=== PATIENT | female | born 1975 | race Caucasian/White ===

== ENCOUNTER → 2024-09-12 | Outpatient (CLI) | payer OTHER, SELFPAY ==
--- NOTE | 2024-09-12 08:45 | XR_ITS ---
Examination: Screening digital mammography, bilateral Computer aided detection 3-D breast Tomosynthesis, bilateral Date and time of exam: September 12, 2024 at 0838 hours Compared to mammograms dating to August 24, 2014 Indication: Screening Technique: Nonmagnified MLO, CC views of the breasts to been obtained, reconstructed from 3-D Tomosynthesis images. R2 computer aided detection program utilized for evaluation of suspicious masses and/or abnormal calcifications. 3-D Tomosynthesis images obtained. Findings: Scattered areas of fibroglandular density 25 mm focus of architectural distortion inner left breast view posterior depth Impression: BI-RADS Category 0: Incomplete: Need additional imaging evaluation 25 mm focus of architectural distortion inner left breast posterior view, follow-up spot tomographic views of this architectural distortion is needed, as well as repeat left MLO view including much more of the posterior breast as well as left breast sonography to complete the workup
== END | disposition home or self-care (01) ==
PROVIDERS: Referring Provider Nurse Practitioner Family; Visit Provider Nurse Practitioner Family
DX: Z12.31 Encounter for screening mammogram for malignant neoplasm of breast (principal); R92.8 Other abnormal and inconclusive findings on diagnostic imaging of breast
CPT/HCPCS: 77063; 77067

== ENCOUNTER 2024-12-09 10:50 | Emergency (ER) | payer OTHER, SELFPAY ==
[2024-12-09 10:51] VITALS: BMI 22.2
[2024-12-09 11:11] VITALS: BP 106/73; PULSE 103; RESP 18; TEMP 36.5; O2SAT 99
--- NOTE | 2024-12-09 11:21 | PD.EDRME ---
Rapid Medical Screening Exam E Arrival date/time: 12/09/24 10:50 49-year-old female with a history of breast cancer presents to the emergency room with a chief complaint of vomiting blood and black stool. Patient states she has also felt increasing weakness. Patient states she called her cancer treatment center and was told to come to the emergency room. I have greeted and performed a focused initial assessment of this patient. A comprehensive ED assessment and evaluation of the patient, analysis of all test results, and completion of the medical decision making process will be conducted by additional ED providers. Chief Complaint: GI Bleed Vital signs: Vital Signs Temperature 97.7 F 12/09/24 11:11 Pulse Rate 103 H 12/09/24 11:11 Respiratory Rate 18 12/09/24 11:11 Blood Pressure 106/73 12/09/24 11:11 Pulse Oximetry (%) 99 12/09/24 11:11 Oxygen Delivery Method Room Air 12/09/24 11:11 Vital signs reviewed by provider: Yes
--- NOTE | 2024-12-09 11:24 | EKG_ITS ---
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
[2024-12-09 11:44] VITALS: BP 76/49; PULSE 80; RESP 17; O2SAT 100
[2024-12-09 11:54] LABS: Basophils # (Auto) 0.1 Thou/mm3 (0.0-0.2); Basophils % (Auto) 0 % (0-2.5); Eosinophils % (Auto) 0 % (0-10); Hematocrit 30.6 % (36.0-46.0); Hemoglobin 10.5 g/dL (12.0-16.0); Immature Granulocytes % (Auto) 4 % (0-0); Immature Granulocytes Auto 0.82 Thou/mm3 (0.00-0.00); Lymphocytes % (Auto) 9 % (10-50); Mean Corpuscular HGB Conc 34.3 g/dl (31.0-37.0); Mean Corpuscular Hemoglobin 30.2 pg (25.0-35.0); Mean Corpuscular Volume 88 fL (80-100); Monocytes # (Auto) 0.9 Thou/mm3 (0.0-0.8); Monocytes % (Auto) 4 % (0-12); Neutrophils # (Auto) 18.8 Thou/mm3 (1.8-7.7); Neutrophils % (Auto) 83 % (37-80); Nucleated Red Blood Cell % 0 /100 WBC (0); Platelet Count 248 Thou/mm3 (140-440); RDW Standard Deviation 40.8 fL (36.4-46.3); Red Blood Count 3.48 Miln/mm3 (4.00-5.20); White Blood Count 22.7 Thou/mm3 (3.6-11.0)
--- NOTE | 2024-12-09 12:01 | PD.EDADULT ---
ED General RME/HPI General Chief complaint: GI Bleed Stated complaint: VOMITING BLOOD SENT BY DOUGLAS SAHA PATIENT Time Seen by Provider: 12/09/24 11:52 Arrival date/time: 12/09/24 10:50 CC: Burgundy colored diarrhea, vomiting blood. HPI 2 episodes of bloody diarrhea at 730 and again at 830 this morning, 1 episode of bloody vomiting. Patient also complaining of lightheaded and dizziness. Patient has a history of gastric bypass. Patient has a recent history of breast cancer diagnosis with chemotherapy started on November 29, first round, first dose. RME / HPI RME / HPI narrative: 12/09/24 10:50 49-year-old female with a history of breast cancer presents to the emergency room with a chief complaint of vomiting blood and black stool. Patient states she has also felt increasing weakness. Patient states she called her cancer treatment center and was told to come to the emergency room. I have greeted and performed a focused initial assessment of this patient. A comprehensive ED assessment and evaluation of the patient, analysis of all test results, and completion of the medical decision making process will be conducted by additional ED providers. Related Data Home Medications ?Medication ?Instructions ?Recorded ?Confirmed amlodipine 5 mg tablet 5 mg PO QDAY 10/25/19 10/25/19 norethindrone (contraceptive) 0.35 0.35 mg PO QDAY 10/25/19 10/25/19 mg tablet (Kalani) paroxetine HCl 10 mg tablet (Paxil) 10 mg PO QDAY 10/25/19 10/25/19 Previous Rx's ?Medication ?Instructions ?Recorded alprazolam 1 mg tablet (Xanax) 1 mg PO BID PRN anxiety #14 tabs 10/25/19 zolpidem 10 mg tablet (Ambien) 10 mg PO QHSPRN PRN insomnia #14 10/25/19 tabs ciprofloxacin HCl 500 mg tablet 500 mg PO BID #14 tabs 12/09/24 (Cipro) Allergies Allergy/AdvReac Type Severity Reaction Status Date / Time avocado Allergy Severe Anaphylaxis Verified 10/25/19 18:03 coconut Allergy Severe Anaphylaxis Verified 10/25/19 18:03 walnut Allergy Severe Anaphylaxis Verified 10/25/19 18:03 Review of Systems Review of Systems Narrative Review of Systems: GEN: No fever, no chills, no weight loss EYES: No discharge, no visual changes, no pain HEENT: No ear pain, no congestion, no sore throat PULM: No shortness of breath, no cough, no congestion CV: No chest pain, no dyspnea on exertion, no palpitations GI: No nausea, no vomiting, + bloody diarrhea, no pain, no constipation : No frequency, no urgency, no dysuria MUSC/SKEL: No joint pain, no back pain SKIN: No rash PSYCH: No hallucinations, no depression HEME/LYMPH: No easy bleeding or bruising tendencies NEURO: No weakness, no headache ED Exam Narrative Physical exam: [General: Pale, not in any acute distress Head normocephalic HEENT: Eyes: Blanched conjunctiva, EOMs intact pupils are PERRLA, all other subsystems of HEENT are within acceptable limits Neck is supple nontender Chest equal chest rise nontender to palpation Respiratory: Clear to auscultation no wheezes crackles or rubs CV: Rate rhythm is regular no murmurs rubs or clicks Abdomen is soft nontender no masses positive bowel sounds all 4 quadrants Back: No CVA tenderness no spinous process tenderness from cervical spine thoracic and lumbar spine Skin: Right anterior chest port placement site clean dry and intact. Otherwise skin is intact no petechiae rash induration ulceration or crepitus Extremities: Moving all extremity against resistance cap refill less than 2 seconds neurosensory intact Neuro: Awake alert oriented x3 Glascow coma 15 no focal deficits] Course Course Course Narrative: Patient states after chemotherapy on the sixth on the 7 she received Neupogen, redraw of blood 3 days ago patient informed me that her white blood cell count was high . CT shows diffuse colitis, initially discussed with the patient the patient states she wanted to talk with Dr. Sommer who is on-call for his oncologist in [place] however after 45 minutes there is been no callback patient now wants to be discharged as suggested by Dr. Bay and myself. Quality Measures VTE prophylaxis Orders Category Date Time Status EKG (ED ONLY) *Do not use* NOW Care 12/09/24 11:[address] abdomen pelvis wo con Stat Exams 12/09/24 12:05 Completed EKG (ED Only) Stat Exams 12/09/24 11:24 Draft CBC Stat Lab 12/09/24 11:39 Completed CMP [Comprehensive Metabolic Panel] Stat Lab 12/09/24 11:39 Completed HCG Qualitative,Urine Stat Lab 12/09/24 12:53 Completed Lipase Stat Lab 12/09/24 11:39 Completed PT [Prothrombin Time with INR] Stat Lab 12/09/24 11:39 Completed PTT [Partial Thromboplastin Time] Stat Lab 12/09/24 11:39 Completed Troponin I Stat Lab 12/09/24 11:39 Completed Type and Screen Stat Lab 12/09/24 11:39 Completed UA [Urinalysis] Stat Lab 12/09/24 12:53 Completed Urine Culture Stat Lab 12/09/24 12:56 Received Ciprofloxacin HCl [Ciprofloxacin] Med 12/09/24 15:28 Discontinued 500 mg PO X1 ONE Vital Signs Vital signs: Vital Signs Temperature 97.7 F 12/09/24 11:11 Pulse Rate 103 H 12/09/24 11:11 Respiratory Rate 18 12/09/24 11:11 Blood Pressure 106/73 12/09/24 11:11 Pulse Oximetry (%) 99 12/09/24 11:11 Oxygen Delivery Method Room Air 12/09/24 11:11 [facility] Patient data External records reviewed:: [facility] previous records and EMS form Clinical information provided by:: patient and EMS Social determinants that could affect healthcare access:: none Patient has the following chronic illnesses:: Gastric bypass No breast cancer on chemotherapy. How is presenting disease/condition affected by chronic disease/condition?: uneffected by Evaluation data The following diagnostics were reviewed and interpreted by me:: lab results, radiology exam(s) and EKG tracing(s) Lab and/or radiology exams considered but not ordered:: CBC shows a leukocytosis of 22.7 and H&H of 10.5 and 30.6 respectively, platelets of 248. Coags within acceptable limits CMP shows sodium 137 potassium 3.4 chloride of 108 carbon dioxide of 19.9 gap of 9 BUN of 21 creatinine 0.7 total bili of 0.2 AST of 56 ALT 134 alk phos of 155 Troponin is negative Lipase of 58. Interpretation Summary: CBC shows a leukocytosis, with anemia however leukocytosis I suspect is secondary to the Neupogen. CT shows colitis. This was discussed with Dr. Bay who feels patient can be discharged home to follow-up with him within 5 to 7 days. Patient strongly advised of his worsening of symptoms or fever return immediately to the emergency room for reevaluation. Medications Medications considered but not ordered:: None Medication administrations:: Medication Administration History Discontinued Medications Ciprofloxacin (Ciprofloxacin Hcl 250 Mg Tablet) 500 mg PO X1 ONE Stop: 12/09/24 15:29 None Consultations Consultation(s) initiated? (list below): No Diagnosis Differential Diagnosis ED Complaint MDM: Colitis perforation ileus Most likely diagnosis given after review of the tests above:: Colitis Admission Indicated Admission indicated?: not indicated Explain why admission is indicated or not indicated:: Stable for discharge Admission Request Was there a request for admission?: No Disposition Plan Disposition Plan: Discharge Discharge Attestation Discharge Attestation: The patient and all family members were given an opportunity to ask questions and understood the discharge instructions. Discharge instructions specifically effects, indications for sooner follow up or return to the emergency department, and the expected course of current diagnosis. Patient condition: Stable Medical Decision Making Differential Diagnosis Differential Diagnosis: Colitis perforation ileus Lab Data 12/09/24 11:39 12/09/24 11:39 Labs: Lab Results 12/09/24 12/09/24 Range/Units 11:39 12:53 WBC 22.7 H (3.6-11.0) Thou/mm3 RBC 3.48 L (4.00-5.20) Miln/mm3 Hgb 10.5 L (12.0-16.0) g/dL Hct 30.6 L (36.0-46.0) % MCV 88 (80-100) fL MCH 30.2 (25.0-35.0) pg MCHC 34.3 (31.0-37.0) g/dl RDW Std Deviation 40.8 (36.4-46.3) fL Plt Count 248 (140-440) Thou/mm3 Neut % (Auto) 83 H (37-80) % Lymph % (Auto) 9 L (10-50) % [place] % (Auto) 4 (0-12) % Eos % (Auto) 0 (0-10) % Baso % (Auto) 0 (0-2.5) % Neut # (Auto) 18.8 H (1.8-7.7) Thou/mm3 Lymph # (Auto) 2.0 (1.0-4.8) Thou/mm3 [place] # (Auto) 0.9 H (0.0-0.8) Thou/mm3 Eos # (Auto) 0.0 (0.0-0.5) Thou/mm3 Baso # (Auto) 0.1 (0.0-0.2) Thou/mm3 Immature Gran # (Auto) 0.82 H (0.00-0.00) Thou/mm3 Absolute Nucleated RBC 0.00 (0.00-0.00) Thou/mm3 Immature Gran % 4 H (0-0) % Nucleated RBC % 0 (0) /100 WBC PT 11.3 (9.0-12.2) Seconds INR 1.0 (0.9-1.3) APTT 23.0 (22.0-36.0) Seconds Sodium 137 (136-145) mMol/L Potassium 3.4 (3.4-5.1) mMol/L Chloride 108 H (98-107) mMol/L Carbon Dioxide 19.9 L (20.0-31.0) mMol/L Anion Gap 9 (7-16) BUN 21 (9-23) mg/dL Creatinine 0.7 (0.6-1.3) mg/dL Estim Creat Clear Calc 92.5 (>60) mL/min eGFR > 60 (60 - ) See Note BUN/Creatinine Ratio 30 H (12-20) Ratio Glucose 169 H (74-106) mg/dL Calculated Osmolality 280 (275-295) Calcium 9.1 (8.3-10.6) mg/dL Corrected Calcium 9.3 (8.5-10.1) mg/dL Total Bilirubin 0.2 L (0.3-1.2) mg/dL AST 56 H (0-34) U/L ALT 134 H (10-49) U/L Alkaline Phosphatase 155 H (46-116) U/L Troponin I < 0.002 (0.0-0.045) ng/mL Total Protein 5.7 (5.7-8.2) gm/dL Albumin 3.8 (3.5-5.0) gm/dL Globulin 1.9 L (2.3-3.5) gm/dL Albumin/Globulin Ratio 2.0 (1.2-2.2) Lipase 58 H (12-53) U/L Ur Collection Type Clean Catch Urine Color Yellow (Lt Yel-Yel) Urine Clarity Clear (Clear/Hazy) Urine pH 6.0 (5.0-7.0) Ur Specific [place] 1.030 (1.001-1.035) Urine Protein 1+ A (Neg - Trace) Urine Glucose (UA) Negative (Negative) Urine Ketones 1+ A (Negative) Urine Blood Negative (Negative) Urine Nitrite Negative (Negative) Urine Bilirubin 1+ A (Negative) Urine Urobilinogen (Auto) Negative (0.0-1.0) mg/dL Ur Leukocyte Esterase Negative (Negative) Urine RBC 1 (0-3) /hpf Urine WBC 3 (0-5) /hpf Ur Squamous Epith Cells 1 (0-5) /hpf Urine Bacteria Rare (None) Urine HCG, Qual Negative Blood Type A Negative Antibody Screen NEGATIVE Blood Bank Wristband ID Yes Discharge Plan Plan Patient Disposition: HOME (Self Care) Patient condition on transfer: Stable Prescriptions/Referrals Prescriptions/Med Rec: New ciprofloxacin HCl [Cipro] 500 mg tablet 500 mg PO BID Qty: 14 0RF No Action paroxetine HCl [Paxil] 10 mg Tablet 10 mg PO QDAY amlodipine 5 mg Tablet 5 mg PO QDAY norethindrone (contraceptive) [Kalani] 0.35 mg Tablet 0.35 mg PO QDAY zolpidem [Ambien] 10 mg tablet 10 mg PO QHSPRN PRN (Reason: insomnia) Qty: 14 0RF alprazolam [Xanax] 1 mg tablet 1 mg PO BID PRN (Reason: anxiety) Qty: 14 0RF Referrals: Elliot Boggs MD [Primary Care Provider] - In 1 week Jae Bay MD [Physician] - In 1 week Problem List Clinical Impression: Colitis, Bloody diarrhea Patient/Caregiver Discharge Instructions Education Materials: Understanding Colitis Additional Instructions: Take the antibiotics as prescribed, follow-up with Dr. Bay in 1 week if there is worsening of symptoms in spite of the medications return the emergency room immediately for further evaluation. Print Language: Romansh Stand Alone Forms: Randee Award Info., Patient Portal Info Letter, Work/School Release PA/STEWARD/STEWARDESS SECOND CLASS Supervising Physician PA/STEWARD/STEWARDESS SECOND CLASS Supervising Physician: Shawn Hernandez ENP
--- NOTE | 2024-12-09 12:05 | XR_ITS ---
Examination: CT abdomen and pelvis without contrast. Coronal 3-D reconstructions. Sagittal 2-D reconstructions. Date and time of exam:December 09, 2024 1424 hrs. Indications: Bloody diarrhea this week CTDI: vol (mGy): 6.16 DLP: (mGycm): 308 Technique: Axial images of the abdomen have been obtained, 3 mm slice thickness Intravenous contrast material has not been administered. Low dose protocols were performed. One or more of the following dose reduction techniques were used; automated exposure control, adjustment of the mA and/or KV according to patient size, use of iterative reconstruction technique. Findings: No focal liver or splenic lesions Absent gallbladder Gastric sutures No pancreatic or adrenal mass No renal or ureteral calculi, no hydronephrosis Diffuse colitis pattern with fluid-filled colon and wall thickening No bowel obstruction No bladder mass Advanced degenerative disc disease L5-S1 No pelvic mass Impression: Diffuse nonspecific colitis pattern, differential would include ulcerative colitis, Crohn's disease
[2024-12-09 12:22] LABS: Alanine Aminotransferase 134 U/L (10-49); Albumin, Serum 3.8 gm/dL (3.5-5.0); Alkaline Phosphatase 155 U/L (46-116); Anion Gap 9 (7-16); Aspartate Amino Transferase 56 U/L (0-34); BUN/Creatinine Ratio 30 Ratio (12-20); Bilirubin,Total 0.2 mg/dL (0.3-1.2); Blood Urea Nitrogen 21 mg/dL (9-23); Calcium 9.1 mg/dL (8.3-10.6); Calcium (Corrected) 9.3 mg/dL (8.5-10.1); Carbon Dioxide 19.9 mMol/L (20.0-31.0); Chloride 108 mMol/L (98-107); Creatinine (Component) 0.7 mg/dL (0.6-1.3); Estimated Creatinine Clearance 92.5 mL/min (>60); Globulin 1.9 gm/dL (2.3-3.5); Glucose 169 mg/dL (74-106); Lipase 58 U/L (12-53); Osmolality,Calculated 280 (275-295); Potassium 3.4 mMol/L (3.4-5.1); Sodium 137 mMol/L (136-145); Total Protein 5.7 gm/dL (5.7-8.2); Troponin I < 0.002 ng/mL (0.0-0.045); eGFR > 60 See Note
[2024-12-09 12:27] LABS: Prothrombin Time 11.3 Seconds (9.0-12.2)
[2024-12-09 12:30] VITALS: BP 99/63; PULSE 82; RESP 16; O2SAT 96
[2024-12-09 13:22] LABS: Collection Type, Urine Clean Catch
[2024-12-09 13:36] LABS: Bacteria,Urine Rare; Bilirubin,Urine 1+ (Negative); Blood,Urine Negative (Negative); Clarity,Urine Clear (Clear/Hazy); Color,Urine Yellow (Lt Yel-Yel); Glucose, Urine Negative (Negative); Ketones,Urine 1+ (Negative); Leukocyte Esterase,Urine Negative (Negative); Nitrite,Urine Negative (Negative); Protein,Urine 1+ (Neg - Trace); RBC,Urine 1 /hpf (0-3); Squamous Epithelial Cell,Urine 1 /hpf (0-5); Urobilinogen,Urine Negative mg/dL (0.0-1.0); WBC,Urine 3 /hpf (0-5)
[2024-12-09 13:37] LABS: HCG Qualitative,Urine Negative
--- NOTE | 2024-12-09 13:38 | PC.NURSE ---
ASSISTED PT TO BR, PT LIGHT HEADED WHEN SHE GOT UP TO BATHROOM, THIS RN ASSISTED PT TO WHEELCHAIR. PT ABLE TO PROVIDE URINE. DENIES ANY ABDOMINAL DISCOMFORT AT THIS TIME, DENIES HAVING AND NAUSEA AT THIS TIME OR ANY PAIN. PT IS IN AGREEMENT WITH POC, MOM AT BEDSIDE, VSS ON TELE. WILL CONTINUE TO FOLLOW POC.
[2024-12-09 14:54] VITALS: BP 118/69; PULSE 82; RESP 17; TEMP 36.8; O2SAT 95
[2024-12-09 16:09] VITALS: BP 107/75; PULSE 94; RESP 16; TEMP 36.7; O2SAT 95
[2024-12-09] MEDS: CIPROFLOXACIN HCL 250 MG TABLET 500 MG PO (16:26)
[2024-12-09 16:37] VITALS: BP 107/75; PULSE 92; RESP 20; TEMP 36.7; O2SAT 100
== END 2024-12-09 16:39 | disposition home or self-care (01) ==
PROVIDERS: Nurse Practitioner Family; Emergency Provider Emergency Medicine; PCP Hospitalist
DX: K52.9 Noninfective gastroenteritis and colitis, unspecified (principal)
CPT/HCPCS: 36415; 74176; 80053; 81001; 81025; 83690; 84484; 85025; 85610; 85730; 86850; 86900; 86901; 87086; 93005; 99284; A9270

== ENCOUNTER 2024-12-10 19:41 | Inpatient (IN) | payer OTHER, SELFPAY ==
[2024-12-10] VITALS (22 sets, daily range): BP systolic 71–121; BP diastolic 45–66; PULSE 101–132; RESP 3–100; TEMP 36.3–36.9; O2SAT 96–100; BMI 23.0
--- NOTE | 2024-12-10 19:45 | PD.EDADULT ---
ED General RME/HPI General Chief complaint: Nausea/Vomiting/Diarrhea Stated complaint: LOW BLOOD PRESSURE DIARRHEA Time Seen by Provider: 12/10/24 19:44 Arrival date/time: 12/10/24 19:41 CC: Syncope HPI patient presents to the ER via EMS with hypotension and syncope after passing a large amount of bloody diarrhea. Patient was seen here yesterday by myself, the patient has a history of breast cancer recent diagnosis started on her first round of chemotherapy on November 29, patient is followed by cancer center in [place]. Patient had a complete workup yesterday including a CT of the abdomen pelvis which showed pancolitis. Patient's case at that time was discussed with Dr. Bay who agrees patient can go home to follow-up with him in 1 week on outpatient basis however today the patient had a large bowel movement that resulted in syncope. Patient is pale appearing awake alert EMS report hypotension but no repeat syncope during transport. Patient denies chest pain shortness of breath. Related Data Home Medications ?Medication ?Instructions ?Recorded ?Confirmed amlodipine 5 mg tablet 5 mg PO QDAY 10/25/19 10/25/19 norethindrone (contraceptive) 0.35 0.35 mg PO QDAY 10/25/19 10/25/19 mg tablet (Kalani) paroxetine HCl 10 mg tablet (Paxil) 10 mg PO QDAY 10/25/19 10/25/19 Previous Rx's ?Medication ?Instructions ?Recorded alprazolam 1 mg tablet (Xanax) 1 mg PO BID PRN anxiety #14 tabs 10/25/19 zolpidem 10 mg tablet (Ambien) 10 mg PO QHSPRN PRN insomnia #14 10/25/19 tabs ciprofloxacin HCl 500 mg tablet 500 mg PO BID #14 tabs 12/09/24 (Cipro) Allergies Allergy/AdvReac Type Severity Reaction Status Date / Time avocado Allergy Severe Anaphylaxis Verified 10/25/19 18:03 coconut Allergy Severe Anaphylaxis Verified 10/25/19 18:03 walnut Allergy Severe Anaphylaxis Verified 10/25/19 18:03 Review of Systems Review of Systems Narrative Review of Systems: GEN: No fever, no chills, no weight loss EYES: No discharge, no visual changes, no pain HEENT: No ear pain, no congestion, no sore throat PULM: No shortness of breath, no cough, no congestion CV: No chest pain, no dyspnea on exertion, no palpitations GI: No nausea, no vomiting, + diarrhea, no pain, no constipation : No frequency, no urgency, no dysuria MUSC/SKEL: No joint pain, no back pain SKIN: No rash PSYCH: No hallucinations, no depression HEME/LYMPH: No easy bleeding or bruising tendencies NEURO: No weakness, no headache Past Medical History Past Medical History CARDIAC: Positive Hypertension; Negative Congestive Heart Failure RESPIRATORY: Negative Chronic Obstructive Pulmonary Disease (COPD) GENITOURINARY: Negative Renal Disease ENDOCRINE: Negative Diabetes Mellitus Type 1 or Diabetes Mellitus Type 2 PSYCHO/SOCIAL: Positive Anxiety Surgical History SURGICAL: Positive Abdominal Surgery (cholecystectomy), Gastric Bypass Surgery and Section (2) Social History SMOKING STATUS: Never smoker SUBSTANCE USE: does not use ED Exam Narrative Physical exam: [General: In moderate discomfort but not in any acute distress Head normocephalic HEENT: Eyes pupils are PERRLA EOMs are intact blanched conjunctiva mouth pink and pale dry membranes swallow symmetrical phonation is normal. Nose no rhinorrhea or otorrhea. All other subsystems of HEENT are within acceptable limits Neck is supple nontender Chest equal chest rise nontender to palpation Respiratory: Clear to auscultation no wheezes crackles or rubs CV: Rate rhythm is regular, tachycardic no murmurs rubs or clicks Abdomen is soft nontender no masses positive bowel sounds all 4 quadrants Back: No CVA tenderness no spinous process tenderness from cervical spine thoracic and lumbar spine Skin: PowerPort in the right anterior chest insertion site clean dry and intact healing well. Overall pale pale, intact no petechiae rash induration ulceration or crepitus Extremities: Moving all extremity against resistance cap refill less than 2 seconds neurosensory intact Neuro: Awake alert oriented x3 Glascow coma 15 no focal deficits] Course Quality Measures none Orders Category Date Time Status Assistant Mechanic STAT Care 12/10/24 20:52 Active Continuous Pulse Oximetry STAT Care 12/10/24 20:52 Completed EKG (ED ONLY) *Do not use* NOW Care 12/10/24 19:50 Completed In and Out Catheter X1PRN Care 12/10/24 20:52 Active NPO STAT Care 12/10/24 20:52 Active Strict Intake and Output Routine Care 12/10/24 20:52 Ordered Transfuse,blood/blood products NOW Care 12/10/24 21:09 Active Consult to Gastroenterology Stat Cons 12/10/24 21:20 Ordered EKG (ED Only) Stat Exams 12/10/24 19:50 Draft B-Type Natriuretic Peptide Stat Lab 12/10/24 20:10 Completed Blood Culture (Lab) Stat Lab 12/10/24 20:10 Received CBC Stat Lab 12/10/24 20:10 Results Comprehensive Metabolic Panel Stat Lab 12/10/24 20:10 Results Drug Screen,Urine Stat Lab 12/10/24 19:50 Ordered LDH (Lactate Dehydrogenase) Stat Lab 12/10/24 20:10 Results Lactic Acid [Lactate (Lactic Acid)] Stat Lab 12/10/24 20:10 Results Lipase Stat Lab 12/10/24 20:10 Results Magnesium Stat Lab 12/10/24 20:10 Results Partial Thromboplastin Time Stat Lab 12/10/24 20:[address] Review Blood Smear Stat Lab 12/10/24 20:10 Results Procalcitonin Stat Lab 12/10/24 20:10 Results Prothrombin Time with INR Stat Lab 12/10/24 20:10 Received Stool Culture Stat Lab 12/10/24 20:02 Ordered Troponin I Stat Lab 12/10/24 20:10 Results Type and Screen Stat Lab 12/10/24 20:10 Results Urinalysis Stat Lab 12/10/24 19:50 Ordered prbc [Red Blood Cells] Stat Lab 12/10/24 20:10 Results Acetaminophen Ivpb [Ofirmev Inj] Med 12/10/24 20:26 Pending 1,000 mg in 100 ml IV Q6HR CIPROFLOXACIN/D5w 400 MG IVPB [Cipro Ivpb] Med 12/10/24 20:48 Active 400 mg in 200 ml IV X1 POTASSIUM CHL 10 mEq IVPB [Kcl Ivpb] Med 12/10/24 21:19 Ordered 10 meq in 100 ml IV Q1H Ringers Lactated 1000 ml [Lactated Ringers] 1,000 ml Med 12/10/24 19:51 Discontinued IV 999 mls/hr Ringers Lactated 1000 ml [Lactated Ringers] 1,000 ml Med 12/10/24 20:01 Discontinued IV 999 mls/hr Ringers Lactated 1000 ml [Lactated Ringers] 1,000 ml Med 12/10/24 20:48 Active IV 999 mls/hr metroNIDAZOLE/NS 500 MG IVPB [Flagyl 500 mg IV] Med 12/10/24 21:16 Ordered 500 mg in 100 ml IV Q8HR Oxygen Delivery NOW RT 12/10/24 20:52 Active Vital Signs Vital signs: Vital Signs Temperature 97.6 F 12/10/24 19:55 Pulse Rate 125 H 12/10/24 19:55 Respiratory Rate 20 12/10/24 19:55 Blood Pressure 71/49 L 12/10/24 19:55 Pulse Oximetry (%) 96 12/10/24 19:55 Oxygen Delivery Method Room Air 12/10/24 19:55 [facility] Patient data External records reviewed:: [facility] previous records and EMS form Clinical information provided by:: patient and EMS Social determinants that could affect healthcare access:: none Patient has the following chronic illnesses:: Breast cancer, gastric bypass, first round of chemotherapy 11 days ago How is presenting disease/condition affected by chronic disease/condition?: exacerbated by Evaluation data The following diagnostics were reviewed and interpreted by me:: lab results, radiology exam(s) and EKG tracing(s) Lab and/or radiology exams considered but not ordered:: EKG performed at 2005 shows a ventricular rate of 126 WI interval 133 QRS of 8 5 QTc of 417 the sinus tachycardia nonspecific ST segment changes. CBC shows WBCs at 45.7 H&H of 5.7 and 16 respectively which is a 5 g of drop from 24 hours ago. Platelets at 227 left shift no bandemia CMP shows sodium 140 potassium of 2.8 chloride of 111 carbon oxide of 16.9 anion gap of 12 BUN of 1220 creatinine of 0.8 glucose of 164 Lactic of 4.1 Calcium of 8.2 Total bilirubin of 0.2 ALT elevated 7 1 Interpretation Summary: Patient's laboratory findings thus far were discussed with Dr. Bay, GI who agrees to consult with the patient with admission start the patient on Cipro and Flagyl liquid diet. Patient's case discussed with Dr. Seo agrees to accept the patient for admission, patient is in agreement with this plan. Medications Medications considered but not ordered:: None Medication administrations:: Medication Administration History Acetaminophen (Ofirmev Inj) 1,000 mg in 100 mls @ 250 mls/hr IV Q6HR DWAYNE Stop: 12/11/24 12:23 Lactated Ringer's (Lactated Ringers) 1,000 mls @ 999 mls/hr IV .Q1H1M ONE Stop: 12/10/24 21:48 Ciprofloxacin/Dextrose (Cipro Ivpb) 400 mg in 200 mls @ 200 mls/hr IV X1 ONE Stop: 12/10/24 21:47 Metronidazole (Flagyl 500 Mg Iv) 500 mg in 100 mls @ 200 mls/hr IV Q8HR DWAYNE Stop: 12/17/24 21:15 Potassium Chloride (Kcl Ivpb) 10 meq in 100 mls @ 100 mls/hr IV Q1H DWAYNE Stop: 12/11/24 01:18 Discontinued Medications Lactated Ringer's (Lactated Ringers) 1,000 mls @ 999 mls/hr IV .Q1H1M ONE Stop: 12/10/24 20:51 Last Admin: 12/10/24 20:15 Dose: 999 mls/hr Documented By: TC Lactated Ringer's (Lactated Ringers) 1,000 mls @ 999 mls/hr IV .Q1H1M ONE Stop: 12/10/24 21:01 Last Admin: 12/10/24 20:14 Dose: 999 mls/hr Documented By: MELVIN None Consultations Consultation(s) initiated? (list below): Yes Consultation #1 (Physician, Specialty, Details): Phu Time: 21:29 Diagnosis Differential Diagnosis ED Complaint MDM: Leukocytosis hemorrhagic anemia diarrhea hypokalemia hypocalcemia syncope Most likely diagnosis given after review of the tests above:: Dehydration syncope leukocytosis anemia, diarrhea hypokalemia hypocalcemia Admission Indicated Admission indicated?: indicated Explain why admission is indicated or not indicated:: Requires further medical management Admission Request Was there a request for admission?: No Disposition Plan Disposition Plan: Admit Medical Decision Making Differential Diagnosis Differential Diagnosis: Leukocytosis hemorrhagic anemia diarrhea hypokalemia hypocalcemia syncope Lab Data 12/10/24 20:10 12/10/24 20:10 Labs: Lab Results 12/10/24 Range/Units 20:10 WBC 45.7 H* D (3.6-11.0) Thou/mm3 RBC 1.84 L* (4.00-5.20) Miln/mm3 Hgb 5.7 L* D (12.0-16.0) g/dL Hct 16.1 L* (36.0-46.0) % MCV 88 (80-100) fL MCH 31.0 (25.0-35.0) pg MCHC 35.4 (31.0-37.0) g/dl RDW Std Deviation 39.8 (36.4-46.3) fL Plt Count 227 (140-440) Thou/mm3 Neut % (Auto) 83 H (37-80) % Lymph % (Auto) 11 (10-50) % Arthur % (Auto) 3 (0-12) % Eos % (Auto) 0 (0-10) % Baso % (Auto) 0 (0-2.5) % Neut # (Auto) 37.8 H (1.8-7.7) Thou/mm3 Lymph # (Auto) 4.8 (1.0-4.8) Thou/mm3 Arthur # (Auto) 1.5 H (0.0-0.8) Thou/mm3 Eos # (Auto) 0.0 (0.0-0.5) Thou/mm3 Baso # (Auto) 0.1 (0.0-0.2) Thou/mm3 Immature Gran # (Auto) 1.50 H (0.00-0.00) Thou/mm3 Absolute Nucleated RBC 0.05 H (0.00-0.00) Thou/mm3 Immature Gran % 3 H (0-0) % Nucleated RBC % 0 (0) /100 WBC Sodium 140 (136-145) mMol/L Potassium 2.8 L D (3.4-5.1) mMol/L Chloride 111 H (98-107) mMol/L Carbon Dioxide 16.9 L (20.0-31.0) mMol/L Anion Gap 12 (7-16) BUN 20 (9-23) mg/dL Creatinine 0.8 (0.6-1.3) mg/dL Estim Creat Clear Calc 80.9 (>60) mL/min eGFR > 60 (60 - ) See Note BUN/Creatinine Ratio 25 H (12-20) Ratio Glucose 164 H (74-106) mg/dL Calculated Osmolality 286 (275-295) Lactic Acid 4.1 H* (0.4-2.0) mMol/L Calcium 8.2 L (8.3-10.6) mg/dL Corrected Calcium 9.1 (8.5-10.1) mg/dL Magnesium 1.6 (1.6-2.6) mg/dL Total Bilirubin 0.2 L (0.3-1.2) mg/dL AST 28 (0-34) U/L ALT 71 H (10-49) U/L Alkaline Phosphatase 111 D (46-116) U/L B-Natriuretic Peptide < 20 (0-100) pg/mL Total Protein 4.4 L (5.7-8.2) gm/dL Albumin 2.9 L D (3.5-5.0) gm/dL Globulin 1.5 L (2.3-3.5) gm/dL Albumin/Globulin Ratio 1.9 (1.2-2.2) Lipase 48 (12-53) U/L Procalcitonin 0.11 (0.0-0.49) ng/ml Blood Type A Negative Antibody Screen NEGATIVE Crossmatch See Detail Blood Bank Wristband ID Yes Discharge Plan Plan Patient Disposition: Other Care w/in Hosp ([facility]) Patient condition on transfer: Stable Prescriptions/Referrals Prescriptions/Med Rec: No Action paroxetine HCl [Paxil] 10 mg Tablet 10 mg PO QDAY amlodipine 5 mg Tablet 5 mg PO QDAY norethindrone (contraceptive) [Kalani] 0.35 mg Tablet 0.35 mg PO QDAY zolpidem [Ambien] 10 mg tablet 10 mg PO QHSPRN PRN (Reason: insomnia) Qty: 14 0RF alprazolam [Xanax] 1 mg tablet 1 mg PO BID PRN (Reason: anxiety) Qty: 14 0RF ciprofloxacin HCl [Cipro] 500 mg tablet 500 mg PO BID Qty: 14 0RF Problem List Clinical Impression: Syncope, Bloody diarrhea, Hypotension, Anemia, Hypokalemia, Hypocalcemia, Sepsis Patient/Caregiver Discharge Instructions Print Language: Cook Islander Stand Alone Forms: Randee Award Info., Patient Portal Info Letter
--- NOTE | 2024-12-10 19:50 | EKG_ITS ---
[facility] Test Date: 2024-12-10 Pat Name: ZAFAR MONSON Department: Room: - Gender: Female Logistics Administrator: : 1975 Requested By: Shawn Valverde Order Number: [id number] Reading MD: Shawn Valverde Measurements Intervals Decker Rate: 126 P: 76 NM: 133 QRS: 63 QRSD: 85 T: 59 QT: 342 QTc: 496 Interpretive Statements SINUS TACHYCARDIA NONSPECIFIC ST & T-WAVE ABNORMALITY ABNORMAL RHYTHM ECG Compared to ECG 12/09/2024 11:29:08 Sinus rhythm no longer present T-wave abnormality still present /store/S0/[id number]/ecg/[id number].pdf
[2024-12-10] MEDS: RINGERS LACTATED 1000 ML 1,000 ML 999 ML IV ×3 (20:14→21:43)
[2024-12-10 20:47] LABS: Lactate (Lactic Acid) 4.1 mMol/L (0.4-2.0)
[2024-12-10 20:48] LABS: Basophils # (Auto) 0.1 Thou/mm3 (0.0-0.2); Basophils % (Auto) 0 % (0-2.5); Eosinophils % (Auto) 0 % (0-10); Immature Granulocytes % (Auto) 3 % (0-0); Lymphocytes # (Auto) 4.8 Thou/mm3 (1.0-4.8); Lymphocytes % (Auto) 11 % (10-50); Mean Corpuscular HGB Conc 35.4 g/dl (31.0-37.0); Mean Corpuscular Volume 88 fL (80-100); Monocytes # (Auto) 1.5 Thou/mm3 (0.0-0.8); Monocytes % (Auto) 3 % (0-12); Neutrophils # (Auto) 37.8 Thou/mm3 (1.8-7.7); Neutrophils % (Auto) 83 % (37-80); Nucleated Red Blood Cell # 0.05 Thou/mm3 (0.00-0.00); Nucleated Red Blood Cell % 0 /100 WBC (0); Platelet Count 227 Thou/mm3 (140-440); RDW Standard Deviation 39.8 fL (36.4-46.3)
[2024-12-10 21:09] LABS: White Blood Count 45.7 Thou/mm3 (3.6-11.0)
[2024-12-10 21:10] LABS: Alanine Aminotransferase 71 U/L (10-49); Albumin, Serum 2.9 gm/dL (3.5-5.0); Albumin/Globulin Ratio 1.9 (1.2-2.2); Alkaline Phosphatase 111 U/L (46-116); Anion Gap 12 (7-16); Aspartate Amino Transferase 28 U/L (0-34); BUN/Creatinine Ratio 25 Ratio (12-20); Bilirubin,Total 0.2 mg/dL (0.3-1.2); Blood Urea Nitrogen 20 mg/dL (9-23); Calcium 8.2 mg/dL (8.3-10.6); Calcium (Corrected) 9.1 mg/dL (8.5-10.1); Carbon Dioxide 16.9 mMol/L (20.0-31.0); Chloride 111 mMol/L (98-107); Creatinine (Component) 0.8 mg/dL (0.6-1.3); Estimated Creatinine Clearance 80.9 mL/min (>60); Globulin 1.5 gm/dL (2.3-3.5); Glucose 164 mg/dL (74-106); Hematocrit 16.1 % (36.0-46.0); Hemoglobin 5.7 g/dL (12.0-16.0); Lipase 48 U/L (12-53); Magnesium 1.6 mg/dL (1.6-2.6); Osmolality,Calculated 286 (275-295); Potassium 2.8 mMol/L (3.4-5.1); Procalcitonin 0.11 ng/ml (0.0-0.49); Red Blood Count 1.84 Miln/mm3 (4.00-5.20); Sodium 140 mMol/L (136-145); Total Protein 4.4 gm/dL (5.7-8.2); eGFR > 60 See Note
[2024-12-10 21:22] LABS: B-Type Natriuretic Peptide < 20 pg/mL (0-100)
[2024-12-10 21:42] LABS: Path Review Blood Smear Sent to Pathologist
[2024-12-10] MEDS: POTASSIUM CHL 10 mEq IVPB 10 MEQ/100 ML BAG 100 MEQ IV ×3 (21:44→23:41)
[2024-12-10 21:45] LABS: INR 1.1 (0.9-1.3); Partial Thromboplastin Time 21.7 Seconds (22.0-36.0); Prothrombin Time 11.6 Seconds (9.0-12.2)
--- NOTE | 2024-12-10 21:48 | EVENTNT_ITS ---
Documentation for date of: 12/10/24 Event Note Event Note: A 49-year-old female presented to the ER with the chief complaint of syncope. The patient reports a history of breast cancer diagnosed via mammogram, currently undergoing neoadjuvant chemotherapy, with her first session adminis tered on November 29. Since starting chemotherapy, she has experienced persistent diarrhea. Yesterday, she vomited fresh blood and noticed blood in her diarrhea. She was evaluated at this ER, where a CT scan showed colitis, and she was discharged with outpatient follow-up. Today, while at home, she experienced dizziness, felt weak, and subsequently lost consciousness for an unknown duration. Upon regaining consciousness, she called her son, and EMS was activated. She reports ongoing diarrhea with fresh blood, significant thirst, and intermittent dizziness but denies fever, cough, or respiratory distress. She has no abdominal pain but has complete loss of bowel control. Her appetite is poor, but she managed to eat small amounts today. The patient has a history of hypertension managed with amlodipine 10 mg, as well as anxiety, for which she takes paroxetine and Xanax as needed. She also takes loperamide for diarrhea and compazine for nausea. She denies smoking and alcohol use. Surgical history includes two C-sections, arthroscopic knee surgery, cholecystectomy, and breast augmentation. She had a prior appointment scheduled with GI for a routine colonoscopy, but this was deferred due to her breast cancer treatment. She has no known drug allergies. She lives at home and has two adult children. In the Emergency Department, the patient was initially evaluated with vital signs recorded as T 97.6?F, HR 125, RR 20, and BP 71/49. Laboratory results showed severe anemia (Hb 5.7, previously 10.5 on 12/09). WBC 45.7, platelets 227, Na 140, K 2.8, BUN 20, creatinine 0.8, glucose 164, procalcitonin 0.11, and lactic acid 4.1. Imaging yesterday revealed a diffuse nonspecific colitis pattern, with a differential diagnosis including ulcerative colitis and Crohn?s disease. EKG demonstrated tachycardia. The GI team was consulted, with a plan to transfuse 3 units of PRBC, and the patient was admitted for further management. #GI Bleeding #Colitis * Assessment: The patient presents with syncope, profound hypotension (BP 71/49), tachycardia, and severe anemia (Hb 5.7), consistent with hemorrhagic shock likely due to ongoing lower GI bleeding. Given her history of chemotherapy-induced colitis and prior hematochezia, the most likely etiology is chemotherapy-associated colitis with possible ischemic or infectious components. Persistent leukocytosis (WBC 45.7) raises concern for sepsis or a systemic inflammatory response. Elevated lactate (4.1) suggests hypoperfusion. * Plan: * Transfuse 3 units PRBC, repeat Hb after transfusion. * IV fluid resuscitation with lactated Ringer?s. * Monitor hemodynamics closely. * Hold antihypertensive medications. * GI consult for further evaluation. * No immediate plan for repeat CT as the abdomen is soft without rebound t enderness. * Start IV ciprofloxacin and metronidazole for possible infectious colitis. * Obtain stool studies: C. difficile, bacterial cultures, fecal WBC. * Blood cultures due to leukocytosis and concern for sepsis. * Replete potassium (K 2.8) to maintain >4.0. * Monitor renal function, lactic acid clearance, and metabolic status. DVT prophylaxis: SCD
[2024-12-10] MEDS: metroNIDAZOLE/NS 500 MG IVPB 500 MG/100 ML BAG 200 MG IV (21:49)
[2024-12-10 22:03] LABS: Troponin I < 0.020 ng/mL (0.0-0.045)
[2024-12-10] MEDS: RINGERS LACTATED 1000 ML 1,000 ML 125 ML IV (22:07)
[2024-12-10] MEDS: Magnesium Sulfate 2 GM Ivpb 2 GM/50 ML BAG IV (22:07)
[2024-12-10] MEDS: ACETAMINOPHEN IVPB 1,000 MG/100 ML VIAL 250 MG IV (22:07)
--- NOTE | 2024-12-10 22:38 | PD.RESHP ---
Documentation for date of: 12/10/24 HPI History of Present Illness Chief complaint: Bloody diarrhea History of present illness: Ms. Burnette is a 49-year-old female with past medical history of hypertension, anxiety and recently diagnosed breast cancer (October 2024) currently undergoing neoadjuvant chemotherapy with her first session administered on November 29 at [facility] who presented to [facility] emergency department on 12/10/2024 with a chief complaint of diarrhea. According to the patient she has been experiencing diarrhea since starting chemotherapy, yesterday she noted blood in her diarrhea, reported two episodes of emesis, reports noticing bright red blood in vomitus. Patient was evaluated in the emergency department yesterday, where CT scan showed colitis and she was discharged with outpatient follow-up. Today while at home she experienced dizziness, felt weak and subsequently lost consciousness for unknown duration, reported having significant diarrhea today as well. Upon regaining consciousness she called family and EMS was called. Patient continues to complain of ongoing diarrhea with bright red blood, significant thirst and intermittent dizziness and denies any fever cough or respiratory distress. She currently denies any abdominal pain, reports complete loss of bowel control and poor appetite. ED Course: ED Vitals: On presentation in ED BP 71/49, P 125, RR 20, temp 97.6, O2 sat 96 on room air ED Labs: ED labs significant for WBC 45.7, RBC 1.84, hemoglobin 5.7, hematocrit 16.1, 83% neutrophil, 37.8, potassium 2.8, chloride 111, venous CO2 16.9, glucose 164, lactate 4.1, calcium 8.2 ALT 71 total protein 4.4, albumin 2.9, globulin 1.5 ED Imaging:EKG in ED significant for sinus tachycardia QTc 496. CT abdomen pelvis from 12/09/2024 shows Diffuse nonspecific colitis pattern ED Treatment:Patient was given 3 L LR, IV potassium chloride, Flagyl, Tylenol IV, magnesium in ED Review of Systems Review of Systems Narrative Review of Systems: ROS: -CONSTITUTIONAL: Denies weight loss, fever and chills. Positive for poor appetite and dizziness. -HEENT: Denies changes in vision and hearing. -RESPIRATORY: Denies SOB and cough. -CV: Denies palpitations and Chest Pain. -GI: Denies abdominal pain, positive for nausea vomiting and diarrhea. -: Denies dysuria and urinary frequency. -MSK: Denies myalgia and joint pain. -SKIN: Denies rash and pruritus. -NEUROLOGICAL: Denies headache and positive for syncope. -PSYCHIATRIC: Denies recent changes in mood. Denies anxiety and depression. Past Medical History Past Medical History Comments PMH COMMENT: PMH: Positive for hypertension managed with amlodipine 10 mg, as well as anxiety, for which she takes paroxetine and Xanax as needed, breast cancer currently on neoadjuvant chemotherapy, reported that her bilateral mastectomy is scheduled for next month (patient receiving cancer treatment at [facility]) PSHx: 2 sections, arthroscopic knee surgery, cholecystectomy and breast augmentation Allergies: Avocado, coconut, walnut Social history: -Smoking: Denies -Alcohol Use: Denies -Illicit Drug Use: Denies -Occupation: Teacher -Martial Status: , gymnastic coach, 2 kids Family History: Denies any pertinent family history Exam Vital Signs Temp Pulse Resp BP Pulse Ox O2 Del Method 97.3 F 112 H 20 95/50 L 100 Room Air 12/10/24 20:43 12/10/24 21:05 12/10/24 21:05 12/10/24 20:40 12/10/24 20:40 12/10/24 19:55 Narrative Exam Physical Exam General: Awake and in no acute distress. Conversational and non-toxic appearing. HEENT: Normocephalic, atraumatic, mucous membranes dry. Heart: Sinus tachycardia, no murmurs. Lungs: Clear to auscultation with no wheezing or crackles. Abdomen: Soft, nondistended, nontender, positive bowel sounds. ?No guarding or rebound tenderness. Neurologic: Alert and oriented x3, no gross neurological deficit, and patient able to move all 4 extremities. Extremities: No edema. Skin: No rash or ecchymoses. Port-A-Cath noted on chest. Results: Labs 12/10/24 20:10 12/10/24 20:10 Labs: Short CBC 12/10/24 Range/Units 20:10 WBC 45.7 H* D (3.6-11.0) Thou/mm3 Hgb 5.7 L* D (12.0-16.0) g/dL Hct 16.1 L* (36.0-46.0) % Plt Count 227 (140-440) Thou/mm3 BMP 12/10/24 20:10 Sodium 140 Potassium 2.8 L D Chloride 111 H Carbon Dioxide 16.9 L BUN 20 Creatinine 0.8 Glucose 164 H Calcium 8.2 L Cardiac Enzymes 12/10/24 Range/Units 20:10 Troponin I < 0.020 (0.0-0.045) ng/mL Liver Function 12/10/24 Range/Units 20:10 Total Bilirubin 0.2 L (0.3-1.2) mg/dL AST 28 (0-34) U/L ALT 71 H (10-49) U/L Alkaline Phosphatase 111 D (46-116) U/L Albumin 2.9 L D (3.5-5.0) gm/dL Quality Measures Quality Measures none Medications Home Medications and Allergies Home Medications ?Medication ?Instructions ?Recorded ?Confirmed ?Type amlodipine 5 mg tablet 5 mg PO QDAY 10/25/19 10/25/19 History norethindrone (contraceptive) 0.35 0.35 mg PO QDAY 10/25/19 10/25/19 History mg tablet (Kalani) paroxetine HCl 10 mg tablet (Paxil) 10 mg PO QDAY 10/25/19 10/25/19 History Allergies Allergy/AdvReac Type Severity Reaction Status Date / Time avocado Allergy Severe Anaphylaxis Verified 10/25/19 18:03 coconut Allergy Severe Anaphylaxis Verified 10/25/19 18:03 walnut Allergy Severe Anaphylaxis Verified 10/25/19 18:03 Visit Medications Acetaminophen (Acetaminophen 325 Mg Tablet) 650 mg PO Q6H PRN PRN Reason: Fever >101.5 Stop: 01/09/25 21:34 Alprazolam (Alprazolam 0.25 Mg Tablet) 1 mg PO BID PRN PRN Reason: ANXIETY Stop: 12/16/24 08:59 Acetaminophen (Ofirmev Inj) 1,000 mg in 100 mls @ 250 mls/hr IV Q6HR DWAYNE Stop: 12/11/24 12:23 Last Infusion: 12/10/24 22:15 Dose: Infused Metronidazole (Flagyl 500 Mg Iv) 500 mg in 100 mls @ 200 mls/hr IV Q8HR DWAYNE Stop: 12/17/24 21:59 Last Admin: 12/10/24 21:49 Dose: 200 mls/hr Potassium Chloride (Kcl Ivpb) 10 meq in 100 mls @ 100 mls/hr IV Q1H [facility] Stop: 12/11/24 01:18 Last Admin: 12/10/24 21:44 Dose: 100 mls/hr Lactated Ringer's (Lactated Ringers) 1,000 mls @ 125 mls/hr IV .Q8H [facility] Stop: 01/09/25 21:44 Last Admin: 12/10/24 22:07 Dose: 125 mls/hr Ciprofloxacin/Dextrose (Cipro Ivpb) 400 mg in 200 mls @ 200 mls/hr IV Q12HR [facility] Stop: 12/18/24 08:59 Magnesium Sulfate (Magnesium Sulfate Ivpb) 2 gm in 50 mls @ 25 mls/hr IV X1 ONE Stop: 12/10/24 23:56 Last Admin: 12/10/24 22:07 Dose: 25 mls/hr Discontinued Medications Lactated Ringer's (Lactated Ringers) 1,000 mls @ 999 mls/hr IV .Q1H1M ONE Stop: 12/10/24 20:51 Last Infusion: 12/10/24 21:27 Dose: Infused Lactated Ringer's (Lactated Ringers) 1,000 mls @ 999 mls/hr IV .Q1H1M ONE Stop: 12/10/24 21:01 Last Infusion: 12/10/24 21:27 Dose: Infused Lactated Ringer's (Lactated Ringers) 1,000 mls @ 999 mls/hr IV .Q1H1M ONE Stop: 12/10/24 21:48 Last Admin: 12/10/24 21:43 Dose: 999 mls/hr Ciprofloxacin/Dextrose (Cipro Ivpb) 400 mg in 200 mls @ 200 mls/hr IV X1 ONE Stop: 12/10/24 21:47 Last Admin: 12/10/24 21:43 Dose: 200 mls/hr Metronidazole (Flagyl 500 Mg Iv) 500 mg in 100 mls @ 200 mls/hr IV Q8HR [facility] Stop: 12/17/24 21:38 Last Admin: 12/10/24 22:17 Dose: Not Given Potassium Chloride (Kcl Ivpb) 10 meq in 100 mls @ 100 mls/hr IV Q1H [facility] Stop: 12/11/24 01:54 Last Admin: 12/10/24 22:17 Dose: Not Given Assessment & Plan Plan Assessment and Plan: Summary: Ms. Burnette is a 49-year-old female with past medical history of hypertension, anxiety and recently diagnosed breast cancer (October 2024) currently undergoing neoadjuvant chemotherapy with her first session administered on November 29 at [facility] who presented to [facility] emergency department on 12/10/2024 with a chief complaint of bloody diarrhea. Patient admitted to hospital for further workup for symptomatic anemia secondary to blood loss and GI bleed workup. #GI bleed, upper versus lower #Diarrhea, bright red blood in stool #Bloody emesis #Symptomatic normocytic normochromic anemia secondary to blood loss #Colitis #Leukocytosis #Syncope Patient presented with chief complaint of bloody diarrhea, reported blood in stool and did report episode of bloody emesis, patient had CT abdomen pelvis done during ED visit on 12/09, CT abdomen pelvis shows colitis nonspecific pattern. Patient reports continued diarrhea, does report passing out earlier today after feeling dizzy. Patient currently receiving chemotherapy for recently diagnosed breast cancer, follow [facility] outpatient. Patient was significantly hypotensive and tachycardic on presentation, had significant anemia with hemoglobin 5.7. Patient did have a elevated lactate, suspicion of chemotherapy induced colitis patient did have significantly elevated WBC count and lactate. Plan: -Transfused 3 units PRBC, follow-up posttransfusion H&H -Patient received about 3 L LR bolus in ED, was started on maintenance fluid LR -GI consulted for further evaluation -IV ciprofloxacin and Flagyl (12/10- -follow stool studies -Follow-up blood culture #Electrolyte abnormalities #Hypokalemia Potassium 2.8 on presentation Plan: -Replete electrolytes as needed #Transaminitis ALT 71 on presentation Plan: -Follow CMP in a.m. #Hypertension #Anxiety Hold antihypertensives, blood pressure soft Xanax as needed for anxiety #Breast cancer, currently on neoadjuvant chemotherapy Patient was diagnosed with breast cancer in October 2024, currently undergoing neoadjuvant chemotherapy, first session was November 29 reports diarrhea since chemo. Reports is scheduled for surgery in December, patient reports following with [facility]. DVT prophylaxis: SCD GI prophylaxis: Not indicated Diet: N.p.o. Lines: Peripheral IV Code status: Full code Case discussed with Attending Dr. Seo. Maine Newsome PGY1 Disclaimer: This note was dictated by speech recognition. Minor errors in subway operator may be present due to voice recognition software. Attending Provider Attestation/Addendum Pt was evaluated and plan formulated together with the housestaff team. I have reviewed the residents note above and agree with most of its content. Please refer to the residents note for additional details.
[2024-12-10 23:08] LABS: LDH (Lactate Dehydrogenase) 180 U/L (120-246)
[2024-12-10 23:39] LABS: Reflex Lactate? Y
[2024-12-10] MEDS: ALPRazoLAM 0.25 MG TABLET 1 MG PO (23:42)
[2024-12-11] VITALS (56 sets, daily range): BP systolic 94–137; BP diastolic 57–94; PULSE 92–132; RESP 0–98; TEMP 36.1–37.1; O2SAT 97–100; BMI 25.7
[2024-12-11 00:08] LABS: Lactic Acid, 3 HR 1.4 mMol/L (0.4-2.0)
[2024-12-11] MEDS: POTASSIUM CHL 10 mEq IVPB 10 MEQ/100 ML BAG 100 MEQ IV (00:45)
[2024-12-11] MEDS: CIPROFLOXACIN/D5w 400 MG IVPB 400 MG/200 ML BAG 200 MG IV ×3 (02:11→21:57)
[2024-12-11 04:52] LABS: Basophils # (Auto) 0.1 Thou/mm3 (0.0-0.2); Basophils % (Auto) 0 % (0-2.5); Eosinophils % (Auto) 0 % (0-10); Hematocrit 22.6 % (36.0-46.0); Immature Granulocytes % (Auto) 2 % (0-0); Immature Granulocytes Auto 0.56 Thou/mm3 (0.00-0.00); Lymphocytes # (Auto) 2.6 Thou/mm3 (1.0-4.8); Lymphocytes % (Auto) 9 % (10-50); Mean Corpuscular Hemoglobin 29.6 pg (25.0-35.0); Mean Corpuscular Volume 85 fL (80-100); Monocytes # (Auto) 0.8 Thou/mm3 (0.0-0.8); Monocytes % (Auto) 3 % (0-12); Neutrophils # (Auto) 25.8 Thou/mm3 (1.8-7.7); Neutrophils % (Auto) 86 % (37-80); Nucleated Red Blood Cell # 0.03 Thou/mm3 (0.00-0.00); Nucleated Red Blood Cell % 0 /100 WBC (0); Platelet Count 112 Thou/mm3 (140-440); RDW Standard Deviation 40.6 fL (36.4-46.3); Red Blood Count 2.67 Miln/mm3 (4.00-5.20)
[2024-12-11 04:54] LABS: Hemoglobin 7.9 g/dL (12.0-16.0); White Blood Count 29.8 Thou/mm3 (3.6-11.0)
[2024-12-11 05:11] LABS: Anion Gap 6 (7-16); BUN/Creatinine Ratio 20 Ratio (12-20); Blood Urea Nitrogen 12 mg/dL (9-23); Carbon Dioxide 22.7 mMol/L (20.0-31.0); Chloride 114 mMol/L (98-107); Creatinine (Component) 0.6 mg/dL (0.6-1.3); Estimated Creatinine Clearance 107.9 mL/min (>60); Glucose 118 mg/dL (74-106); Osmolality,Calculated 285 (275-295); Potassium 3.8 mMol/L (3.4-5.1); Sodium 143 mMol/L (136-145); eGFR > 60 See Note
[2024-12-11] MEDS: RINGERS LACTATED 1000 ML 1,000 ML 125 ML IV ×2 (05:48→14:26)
[2024-12-11 06:07] LABS: Collection Type, Urine Clean Catch
[2024-12-11 06:18] LABS: Bacteria,Urine Rare; Bilirubin,Urine Negative (Negative); Blood,Urine 3+ (Negative); Clarity,Urine Turbid (Clear/Hazy); Color,Urine Brown (Lt Yel-Yel); Glucose, Urine Negative (Negative); Ketones,Urine Negative (Negative); Leukocyte Esterase,Urine Positive (Negative); Nitrite,Urine Negative (Negative); PH,Urine 5.5 (5.0-7.0); Protein,Urine 1+ (Neg - Trace); RBC,Urine 58 /hpf (0-3); Specific Gravity,Urine 1.011 (1.001-1.035); Squamous Epithelial Cell,Urine < 1 /hpf (0-5); Urobilinogen,Urine Negative mg/dL (0.0-1.0); WBC,Urine 12 /hpf (0-5)
[2024-12-11 06:22] LABS: Amphetamine/Methamp Scrn,U Negative (Negative); Barbiturate Screen,Urine Negative (Negative); Benzodiazepines Screen,Urine Positive (Negative); Benzoylecgonine Screen, Ur Negative (Negative); Fentanyl Screen,Urine Positive (Negative); Opiate Screen,Urine Negative (Negative); THC Screen,Urine Negative (Negative)
--- NOTE | 2024-12-11 08:42 | PC.NURSE ---
called back to ED RN for report, RN unavailable due to in another situation at this time. waiting for call back, call back message given to tech who answered phone.
--- NOTE | 2024-12-11 10:07 | PC.NURSE ---
Brief changed soiled of dark bloody, watery stool, rectal tube in place, clean dry brief applied and patient placed in POC. Call light within reach.
[2024-12-11] MEDS: metroNIDAZOLE/NS 500 MG IVPB 500 MG/100 ML BAG 200 MG IV ×3 (10:27→21:56)
--- NOTE | 2024-12-11 10:27 | PC.NURSE ---
Called back to ED RN for report, RN notified to call this RN back for report
--- NOTE | 2024-12-11 10:54 | ESPR_ITS ---
<Statement entered by Nola Fournier MD - 12/11/24 15:45> I discussed with and supervised my co-resident involved in the care of this patient. I agree with the assessment and plan as documented above. Patient seen and examined at bedside. No nausea or vomiting. She is feeling better after the blood transfusions. Hemoglobin improved to 8. Leukocytosis improved from [address] imaging showed colitis so we will continue IV antibiotics cipro and flagyl. GI Dr. Bay consulted with plans for EGD and possible colonoscopy. Nola Fournier MD PGY-3 Documentation for date of: 12/11/24 Subjective Subjective Interval history: Patient was seen at bedside this morning. No overnight events. Patient states that ever since she was placed on chemotherapy on her first section she had diarrhea, but it was not bloody at this time was not as many episodes during the day. Patient stated that since Tuesday it became bloody and she has been having around 20 bowel movements a day. Today she denies any abdominal pain or any episodes of vomiting today. Spoke with GI specialist who stated that we will do EGD today therefore patient will remain n.p.o. for now. He also stated that patient to continue on Cipro and Flagyl at this time. Still waiting for C. difficile and stool cultures. Exam Vital Signs Temp Pulse Resp BP Pulse Ox O2 Del Method 98.8 F 101 H 15 110/57 L 100 Room Air 12/11/24 08:32 12/11/24 08:32 12/11/24 08:32 12/11/24 08:32 12/11/24 08:32 12/11/24 08:32 Narrative Exam General: A/O x3, no acute distress, well-nourished, well-developed Eyes: PERRL, EOMI. Anicteric, vision grossly intact. Ears: No ear pain, no ear discharge, Hearing grossly intact. Nose: No nasal discharge. Mouth/Throat: Moist mucous membranes, no redness, no lesions. Neck: Neck supple, non-tender, no cervical lymphadenopathy. Lungs: Clear KIM to auscultation and percussion, No accessory muscle use. Cardio: Normal S1/S2, regular rhythm, no murmurs, no JVD or carotid bruits. Abdomen: Soft, non-tender, no palpable masses, peristalsis present, no guarding or rebound. Extremities: Symmetrical, no significant deformities, no peripheral edema , non-tender, peripheral pulses presents. Skin: No rashes, no lesions, warm to touch. Neuro: No focal neurological deficits. motor and sensory intact. Psych: Cooperative, appropriate mood and effect. Objective Labs 12/12/24 05:13 12/12/24 07:24 Labs: Laboratory Results - last 24 hr 12/10/24 12/10/24 12/11/24 20:10 23:58 04:41 WBC 45.7 H* D 29.8 H D RBC 1.84 L* 2.67 L Hgb 5.7 L* D 7.9 L D Hct 16.1 L* 22.6 L MCV 88 85 MCH 31.0 29.6 MCHC 35.4 35.0 RDW Std Deviation 39.8 40.6 Plt Count 227 112 L D Neut % (Auto) 83 H 86 H Lymph % (Auto) 11 9 L [place] % (Auto) 3 3 Eos % (Auto) 0 0 Baso % (Auto) 0 0 Neut # (Auto) 37.8 H 25.8 H Lymph # (Auto) 4.8 2.6 [place] # (Auto) 1.5 H 0.8 Eos # (Auto) 0.0 0.0 Baso # (Auto) 0.1 0.1 Immature Gran # (Auto) 1.50 H 0.56 H Absolute Nucleated RBC 0.05 H 0.03 H Immature Gran % 3 H 2 H Nucleated RBC % 0 0 Smear Path Review Sent to Pathologist PT 11.6 INR 1.1 APTT 21.7 L Sodium 140 143 Potassium 2.8 L D 3.8 D Chloride 111 H 114 H Carbon Dioxide 16.9 L 22.7 Anion Gap 12 6 L BUN 20 12 Creatinine 0.8 0.6 Estim Creat Clear Calc 80.9 107.9 eGFR > 60 > 60 BUN/Creatinine Ratio 25 H 20 Glucose 164 H 118 H Calculated Osmolality 286 285 Lactic Acid 4.1 H* 1.4 Calcium 8.2 L 8.0 L Corrected Calcium 9.1 Magnesium 1.6 Total Bilirubin 0.2 L AST 28 ALT 71 H Alkaline Phosphatase 111 D Lactate Dehydrogenase 180 Troponin I < 0.020 B-Natriuretic Peptide < 20 Total Protein 4.4 L Albumin 2.9 L D Globulin 1.5 L Albumin/Globulin Ratio 1.9 Lipase 48 Procalcitonin 0.11 Ur Collection Type Urine Color Urine Clarity Urine pH Ur Specific [place] Urine Protein Urine Glucose (UA) Urine Ketones Urine Blood Urine Nitrite Urine Bilirubin Urine Urobilinogen (Auto) Ur Leukocyte Esterase Urine RBC Urine WBC Ur Squamous Epith Cells Urine Bacteria Urine Opiates Screen Urine Fentanyl Screen Ur Barbiturates Screen U Amphetamin/Meth Scrn U Benzodiazepines Scrn U Cocaine Metab Screen U Marijuana (THC) Screen Blood Type A Negative Antibody Screen NEGATIVE Crossmatch See Detail Blood Bank Wristband ID Yes 12/11/24 06:01 WBC RBC Hgb Hct MCV MCH MCHC RDW Std Deviation Plt Count Neut % (Auto) Lymph % (Auto) [place] % (Auto) Eos % (Auto) Baso % (Auto) Neut # (Auto) Lymph # (Auto) [place] # (Auto) Eos # (Auto) Baso # (Auto) Immature Gran # (Auto) Absolute Nucleated RBC Immature Gran % Nucleated RBC % Smear Path Review PT INR APTT Sodium Potassium Chloride Carbon Dioxide Anion Gap BUN Creatinine Estim Creat Clear Calc eGFR BUN/Creatinine Ratio Glucose Calculated Osmolality Lactic Acid Calcium Corrected Calcium Magnesium Total Bilirubin AST ALT Alkaline Phosphatase Lactate Dehydrogenase Troponin I B-Natriuretic Peptide Total Protein Albumin Globulin Albumin/Globulin Ratio Lipase Procalcitonin Ur Collection Type Clean Catch Urine Color Brown A Urine Clarity Turbid A Urine pH 5.5 Ur Specific [place] 1.011 Urine Protein 1+ A Urine Glucose (UA) Negative Urine Ketones Negative Urine Blood 3+ A Urine Nitrite Negative Urine Bilirubin Negative Urine Urobilinogen (Auto) Negative Ur Leukocyte Esterase Positive Urine RBC 58 H Urine WBC 12 H Ur Squamous Epith Cells < 1 Urine Bacteria Rare Urine Opiates Screen Negative Urine Fentanyl Screen Positive A Ur Barbiturates Screen Negative U Amphetamin/Meth Scrn Negative U Benzodiazepines Scrn Positive A U Cocaine Metab Screen Negative U Marijuana (THC) Screen Negative Blood Type Antibody Screen Crossmatch Blood Bank Wristband ID Quality Measures Quality Measures none Assessment & Plan Assessment Current Active Medications: Generic Name Dose Route Start Last Admin Trade Name Freq PRN Reason Stop Dose Admin Acetaminophen 650 mg 12/10/24 21:35 Acetaminophen 325 Mg Tablet PO 01/09/25 21:34 Q6H PRN Fever >101.5 Alprazolam 1 mg 12/10/24 21:38 12/10/24 23:42 Alprazolam 0.25 Mg Tablet PO 12/16/24 08:59 1 mg BID PRN Administration ANXIETY Metronidazole 500 mg in 100 mls @ 200 mls/hr 12/10/24 22:00 12/11/24 10:27 Flagyl 500 Mg Iv IV 12/17/24 21:59 200 mls/hr Q8HR DWAYNE Administration Lactated Ringer's 1,000 mls @ 125 mls/hr 12/10/24 21:45 12/11/24 05:48 Lactated Ringers IV 01/09/25 21:44 125 mls/hr .Q8H DWAYNE Administration Ciprofloxacin/Dextrose 400 mg in 200 mls @ 200 mls/hr 12/11/24 09:00 Cipro Ivpb IV 12/18/24 08:59 Q12HR DWAYNE Plan 49-year-old female with past medical history of breast cancer status post neoadjuvant chemotherapy (first section on November 29, 2024), hypertension, and anxiety was admitted to the hospital on 12/10/2024 due to a syncopal episode likely in the setting of acute blood loss anemia secondary to GI bleed with hematochezia and hematemesis. #Syncopal episodes #Acute blood loss anemia #GI bleed #Hematochezia #Hematemesis #Leukocytosis #Breast cancer, on chemotherapy (first chemo on 11/29/2024) ? Patient came in with complaints of bloody diarrhea as well as his bloody emesis since Tuesday. Has been having about 20 bowel movements per day ?Patient got her first dose of chemotherapy on November 29, 2024 and then experienced some diarrhea, but these were nonbloody initially. ?CT abdomen/pelvis showed colitis nonspecific pattern ? Patient got 3 units of PRBC and 3 L of LR in the ED. ? Hemoglobin 7.9 today after 3 units of PRBC ? WBC 29.8 today Plan: ? EGD most likely today ? Continue Flagyl and ciprofloxacin [12/10/2024-] ?Continue IV fluids ? Stool cultures and C. difficile pending ? Blood cultures pending - rectal tube in place ? GI consulted, appreciate recommendations ? Continue to monitor #Electrolyte imbalance #Hypokalemia, resolved #Hx of hypertension #Hx of anxiety ? Continue Xanax as needed for anxiety ? Patient's blood pressure has been on the softer end therefore we will hold all antihypertensive medication for now Disposition: Patient admitted to telemetry, pending EGD, stool cultures, and C dif PCR. Diet: NPO GI prophylaxis: not indicated DVT prophylaxis: SCDs Code:Full Case disclosed with Attending Dr. Garcia and My senior Dr. Fournier PGY3. Joe Valentine PGY1 Attending Provider Attestation/Addendum I reviewed labs, imaging, EKG, home medications and prior available records. Face to face evaluation was performed by me. I have personally examined the patient and discussed assessment and plan with the IM team. I reviewed the resident note and agree with the plan with exceptions as below. Acute diarrhea Acute blood loss anemia GI bleed Breast cancer on chemotherapy Status post 3 PRBC transfusion. Monitor H&H posttransfusion: Improved and stable Continue ciprofloxacin/Flagyl Send stool studies Consulted GI: Plan for EGD Continue IV fluids Touch base with her oncologist for the chemotherapy recommendations
--- NOTE | 2024-12-11 12:32 | PC.NURSE ---
Pt. requesting clear liquid diet, Dr. Champion states no pt. will have EGD later today. Ice chips are okay for now. Pt. aware and ok with place.
--- NOTE | 2024-12-11 14:45 | PC.NURSE ---
Wound RN Poonam aware of suspicious spot to right sacrum, looks like healing blister and blanches. Pt. reports pain/discomfort there.
--- NOTE | 2024-12-11 14:48 | PC.NURSE ---
Per pharmacist Leann okay to give flagyl dose now at 1448 even thought first dose finished at 1030.
[2024-12-11 14:51] LABS: Stool for WBCs Negative (Negative)
[2024-12-11 15:27] LABS: Clostridium Difficile PCR Negative (Negative)
--- NOTE | 2024-12-11 15:44 | PC.SS ---
Patient Jaelyn Zamarripa is a 49 Year old female admitted for Colitis. Patient reports she lives at home with her , Philippe Zamarripa who she reports is her surrogate decision maker [phone]. Patient reports she does not utilize any source of DME. Patient reports her PCP is Hilda Meza. Choice of pharmacy is [facility]. Patient is able to complete ADL's. Patient also sees an oncologist. At time of discharge patient will return home. Family will provide transportation. Next of Kin, , Dallin Paez [phone] Discharge plan: Home
--- NOTE | 2024-12-11 18:59 | PD.IMCONS ---
HPI Data of Consult Requesting Physician: Tony Seo MD Primary Care Provider: Hilda Meza MD Consult Narrative Reason for consult: Syncope bloody diarrhea hypotension hematemesis History of present illness: 49 years old female who presented to the hospital with syncopal episode with a large bloody bowel movement She was seen earlier and was sent home I believe yesterday for bleeding per rectum sent home on ciprofloxacin to be seen as an outpatient She comes back with a syncopal episode Patient also has diarrhea which is bloody Her presenting white count was 45.7 with a hemoglobin about a 5.7 and 16.9 and a platelet count of 112,000 She got first dose of chemotherapy on 29 November She has a breast carcinoma undergoing neoadjuvant chemotherapy at the moment to be followed by bilateral mastectomy and her oncologist is Dr. Hogan in [place] cc:: cc: Tony Seo MD Review of Systems Review of Systems Systems Reviewed: All systems reviewed, normal except as documented Past Medical History Surgical History OTHER SURGICAL HX: Essential hypertension Meds Home Medications and Allergies Home Medications ?Medication ?Instructions ?Recorded ?Confirmed ?Type amlodipine 5 mg tablet 5 mg PO QDAY 10/25/19 12/11/24 History norethindrone (contraceptive) 0.35 0.35 mg PO QDAY 10/25/19 12/11/24 History mg tablet (Kalani) paroxetine HCl 10 mg tablet (Paxil) 10 mg PO QDAY 10/25/19 12/11/24 History Allergies Allergy/AdvReac Type Severity Reaction Status Date / Time avocado Allergy Severe Anaphylaxis Verified 10/25/19 18:03 coconut Allergy Severe Anaphylaxis Verified 10/25/19 18:03 walnut Allergy Severe Anaphylaxis Verified 10/25/19 18:03 Exam Vital Signs Temp Pulse Resp BP Pulse Ox O2 Del Method 97.8 F 101 H 20 117/57 L 99 Room Air 12/11/24 16:00 12/11/24 16:00 12/11/24 16:00 12/11/24 16:00 12/11/24 16:00 12/11/24 16:00 Constitutional Comments: Alert oriented Routine Respiratory Exam Comments: Normal to auscultation Routine Abdominal Exam Comments: Soft nontender Results Labs 12/11/24 04:41 12/11/24 04:41 Labs: Short CBC 12/10/24 12/11/24 Range/Units 20:10 04:41 WBC 45.7 H* D 29.8 H D (3.6-11.0) Thou/mm3 Hgb 5.7 L* D 7.9 L D (12.0-16.0) g/dL Hct 16.1 L* 22.6 L (36.0-46.0) % Plt Count 227 112 L D (140-440) Thou/mm3 BMP 12/10/24 12/11/24 20:10 04:41 Sodium 140 143 Potassium 2.8 L D 3.8 D Chloride 111 H 114 H Carbon Dioxide 16.9 L 22.7 BUN 20 12 Creatinine 0.8 0.6 Glucose 164 H 118 H Calcium 8.2 L 8.0 L Cardiac Enzymes 12/10/24 Range/Units 20:10 Troponin I < 0.020 (0.0-0.045) ng/mL Liver Function 12/10/24 Range/Units 20:10 Total Bilirubin 0.2 L (0.3-1.2) mg/dL AST 28 (0-34) U/L ALT 71 H (10-49) U/L Alkaline Phosphatase 111 D (46-116) U/L Albumin 2.9 L D (3.5-5.0) gm/dL Urine 12/11/24 Range/Units 06:01 Urine Color Brown A (Lt Yel-Yel) Urine Clarity Turbid A (Clear/Hazy) Urine pH 5.5 (5.0-7.0) Ur Specific [place] 1.011 (1.001-1.035) Urine Protein 1+ A (Neg - Trace) Urine Glucose (UA) Negative (Negative) Assessment and Plan Additional Assessment & Plan Additional Plan: # Hematemesis # Bloody diarrhea # Abnormal CT scan of the abdomen pelvis showing pancolitis Differential diagnosis include Infectious enterocolitis versus C. difficile enterocolitis Breast carcinoma undergoing roseanna adjuvant chemotherapy last dose November 29 Plan stool culture and sensitivity stool for C. difficile by PCR Stool for fecal calprotectin ANCA antibody Schedule fiberoptic esophagogastroduodenoscopy with possible therapeutic intervention possible biopsy under intravenous moderate sedation for evaluation of hematemesis I will wait for the stool culture and sensitivity as well as C. difficile before scheduling a colonoscopy for pancolitis Thank you once again for the opportunity to participate in the care of this patient
[2024-12-11 19:43] LABS: C-Reactive Protein < 0.4 mg/dL (0.0-0.9)
--- NOTE | 2024-12-11 21:55 | EVENTNT_ITS ---
Documentation for date of: 12/11/24 Event Note Event Note: The patient is a 49-year-old female with a history of breast cancer undergoing neoadjuvant chemotherapy. She initially presented to the ER with syncope and was found to have severe anemia secondary to ongoing gastrointestinal bleeding. She reported episodes of fresh blood in vomitus and diarrhea, along with dizziness and weakness. Imaging revealed diffuse colitis, and EGD findings demonstrated esophagitis, a Rei-en-Y gastrojejunostomy, and fresh blood in the distal esophagus with an obscured active bleeding site. Source of bleeding is anastomotic site of the Rei-en-Y gastrojejunostomy. Endoscopic intervention included: * Injection of epinephrine (1:10,000, 0.3 mg) at the anastomotic site * Bipolar gold heater probe for hemostasis * Placement of 7 endoclips * Hemospray application to slow bleeding Despite these measures, the patient continues to experience ongoing oozing from the anastomotic site, necessitating transfer for further evaluation and potential surgical intervention.
[2024-12-11] MEDS: BALSAM PERU/CASTOR OIL (Venelex) 60 GM TUBE TOP (21:57)
--- NOTE | 2024-12-11 22:53 | PD.RESCONSUL ---
HPI Data of Consult Requesting Physician: Tony Seo MD Admitting Provider: Tony Seo MD Attending Provider: Tony Seo MD Primary Care Provider: Hilda Meza MD Consult Narrative History of present illness: Patient is a 49-year-old female with past medical history of hypertension, gastric bypass in 2009, anxiety and recently diagnosed breast cancer (October 2024) currently undergoing neoadjuvant chemotherapy with her first session administered on November 29 at [facility] who presented to [facility] emergency department on 12/10/2024 with a chief complaint of diarrhea. Today patient had EGD done by Dr. Bay and he observed that patient was still actively bleeding from gastric bypass sites. He has requested patient be upgraded to ICU for close monitoring, 2 units of PRBCs, and has started transfer process. Dr. Bay has started speaking with [facility] surgeon Dr. Garcia for transfer. Pending callback from [facility]. Patient upgraded to ICU for closer monitoring given acuity and high risk of deterioration. Patient currently denying any lightheadedness, dizziness, nausea, chest pain, shortness of breath, or abdominal pain. Patient states she had surgery for bypass at [facility]. cc:: cc: Tony Seo MD Exam Vital Signs Temp Pulse Resp BP Pulse Ox O2 Del Method O2 Flow Rate 97.6 F 109 H 16 121/79 100 Nasal Cannula 2 12/11/24 22:24 12/11/24 22:24 12/11/24 22:24 12/11/24 22:24 12/11/24 22:24 12/11/24 21:25 12/11/24 22:24 Narrative Exam General: A/O x3, no acute distress, well-nourished, well-developed Lungs: Chest clear to auscultation bilaterally, no wheezing or rhonchi. Cardio: Regular rate and rhythm, no murmurs, rubs, or gallops. Abdomen: Soft, non-tender, no palpable masses, active bowel sounds. Extremities: No edema noted in lower extremities. Skin: No rashes, no lesions, warm to touch. Psych: Cooperative, appropriate mood and effect. Results Labs 12/11/24 04:41 12/11/24 04:41 Labs: Short CBC 12/11/24 Range/Units 04:41 WBC 29.8 H D (3.6-11.0) Thou/mm3 Hgb 7.9 L D (12.0-16.0) g/dL Hct 22.6 L (36.0-46.0) % Plt Count 112 L D (140-440) Thou/mm3 BMP 12/11/24 04:41 Sodium 143 Potassium 3.8 D Chloride 114 H Carbon Dioxide 22.7 BUN 12 Creatinine 0.6 Glucose 118 H Calcium 8.0 L Urine 12/11/24 Range/Units 06:01 Urine Color Brown A (Lt Yel-Yel) Urine Clarity Turbid A (Clear/Hazy) Urine pH 5.5 (5.0-7.0) Ur Specific [place] 1.011 (1.001-1.035) Urine Protein 1+ A (Neg - Trace) Urine Glucose (UA) Negative (Negative) Quality Measures Quality Measures none Medications Home Medications and Allergies Home Medications ?Medication ?Instructions ?Recorded ?Confirmed ?Type amlodipine 5 mg tablet 5 mg PO QDAY 10/25/19 12/11/24 History norethindrone (contraceptive) 0.35 0.35 mg PO QDAY 10/25/19 12/11/24 History mg tablet (Kalani) paroxetine HCl 10 mg tablet (Paxil) 10 mg PO QDAY 10/25/19 12/11/24 History acetaminophen 650 mg 650 mg PO Q8H PRN pain 12/11/24 12/11/24 History tablet,extended release diphenoxylate-atropine 2.5 1 tab PO QID PRN diarrhea 12/11/24 12/11/24 History mg-0.025 mg tablet (Lomotil) prochlorperazine maleate 10 mg 10 mg PO Q8H PRN nausea and 12/11/24 12/11/24 History tablet (Compazine) vomiting Allergies Allergy/AdvReac Type Severity Reaction Status Date / Time avocado Allergy Severe Anaphylaxis Verified 10/25/19 18:03 coconut Allergy Severe Anaphylaxis Verified 10/25/19 18:03 walnut Allergy Severe Anaphylaxis Verified 10/25/19 18:03 Visit Medications Acetaminophen (Acetaminophen 325 Mg Tablet) 650 mg PO Q6H PRN PRN Reason: Fever >101.5 Stop: 01/09/25 21:34 Alprazolam (Alprazolam 0.25 Mg Tablet) 1 mg PO BID PRN PRN Reason: ANXIETY Stop: 12/16/24 08:59 Last Admin: 12/10/24 23:42 Dose: 1 mg Balsam Cholo/Denver Oil (Balsam Cholo/Denver Oil (Venelex) 60 Gm Tube) 0 gm TOP BID DWAYNE Stop: 01/10/25 20:59 Last Admin: 12/11/24 21:57 Dose: 1 applicatio Metronidazole (Flagyl 500 Mg Iv) 500 mg in 100 mls @ 200 mls/hr IV Q8HR DWAYNE Stop: 12/17/24 21:59 Last Admin: 12/11/24 21:56 Dose: 200 mls/hr Lactated Ringer's (Lactated Ringers) 1,000 mls @ 125 mls/hr IV .Q8H [facility] Stop: 01/09/25 21:44 Last Admin: 12/11/24 14:26 Dose: 125 mls/hr Ciprofloxacin/Dextrose (Cipro Ivpb) 400 mg in 200 mls @ 200 mls/hr IV Q12HR DWAYNE Stop: 12/18/24 08:59 Last Admin: 12/11/24 21:57 Dose: 200 mls/hr Discontinued Medications Diphenhydramine HCl (Diphenhydramine Inj 50 Mg/Ml Vial) 25 mg IV [id number] PRN PRN Reason: MODERATE SEDATION Stop: 12/11/24 21:06 Fentanyl Citrate (Fentanyl Cit Inj 50 Mcg/Ml Amp 2ml) 50 mcg IV Q2M PRN PRN Reason: MODERATE SEDATION Stop: 12/11/24 21:06 Lactated Ringer's (Lactated Ringers) 1,000 mls @ 999 mls/hr IV .Q1H1M ONE Stop: 12/10/24 20:51 Last Infusion: 12/10/24 21:27 Dose: Infused Lactated Ringer's (Lactated Ringers) 1,000 mls @ 999 mls/hr IV .Q1H1M ONE Stop: 12/10/24 21:01 Last Infusion: 12/10/24 21:27 Dose: Infused Acetaminophen (Ofirmev Inj) 1,000 mg in 100 mls @ 250 mls/hr IV Q6HR [facility] Stop: 12/11/24 12:23 Last Admin: 12/11/24 00:08 Dose: Not Given Lactated Ringer's (Lactated Ringers) 1,000 mls @ 999 mls/hr IV .Q1H1M ONE Stop: 12/10/24 21:48 Last Infusion: 12/10/24 22:50 Dose: Infused Ciprofloxacin/Dextrose (Cipro Ivpb) 400 mg in 200 mls @ 200 mls/hr IV X1 ONE Stop: 12/10/24 21:47 Last Infusion: 12/11/24 03:30 Dose: Infused Potassium Chloride (Kcl Ivpb) 10 meq in 100 mls @ 100 mls/hr IV Q1H DWAYNE Stop: 12/11/24 01:18 Last Infusion: 12/11/24 01:50 Dose: Infused Metronidazole (Flagyl 500 Mg Iv) 500 mg in 100 mls @ 200 mls/hr IV Q8HR DWAYNE Stop: 12/17/24 21:38 Last Admin: 12/10/24 22:17 Dose: Not Given Potassium Chloride (Kcl Ivpb) 10 meq in 100 mls @ 100 mls/hr IV Q1H DWAYNE Stop: 12/11/24 01:54 Last Admin: 12/10/24 22:17 Dose: Not Given Magnesium Sulfate (Magnesium Sulfate Ivpb) 2 gm in 50 mls @ 25 mls/hr IV X1 ONE Stop: 12/10/24 23:56 Last Infusion: 12/11/24 00:15 Dose: Infused Midazolam HCl (Midazolam Inj 1 Mg/Ml Vial 2 Ml) 2 mg IV Q2M PRN PRN Reason: Moderate Sedation Stop: 12/11/24 21:06 Assessment & Plan Plan Patient is a 49-year-old female with past medical history of hypertension, anxiety and recently diagnosed breast cancer (October 2024) currently undergoing neoadjuvant chemotherapy with her first session administered on November 29 at [facility] who presented to [facility] emergency department on 12/10/2024 with a chief complaint of diarrhea. Patient upgraded to ICU for closer monitoring given acuity and high risk of deterioration. Neuro Currently stable Cardicac #History of hypertension Holding home meds for now in setting of soft BPs Pulm Currently stable GI #Acute upper GI bleed #Esophagitis EGD done today by Dr. Bay which showed active bleeding and oozing. Patient had bipolar heater probe, 7 endoclips, epinephrine, and Hemospray used to control some of the bleeding GI was recommending transfer to tertiary center for CTA with possible embolization Patient given 2 units of PRBCs Follow-up H&H every 4 hours Keep patient n.p.o. #Diarrhea Patient having loose stools that are very dark in color likely from upper GI bleed Patient with rectal tube Patient receiving IV fluids Follow-up H&H Continue with IV fluids #Colitis CT abdomen pelvis showing possible colitis Patient having melena/dark tarry loose stools Patient on ciprofloxacin and Flagyl Follow-up blood cultures and stool culture C. difficile negative Renal Currently stable Heme?Onc #Acute blood loss anemia Patient has received 3 units of PRBCs already during hospital stay Patient receiving 2 additional units after EGD Plan as noted on GI #History of breast cancer Continue follow-up outpatient Consider consulting in hospital heme-onc if patient is to remain in hospital for a long period Endo Currently stable ID #Colitis Plan as noted in GI Diet: N.p.o. DVT prophylaxis: SCDs CODE STATUS: Full code Case discussed with attending Dr. Rayray Jackson MD PGY3
--- NOTE | 2024-12-11 23:22 | PC.NURSE ---
called [facility] for transfer request @ [id number] informed them pt has gastric bypass at [facility]. faxed packet
[2024-12-11] MEDS: ALPRazoLAM 0.25 MG TABLET 1 MG PO (23:41)
--- NOTE | 2024-12-11 23:51 | ESDS_ITS ---
Planned Discharge Date 12/11/24 DS: Providers Provider Date of admission: 12/10/24 21:36 Primary care physician: Hilda Meza MD Admitting Provider: Tony Seo MD Attending Provider on Admission: Tony Seo MD Consults: 12/10/24 21:20 Consult to Gastroenterology Stat Comment: Consulting Provider: Jae Bay 12/11/24 14:44 Referral Wound Care Routine Comment: suspicious area to right sacrum, pt. reports pain Attending Provider on DC: Stan Jackson MD Discharging Provider: Stan Jackson MD DS: Diagnosis Problem List Completed Was Problem List Reviewed/Reconciled?: Yes Hospital Course Hospital Course Hospital course: #Acute blood loss anemia #Acute upper GI bleed #Esophagitis #Diarrhea #History of gastric bypass Rei-en-Y #Colitis #History of hypertension #History of breast cancer Patient is a 49-year-old female with past medical history of hypertension, gastric bypass Rei-en-Y in 2009, anxiety and recently diagnosed breast cancer (October 2024) currently undergoing neoadjuvant chemotherapy with her first session administered on November 29 at [facility] who presented to [facility] emergency department on 12/10/2024 with a chief complaint of diarrhea. Patient has been having multiple loose stools that have turned dark/melanotic in color. Patient hemoglobin dropped and was given 3 units of PRBCs. Today patient had EGD done by Dr. Bay and he observed that patient was still actively bleeding from gastric bypass sites. Patient had bipolar heat probe, 7 endoclips, epinephrine, and Hemospray done during EGD but continued to have active bleeding. Therefore GI has requested patient be upgraded to ICU for closer monitoring, to transfuse 2 units of PRBCs, and to start transfer process. Patient upgraded to ICU for closer monitoring given acuity and high risk of deterioration. ICU charge nurse working on transfer for higher level of care as we do not have a surgeon capable to help with patient at this time. Patient may require CTA with possible embolization which is unavailable at this facility. Case discussed with attending physician Dr. Rayray Jackson MD PGY3 Time Spent with Patient Time attestation: Total time spent providing and/or coordinating discharge services: Exam Vital Signs Temp Pulse Resp BP Pulse Ox O2 Del Method O2 Flow Rate 97.4 F 104 H 15 111/73 100 Nasal Cannula 2 12/11/24 22:55 12/11/24 22:55 12/11/24 22:55 12/11/24 22:55 12/11/24 22:55 12/11/24 21:25 12/11/24 22:55 Narrative Exam General: A/O x3, no acute distress, well-nourished, well-developed, ill- appearing. Lungs: Chest clear to auscultation bilaterally, no wheezing or rhonchi. Cardio: Regular rate and rhythm, no murmurs, rubs, or gallops. Abdomen: Soft, non-tender, no palpable masses, active bowel sounds. Extremities: No edema noted in lower extremities. Skin: No rashes, no lesions, warm to touch. Psych: Cooperative, appropriate mood and effect. Discharge Plan Plan Patient Disposition: Xfer Other Patient condition on transfer: Stable Prescriptions/Referrals Prescriptions/Med Rec: No Action paroxetine HCl [Paxil] 10 mg Tablet 10 mg PO QDAY amlodipine 5 mg Tablet 5 mg PO QDAY norethindrone (contraceptive) [Kalani] 0.35 mg Tablet 0.35 mg PO QDAY alprazolam [Xanax] 1 mg tablet 1 mg PO BID PRN (Reason: anxiety) Qty: 14 0RF ciprofloxacin HCl [Cipro] 500 mg tablet 500 mg PO BID Qty: 14 0RF prochlorperazine maleate [Compazine] 10 mg tablet 10 mg PO Q8H PRN (Reason: nausea and vomiting) diphenoxylate-atropine [Lomotil] 2.5-0.025 mg tablet 1 tab PO QID PRN (Reason: diarrhea) Rx Instructions: 1 to 2 tabs. Max 8 tabs per day acetaminophen 650 mg tablet extended release 650 mg PO Q8H PRN (Reason: pain) Referrals: Hilda Meza MD [Primary Care Provider] - Patient/Caregiver Discharge Instructions Print Language: [place] Stand Alone Forms: Randee Award Info., Patient Portal Info Letter Discharge Order Discharge Orders: Discharge (Routine); Ordered 12/12/24 Ordered By: Stan Jackson Quality Discharge Quality Measures VTE prophylaxis
[2024-12-12] VITALS (46 sets, daily range): BP systolic 105–126; BP diastolic 60–80; PULSE 83–112; RESP 0–24; TEMP 36.7–37.4; O2SAT 96–100
[2024-12-12] MEDS: RINGERS LACTATED 1000 ML 1,000 ML 125 ML IV ×3 (02:43→20:41)
[2024-12-12] MEDS: PANTOPRAZOLE/NS 80MG IV PREMIX 80 MG/100 ML BAG 400 MG IV (04:09)
[2024-12-12] MEDS: PANTOPRAZOLE/NS 80MG IV PREMIX 80 MG/100 ML BAG 10 MG IV ×3 (04:20→21:37)
[2024-12-12] MEDS: metroNIDAZOLE/NS 500 MG IVPB 500 MG/100 ML BAG 200 MG IV ×3 (05:57→21:38)
[2024-12-12 06:06] LABS: Basophils # (Auto) 0.1 Thou/mm3 (0.0-0.2); Basophils % (Auto) 0 % (0-2.5); Eosinophils % (Auto) 0 % (0-10); Hematocrit 24.9 % (36.0-46.0); Immature Granulocytes % (Auto) 2 % (0-0); Immature Granulocytes Auto 0.49 Thou/mm3 (0.00-0.00); Lymphocytes # (Auto) 1.8 Thou/mm3 (1.0-4.8); Lymphocytes % (Auto) 6 % (10-50); Mean Corpuscular HGB Conc 35.7 g/dl (31.0-37.0); Mean Corpuscular Hemoglobin 29.8 pg (25.0-35.0); Mean Corpuscular Volume 83 fL (80-100); Monocytes # (Auto) 0.8 Thou/mm3 (0.0-0.8); Monocytes % (Auto) 3 % (0-12); Neutrophils # (Auto) 26.7 Thou/mm3 (1.8-7.7); Neutrophils % (Auto) 90 % (37-80); Nucleated Red Blood Cell # 0.03 Thou/mm3 (0.00-0.00); Nucleated Red Blood Cell % 0 /100 WBC (0); Platelet Count 98 Thou/mm3 (140-440); RDW Standard Deviation 41.5 fL (36.4-46.3); Red Blood Count 2.99 Miln/mm3 (4.00-5.20)
[2024-12-12 06:11] LABS: Hemoglobin 8.9 g/dL (12.0-16.0); White Blood Count 29.9 Thou/mm3 (3.6-11.0)
--- NOTE | 2024-12-12 07:07 | PC.NURSE ---
[facility] transfer center called and stated pt is accepted pending insurance authorization but there is currently no beds
--- NOTE | 2024-12-12 07:49 | PC.CC ---
Addendum entered by Lizzeth Conway RN 12/12/24 18:18: 1810 spoke to Nelia CHARLES, she confirmed she received auth paperwork. She stated pending bed availability now. Addendum entered by Lizzeth Conway RN 12/12/24 15:14: 1513 auth approval from [employer] insurance faxed to [facility]. Addendum entered by Lizzeth Conway RN 12/12/24 15:09: 1508 Received auth approval fax from [employer] insurance. Auth # [id number]. called [facility], left VM. Addendum entered by Lizzeth Conway RN 12/12/24 13:00: 1259 TBA completed and faxed back to [facility]. Addendum entered by Lizzeth Conway RN 12/12/24 10:36: 1028 received call from Shantel with [employer]. She stated she doesn't handle [place] area. Sanam is the who handles [place] area and her number is [phone]. She stated she will inform Sanam. Addendum entered by Lizzeth Conway RN 12/12/24 10:21: 1019 called Shantel with [employer] at [phone] to expedite the auth process and left VM. Addendum entered by Lizzeth Conway RN 12/12/24 10:17: [address] Jackson notes Dr. Bay has started speaking with [facility] surgeon Dr. Garcia for transfer. Pending callback from [facility]. Patient states she had surgery for bypass at [facility] in [place]. I spoke with Dr. Bay and informed him that [facility] accepted the pt. Pending insurance auth. I asked him about [facility]. Dr. Bay stated he is OK with me to get insurance auth and try to transfer the pt to [facility] where pt has her gastric bypass done. Addendum entered by Lizzeth Conway RN 12/12/24 10:13: 0945 I submitted request for insurance auth online at [email or web address] Addendum entered by Lizzeth Conway RN 12/12/24 10:04: 0927 called [employer] benefit insurance at [phone]. Spoke to [place] regarding insurance auth for transfer. He stated if it is emergent it doesn't not require auth. I informed him accepting hospital is requesting auth. He stated it is done online. He stated to go to [email or web address] Under login select providers. After that the page will have option prior authorization form. I can either select digital form or fillable PDF to fax. Addendum entered by Lizzeth Conway RN 12/12/24 09:09: [address] Mcuqeen regarding transfer diagnosis and ICD-10 code which is GI bleed K92. 2 Addendum entered by Lizzeth Conway RN 12/12/24 09:06: 0904 Cher from [facility] called back and gave accepting info. Pt is accepted at [facility] NPI is [id number]. Tax ID [id number]. Accepted by Dr. Chinmay Almaraz. . Addendum entered by Lizzeth Conway RN 12/12/24 08:55: 0851 called [facility], spoke to Cher to get accepting info so that I can get insurance auth. Cher stated she is busy with another transfer and will call me back. Original Note: 0711 received call from ICU noc charge nurse that pt needs to be transferred for GI bleed need GI services. She informed me that she contacted [facility] because pt has her gastric bypass done at [facility], pt is accepted pending insurance authorization but there is currently no beds. I reviewed Dr. Seo notes that source of bleeding is anastomotic site of the Rei-en-Y gastrojejunostomy.
[2024-12-12 08:11] LABS: Anion Gap 7 (7-16); BUN/Creatinine Ratio 22 Ratio (12-20); Blood Urea Nitrogen 13 mg/dL (9-23); Calcium 7.6 mg/dL (8.3-10.6); Carbon Dioxide 24.2 mMol/L (20.0-31.0); Chloride 114 mMol/L (98-107); Creatinine (Component) 0.6 mg/dL (0.6-1.3); Estimated Creatinine Clearance 110.2 mL/min (>60); Glucose 103 mg/dL (74-106); Osmolality,Calculated 288 (275-295); Potassium 3.3 mMol/L (3.4-5.1); Sodium 145 mMol/L (136-145); eGFR > 60 See Note
[2024-12-12] MEDS: BALSAM PERU/CASTOR OIL (Venelex) 60 GM TUBE TOP (08:23)
[2024-12-12] MEDS: CIPROFLOXACIN/D5w 400 MG IVPB 400 MG/200 ML BAG 200 MG IV ×2 (08:23→20:42)
[2024-12-12 08:33] LABS: Sed Rate (ESR) < 1 mm/hr (0-30)
[2024-12-12 09:57] LABS: Hematocrit 21.8 % (36.0-46.0)
--- NOTE | 2024-12-12 09:59 | ESPR_ITS ---
Documentation for date of: 12/12/24 Subjective Subjective Interval history: Hemoglobin hematocrit 7.8 and 20.9 Patient has been accepted at [facility] by the team of Dr. Almaraz and Dr. Lord who are our original bariatric surgeons No hematemesis So the interventional yesterday has been helpful as there is no major drop in hemoglobin hematocrit although she had some melanotic stool probably old blood Exam Vital Signs Temp Pulse Resp BP Pulse Ox O2 Del Method O2 Flow Rate 98.6 F 100 19 108/60 99 Room Air 2 12/12/24 08:00 12/12/24 09:00 12/12/24 09:00 12/12/24 09:00 12/12/24 09:00 12/12/24 04:00 12/12/24 01:19 Objective Labs 12/12/24 16:50 12/12/24 15:15 Labs: Laboratory Results - last 24 hr 12/10/24 12/10/24 12/11/24 12:00 20:10 04:41 WBC RBC Hgb Hct MCV MCH MCHC RDW Std Deviation Plt Count Neut % (Auto) Lymph % (Auto) [place] % (Auto) Eos % (Auto) Baso % (Auto) Neut # (Auto) Lymph # (Auto) [place] # (Auto) Eos # (Auto) Baso # (Auto) Immature Gran # (Auto) Absolute Nucleated RBC Immature Gran % Nucleated RBC % ESR Cancelled Sodium Potassium Chloride Carbon Dioxide Anion Gap BUN Creatinine Estim Creat Clear Calc eGFR BUN/Creatinine Ratio Glucose Calculated Osmolality Calcium C-Reactive Prot, Quant < 0.4 Stool for White Cells Stl C. diff Tox B Gene Negative Blood Type A Negative Antibody Screen NEGATIVE Crossmatch See Detail Blood Bank Wristband ID Yes 12/11/24 12/12/24 12/12/24 12:00 05:13 07:24 WBC 29.9 H RBC 2.99 L Hgb 8.9 L Hct 24.9 L MCV 83 MCH 29.8 MCHC 35.7 RDW Std Deviation 41.5 Plt Count 98 L Neut % (Auto) 90 H Lymph % (Auto) 6 L [place] % (Auto) 3 Eos % (Auto) 0 Baso % (Auto) 0 Neut # (Auto) 26.7 H Lymph # (Auto) 1.8 [place] # (Auto) 0.8 Eos # (Auto) 0.0 Baso # (Auto) 0.1 Immature Gran # (Auto) 0.49 H Absolute Nucleated RBC 0.03 H Immature Gran % 2 H Nucleated RBC % 0 ESR Cancelled < 1 Sodium 145 Potassium 3.3 L D Chloride 114 H Carbon Dioxide 24.2 Anion Gap 7 BUN 13 Creatinine 0.6 Estim Creat Clear Calc 110.2 eGFR > 60 BUN/Creatinine Ratio 22 H Glucose 103 Calculated Osmolality 288 Calcium 7.6 L C-Reactive Prot, Quant Stool for White Cells Negative Stl C. diff Tox B Gene Blood Type Antibody Screen Crossmatch Blood Bank Wristband ID Impressions Impression: # Anastomotic site ulceration most likely the cause status post endoscopic intervention Acid the patient to a tertiary center for further evaluation management Assessment & Plan A&P Narrative # Hematemesis # Bloody diarrhea # Abnormal CT scan of the abdomen pelvis showing pancolitis Differential diagnosis include Infectious enterocolitis versus C. difficile enterocolitis Breast carcinoma undergoing roseanna adjuvant chemotherapy last dose November 29 Plan stool culture and sensitivity stool for C. difficile by PCR Stool for fecal calprotectin ANCA antibody Schedule fiberoptic esophagogastroduodenoscopy with possible therapeutic intervention possible biopsy under intravenous moderate sedation for evaluation of hematemesis I will wait for the stool culture and sensitivity as well as C. difficile before scheduling a colonoscopy for pancolitis Thank you once again for the opportunity to participate in the care of this patient Time Spent With Patient Time: Total time spent is greater than 50% in coordination of care (as documented) at patient's floor/unit and/or counseling patient:
[2024-12-12 10:00] LABS: Hemoglobin 7.8 g/dL (12.0-16.0)
[2024-12-12 10:13] LABS: INR 1.1 (0.9-1.3); Prothrombin Time 12.4 Seconds (9.0-12.2)
--- NOTE | 2024-12-12 10:15 | ESPR_ITS ---
<Statement entered by Agnes Quach MD - 12/13/24 13:21> TOTAL TIME: 45MINUTES ON DIRECT MEDICAL CARE, MANAGEMENT - COORDINATION AND COUNSELING > 50% OF TOTAL TIME I saw and evaluated the patient. I reviewed the resident?s note and agree with findings and plan as documented in the resident?s note. Transferred to the ICU for further observation status post 5 units PRBC transfusion. No factors were placed for platelets. If further transfusions required we will also transfuse FFP and platelets. Pending transfer to tertiary center to consider embolization of the culprit vessel. Currently hemodynamics are acceptable and patient is not in distress Documentation for date of: 12/12/24 Subjective Subjective Interval history: Patient is a 49-year-old female with past medical history of hypertension, gastric bypass in 2009, anxiety and recently diagnosed breast cancer (October 2024) currently undergoing neoadjuvant chemotherapy with her first session administered on November 29 at [facility] who presented to [facility] emergency department on 12/10/2024 with a chief complaint of diarrhea. Today patient had EGD done by Dr. Bay and he observed that patient was still actively bleeding from gastric bypass sites. He has requested patient be upgraded to ICU for close monitoring, 2 units of PRBCs, and has started transfer process. Dr. Bay has started speaking with [facility] surgeon Dr. Garcia for transfer. Pending callback from [facility]. Patient upgraded to ICU for closer monitoring given acuity and high risk of deterioration. Patient currently denying any lightheadedness, dizziness, nausea, chest pain, shortness of breath, or abdominal pain. Patient states she had surgery for bypass at [facility] in [place]. 12/12/24: Overnight, no acute events reported. Patient continues to have black stools, and rectal tube was removed today. Patient denied any dizziness, vomiting or abdominal pain. Patient's tachycardia has resolved. Patient is awaiting transfer for surgical management of GI bleed. Will continue to trend H&H Q4H, and replete with pRBC/FFP if needed. Exam Vital Signs Temp Pulse Resp BP Pulse Ox O2 Del Method O2 Flow Rate 98.6 F 102 H 17 123/69 99 Room Air 2 12/12/24 08:00 12/12/24 10:00 12/12/24 10:12/12/24 10:12/12/24 10:12/12/24 04:00 12/12/24 01:19 Narrative Exam General: A/O x3, no acute distress, well-nourished, well-developed. Lungs: Chest clear to auscultation bilaterally, no wheezing or rhonchi. Cardio: Regular rate and rhythm, no murmurs, rubs, or gallops. Abdomen: Soft, non-tender, no palpable masses, active bowel sounds. Extremities: No edema noted in lower extremities. Skin: No rashes, no lesions, warm to touch. Psych: Cooperative, appropriate mood and effect. Objective Labs 12/12/24 09:46 12/12/24 07:24 Labs: Laboratory Results - last 24 hr 12/10/24 12/10/24 12/11/24 12:00 20:10 04:41 WBC RBC Hgb Hct MCV MCH MCHC RDW Std Deviation Plt Count Neut % (Auto) Lymph % (Auto) [place] % (Auto) Eos % (Auto) Baso % (Auto) Neut # (Auto) Lymph # (Auto) [place] # (Auto) Eos # (Auto) Baso # (Auto) Immature Gran # (Auto) Absolute Nucleated RBC Immature Gran % Nucleated RBC % ESR Cancelled PT INR Sodium Potassium Chloride Carbon Dioxide Anion Gap BUN Creatinine Estim Creat Clear Calc eGFR BUN/Creatinine Ratio Glucose Calculated Osmolality Calcium C-Reactive Prot, Quant < 0.4 Stool for White Cells Stl C. diff Tox B Gene Negative Blood Type A Negative Antibody Screen NEGATIVE Crossmatch See Detail Blood Bank Wristband ID Yes 12/11/24 12/12/24 12/12/24 12:00 05:13 07:24 WBC 29.9 H RBC 2.99 L Hgb 8.9 L Hct 24.9 L MCV 83 MCH 29.8 MCHC 35.7 RDW Std Deviation 41.5 Plt Count 98 L Neut % (Auto) 90 H Lymph % (Auto) 6 L [place] % (Auto) 3 Eos % (Auto) 0 Baso % (Auto) 0 Neut # (Auto) 26.7 H Lymph # (Auto) 1.8 [place] # (Auto) 0.8 Eos # (Auto) 0.0 Baso # (Auto) 0.1 Immature Gran # (Auto) 0.49 H Absolute Nucleated RBC 0.03 H Immature Gran % 2 H Nucleated RBC % 0 ESR Cancelled < 1 PT INR Sodium 145 Potassium 3.3 L D Chloride 114 H Carbon Dioxide 24.2 Anion Gap 7 BUN 13 Creatinine 0.6 Estim Creat Clear Calc 110.2 eGFR > 60 BUN/Creatinine Ratio 22 H Glucose 103 Calculated Osmolality 288 Calcium 7.6 L C-Reactive Prot, Quant Stool for White Cells Negative Stl C. diff Tox B Gene Blood Type Antibody Screen Crossmatch Blood Bank Wristband ID 12/12/24 09:46 WBC RBC Hgb 7.8 L Hct 21.8 L* MCV MCH MCHC RDW Std Deviation Plt Count Neut % (Auto) Lymph % (Auto) [place] % (Auto) Eos % (Auto) Baso % (Auto) Neut # (Auto) Lymph # (Auto) [place] # (Auto) Eos # (Auto) Baso # (Auto) Immature Gran # (Auto) Absolute Nucleated RBC Immature Gran % Nucleated RBC % ESR PT 12.4 H INR 1.1 Sodium Potassium Chloride Carbon Dioxide Anion Gap BUN Creatinine Estim Creat Clear Calc eGFR BUN/Creatinine Ratio Glucose Calculated Osmolality Calcium C-Reactive Prot, Quant Stool for White Cells Stl C. diff Tox B Gene Blood Type Antibody Screen Crossmatch Blood Bank Wristband ID Quality Measures Quality Measures VTE prophylaxis Assessment & Plan Assessment Current Active Medications: Generic Name Dose Route Start Last Admin Trade Name Freq PRN Reason Stop Dose Admin Acetaminophen 650 mg 12/10/24 21:35 Acetaminophen 325 Mg Tablet PO 01/09/25 21:34 Q6H PRN Fever >101.5 Alprazolam 1 mg 12/10/24 21:38 12/11/24 23:41 Alprazolam 0.25 Mg Tablet PO 12/16/24 08:59 1 mg BID PRN Administration ANXIETY Balsam [place] Oil 0 gm 12/11/24 21:00 12/12/24 08:23 Balsam [place] Oil (Venelex) 60 Gm Tube TOP 01/10/25 20:59 1 applicatio BID DWAYNE Administration Metronidazole 500 mg in 100 mls @ 200 mls/hr 12/10/24 22:00 12/12/24 05:57 Flagyl 500 Mg Iv IV 12/17/24 21:59 200 mls/hr Q8HR DWAYNE Administration Lactated Ringer's 1,000 mls @ 125 mls/hr 12/10/24 21:45 12/12/24 02:43 Lactated Ringers IV 03/19/25 21:44 125 mls/hr .Q8H DWAYNE Administration Ciprofloxacin/Dextrose 400 mg in 200 mls @ 200 mls/hr 12/11/24 09:00 12/12/24 08:23 Cipro Ivpb IV 12/18/24 08:59 200 mls/hr Q12HR DWAYNE Administration Pantoprazole Sodium 80 mg in 100 mls @ 10 mls/hr 12/12/24 02:43 12/12/24 04:20 Protonix/Ns 80mg Iv Premix IV 12/15/24 00:42 10 mls/hr Q10H DWAYNE Administration Plan Patient is a 49-year-old female with past medical history of hypertension, anxiety and recently diagnosed breast cancer (October 2024) currently undergoing neoadjuvant chemotherapy with her first session administered on November 29 at [facility] who presented to [facility] emergency department on 12/10/2024 with a chief complaint of diarrhea. Patient upgraded to ICU for closer monitoring given acuity and high risk of deterioration. Neuro Currently stable Cardiac #Sinus tachycardia?resolved #QTc prolongation daily Patient's last EKG showed sinus tachycardia with QTc prolongation of 496 -Avoid any medications that would prolong QTc such as antiemetics #History of hypertension Holding home meds for now in setting of soft BPs Pulm Currently stable GI #Acute upper GI bleed #Esophagitis Patient presented with bloody diarrhea and melanotic stools. EGD done yesterday by Dr. Bay which showed active bleeding and oozing. Patient had bipolar heater probe, 7 endoclips, epinephrine, and Hemospray used to control some of the bleeding GI was recommending transfer to tertiary center for CTA with possible embolization and anastomotic revision of Rei-en-Y site Patient given 2 units of PRBCs after EGD, total patient received 5 units of packed red blood cells Coag panel shows slightly elevated PT of 12.4 otherwise normal INR -Rectal tube DC'd -Continue with maintenance IV fluids -Follow-up H&H every 4 hours -Transfuse if less than hemoglobin of 7 -Keep patient n.p.o. -Continue IV Protonix #Colitis CT abdomen pelvis showing nonspecific pattern of colitis Patient having melena/dark tarry loose stools C. difficile negative, negative for white cells in stool -Continue with IV ciprofloxacin and Flagyl -Follow-up blood cultures and stool culture Renal #Electrolyte imbalance #Hypokalemia #Hypocalcemia -Follow-up CMP at 15:00 and replete as needed Heme?Onc #Acute blood loss anemia Patient has received 3 units of PRBCs already during hospital stay Patient receiving 2 additional units after EGD -Plan as noted on GI -Consider FFP transfusion and considering next blood transfusion #History of breast cancer Continue follow-up outpatient Patient is scheduled for bilateral masectomy status post 6 weeks of chemo treatment Consider consulting in hospital heme-onc if patient is to remain in hospital for a long period Endo Currently stable ID #Colitis Plan as noted in GI PSYCH #Anxiety Xanax PRN Health Maintenance: DVT prophylaxis: SCDs Diet: NPO Melara: Yes Lines: PIV Drips: Protonix Vent:N/A CODE STATUS: Full code Disposition: Upgraded to ICU for close monitoring for GI bleed Patient's care and plan discussed with attending Dr. Main Mcqueen MD PGY2
[2024-12-12] MEDS: CALCIUM GLUC/NS 1000MG IVPB 1,000 MG/50 ML BAG 50 MG IV (11:41)
[2024-12-12] MEDS: POTASSIUM CHL 10 mEq IVPB 10 MEQ/100 ML BAG 100 MEQ IV ×2 (12:56→13:56)
[2024-12-12 13:05] LABS: Hematocrit 21.3 % (36.0-46.0)
[2024-12-12 13:10] LABS: Hemoglobin 7.8 g/dL (12.0-16.0)
[2024-12-12 16:14] LABS: Alanine Aminotransferase 53 U/L (10-49); Albumin, Serum 2.3 gm/dL (3.5-5.0); Albumin/Globulin Ratio 1.8 (1.2-2.2); Alkaline Phosphatase 78 U/L (46-116); Anion Gap 8 (7-16); Aspartate Amino Transferase 44 U/L (0-34); BUN/Creatinine Ratio 18 Ratio (12-20); Bilirubin,Total 0.8 mg/dL (0.3-1.2); Blood Urea Nitrogen 11 mg/dL (9-23); Calcium 7.7 mg/dL (8.3-10.6); Calcium (Corrected) 9.1 mg/dL (8.5-10.1); Carbon Dioxide 24.5 mMol/L (20.0-31.0); Chloride 111 mMol/L (98-107); Creatinine (Component) 0.6 mg/dL (0.6-1.3); Estimated Creatinine Clearance 110.2 mL/min (>60); Globulin 1.3 gm/dL (2.3-3.5); Glucose 96 mg/dL (74-106); Osmolality,Calculated 284 (275-295); Potassium 3.6 mMol/L (3.4-5.1); Sodium 143 mMol/L (136-145); Total Protein 3.6 gm/dL (5.7-8.2); eGFR > 60 See Note
[2024-12-12 17:09] LABS: Hematocrit 20.9 % (36.0-46.0)
[2024-12-12 17:29] LABS: Hemoglobin 7.5 g/dL (12.0-16.0)
--- NOTE | 2024-12-12 20:11 | PD.RESPRO ---
Documentation for date of: 12/12/24 Subjective Subjective Interval history: Patient seen and examined in telemetry. Patient complains of mild on and off abdominal pain, otherwise denies any symptoms currently. Patient was upgraded to ICU for close observation because of close monitoring, 2 units PRBC was given post EGD. Patient continued to have black stools, rectal tube was removed earlier in ICU. Patient awaiting transfer for surgical management of GI bleed. ICU recommends transfusing PRBCs/FFP if hemoglobin less than 7, will continue to trend H&H every 4 hour. Exam Vital Signs Temp Pulse Resp BP Pulse Ox O2 Del Method O2 Flow Rate 98.8 F 96 2 L 123/75 99 Room Air 2 12/12/24 16:00 12/12/24 19:15 12/12/24 19:15 12/12/24 18:00 12/12/24 19:15 12/12/24 04:00 12/12/24 01:19 Narrative Exam General: A/O x3, no acute distress, well-nourished, well-developed. Lungs: Chest clear to auscultation bilaterally, no wheezing or rhonchi. Cardio: Regular rate and rhythm, no murmurs, rubs, or gallops. Abdomen: Soft, non-tender, no palpable masses, active bowel sounds. Extremities: No edema noted in lower extremities. Skin: No rashes, no lesions, warm to touch. Psych: Cooperative, appropriate mood and effect. Objective Labs 12/12/24 20:47 12/12/24 15:15 Labs: Laboratory Results - last 24 hr 12/10/24 12/12/24 12/12/24 20:10 05:13 07:24 WBC 29.9 H RBC 2.99 L Hgb 8.9 L Hct 24.9 L MCV 83 MCH 29.8 MCHC 35.7 RDW Std Deviation 41.5 Plt Count 98 L Neut % (Auto) 90 H Lymph % (Auto) 6 L [place] % (Auto) 3 Eos % (Auto) 0 Baso % (Auto) 0 Neut # (Auto) 26.7 H Lymph # (Auto) 1.8 [place] # (Auto) 0.8 Eos # (Auto) 0.0 Baso # (Auto) 0.1 Immature Gran # (Auto) 0.49 H Absolute Nucleated RBC 0.03 H Immature Gran % 2 H Nucleated RBC % 0 ESR Cancelled < 1 PT INR Sodium 145 Potassium 3.3 L D Chloride 114 H Carbon Dioxide 24.2 Anion Gap 7 BUN 13 Creatinine 0.6 Estim Creat Clear Calc 110.2 eGFR > 60 BUN/Creatinine Ratio 22 H Glucose 103 Calculated Osmolality 288 Calcium 7.6 L Corrected Calcium Total Bilirubin AST ALT Alkaline Phosphatase Total Protein Albumin Globulin Albumin/Globulin Ratio Blood Type A Negative Antibody Screen NEGATIVE Crossmatch See Detail Blood Bank Wristband ID Yes 12/12/24 12/12/24 12/12/24 09:46 12:50 15:15 WBC RBC Hgb 7.8 L 7.8 L Hct 21.8 L* 21.3 L* MCV MCH MCHC RDW Std Deviation Plt Count Neut % (Auto) Lymph % (Auto) [place] % (Auto) Eos % (Auto) Baso % (Auto) Neut # (Auto) Lymph # (Auto) [place] # (Auto) Eos # (Auto) Baso # (Auto) Immature Gran # (Auto) Absolute Nucleated RBC Immature Gran % Nucleated RBC % ESR PT 12.4 H INR 1.1 Sodium 143 Potassium 3.6 Chloride 111 H Carbon Dioxide 24.5 Anion Gap 8 BUN 11 Creatinine 0.6 Estim Creat Clear Calc 110.2 eGFR > 60 BUN/Creatinine Ratio 18 Glucose 96 Calculated Osmolality 284 Calcium 7.7 L Corrected Calcium 9.1 Total Bilirubin 0.8 D AST 44 H ALT 53 H Alkaline Phosphatase 78 D Total Protein 3.6 L Albumin 2.3 L D Globulin 1.3 L Albumin/Globulin Ratio 1.8 Blood Type Antibody Screen Crossmatch Blood Bank Wristband ID 12/12/24 16:50 WBC RBC Hgb 7.5 L Hct 20.9 L* MCV MCH MCHC RDW Std Deviation Plt Count Neut % (Auto) Lymph % (Auto) [place] % (Auto) Eos % (Auto) Baso % (Auto) Neut # (Auto) Lymph # (Auto) [place] # (Auto) Eos # (Auto) Baso # (Auto) Immature Gran # (Auto) Absolute Nucleated RBC Immature Gran % Nucleated RBC % ESR PT INR Sodium Potassium Chloride Carbon Dioxide Anion Gap BUN Creatinine Estim Creat Clear Calc eGFR BUN/Creatinine Ratio Glucose Calculated Osmolality Calcium Corrected Calcium Total Bilirubin AST ALT Alkaline Phosphatase Total Protein Albumin Globulin Albumin/Globulin Ratio Blood Type Antibody Screen Crossmatch Blood Bank Wristband ID Quality Measures Quality Measures VTE prophylaxis Assessment & Plan Assessment Current Active Medications: Generic Name Dose Route Start Last Admin Trade Name Freq PRN Reason Stop Dose Admin Acetaminophen 650 mg 12/10/24 21:35 Acetaminophen 325 Mg Tablet PO 01/09/25 21:34 Q6H PRN Fever >101.5 Alprazolam 1 mg 12/10/24 21:38 12/11/24 23:41 Alprazolam 0.25 Mg Tablet PO 12/16/24 08:59 1 mg BID PRN Administration ANXIETY Balsam [place] Oil 0 gm 12/11/24 21:00 12/12/24 08:23 Balsam [place] Oil (Venelex) 60 Gm Tube TOP 01/10/25 20:59 1 applicatio BID DWAYNE Administration Metronidazole 500 mg in 100 mls @ 200 mls/hr 12/10/24 22:00 12/12/24 14:20 Flagyl 500 Mg Iv IV 12/17/24 21:59 200 mls/hr Q8HR DWAYNE Administration Lactated Ringer's 1,000 mls @ 125 mls/hr 12/10/24 21:45 12/12/24 11:40 Lactated Ringers IV 01/09/25 21:44 125 mls/hr .Q8H DWAYNE Administration Ciprofloxacin/Dextrose 400 mg in 200 mls @ 200 mls/hr 12/11/24 09:00 12/12/24 08:23 Cipro Ivpb IV 12/18/24 08:59 200 mls/hr Q12HR DWAYNE Administration Pantoprazole Sodium 80 mg in 100 mls @ 10 mls/hr 12/12/24 02:43 12/12/24 12:57 Protonix/Ns 80mg Iv Premix IV 12/15/24 00:42 10 mls/hr Q10H DWAYNE Administration Plan Assessment and Plan: Summary: Patient is a 49-year-old female with past medical history of hypertension, anxiety and recently diagnosed breast cancer (October 2024) currently undergoing neoadjuvant chemotherapy with her first session administered on November 29 at [facility] who presented to [facility] emergency department on 12/10/2024 with a chief complaint of diarrhea. Patient was upgraded to ICU on 12/11/2024 for closer monitoring given acuity and high risk of deterioration, with stable throughout the ICU stay, downgraded 12/12/24. #Acute upper GI bleed #Esophagitis Patient presented with bloody diarrhea and melanotic stools. EGD done yesterday by Dr. Bay which showed active bleeding and oozing. Patient had bipolar heater probe, 7 endoclips, epinephrine, and Hemospray used to control some of the bleeding GI was recommending transfer to tertiary center for CTA with possible embolization and anastomotic revision of Rei-en-Y site Patient given 2 units of PRBCs after EGD, total patient received 5 units of packed red blood cells Coag panel shows slightly elevated PT of 12.4 otherwise normal INR Plan: -Rectal tube discontinued 12/12 in ICU -Continue with maintenance IV fluids -Follow-up H&H every 4 hours -Transfuse if less than hemoglobin of 7, will transfuse 1 unit FFP along with PRBC as needed -Keep patient n.p.o. -Continue IV Protonix #Colitis CT abdomen pelvis 12/09- showing nonspecific pattern of colitis Patient having melena/dark tarry loose stools C. difficile negative, negative for white cells in stool -Continue with IV ciprofloxacin and Flagyl -Follow-up blood cultures and stool culture #Sinus tachycardia?resolved #?QTc prolongation Patient's last EKG showed sinus tachycardia with QTc prolongation of 496 -Avoid any medications that would prolong QTc such as antiemetics #History of hypertension Holding home meds for now in setting of soft BPs #Electrolyte imbalance #Hypokalemia #Hypocalcemia -Follow-up CMP, correct and replace electrolytes. #History of breast cancer Continue follow-up outpatient Patient is scheduled for bilateral masectomy status post 6 weeks of chemo treatment Consider consulting in hospital heme-onc if patient is to remain in hospital for a long period #Anxiety Xanax PRN Health Maintenance: DVT prophylaxis: SCDs Diet: NPO [place]: Yes Lines: PIV Drips: Protonix Vent:N/A CODE STATUS: Full code Case discussed with Attending Dr. Seo. [place] Newsome PGY1 Disclaimer: This note was dictated by speech recognition. Minor errors in police artist may be present due to voice recognition software.
[2024-12-12 20:55] LABS: Hematocrit 21.3 % (36.0-46.0)
[2024-12-12 21:02] LABS: Hemoglobin 7.7 g/dL (12.0-16.0)
[2024-12-12] MEDS: ALPRazoLAM 0.25 MG TABLET 1 MG PO (21:38)
[2024-12-13] VITALS (8 sets, daily range): BP systolic 113–124; BP diastolic 71–79; PULSE 84–109; RESP 14–23; TEMP 36.6–37.3; O2SAT 93–98; BMI 26.4
[2024-12-13 02:32] LABS: Hemoglobin 7.2 g/dL (12.0-16.0)
--- NOTE | 2024-12-13 03:06 | PC.NURSE ---
Pt's HGB 7.2, HCT 20, Dr. Moody was made aware, new orders for pt. See orders/ MAR.
[2024-12-13 05:30] LABS: Basophils % (Auto) 0 % (0-2.5); Eosinophils # (Auto) 0.1 Thou/mm3 (0.0-0.5); Eosinophils % (Auto) 0 % (0-10); Hematocrit 21.6 % (36.0-46.0); Immature Granulocytes % (Auto) 1 % (0-0); Immature Granulocytes Auto 0.19 Thou/mm3 (0.00-0.00); Lymphocytes # (Auto) 2.1 Thou/mm3 (1.0-4.8); Lymphocytes % (Auto) 10 % (10-50); Mean Corpuscular HGB Conc 35.2 g/dl (31.0-37.0); Mean Corpuscular Hemoglobin 29.6 pg (25.0-35.0); Mean Corpuscular Volume 84 fL (80-100); Monocytes # (Auto) 0.8 Thou/mm3 (0.0-0.8); Monocytes % (Auto) 4 % (0-12); Neutrophils # (Auto) 17.1 Thou/mm3 (1.8-7.7); Neutrophils % (Auto) 84 % (37-80); Nucleated Red Blood Cell # 0.02 Thou/mm3 (0.00-0.00); Nucleated Red Blood Cell % 0 /100 WBC (0); Platelet Count 92 Thou/mm3 (140-440); RDW Standard Deviation 44.2 fL (36.4-46.3); Red Blood Count 2.57 Miln/mm3 (4.00-5.20); White Blood Count 20.2 Thou/mm3 (3.6-11.0)
[2024-12-13 05:41] LABS: Hemoglobin 7.6 g/dL (12.0-16.0)
[2024-12-13] MEDS: RINGERS LACTATED 1000 ML 1,000 ML 70 ML IV ×2 (05:44→19:38)
[2024-12-13] MEDS: metroNIDAZOLE/NS 500 MG IVPB 500 MG/100 ML BAG 200 MG IV ×3 (05:45→21:54)
[2024-12-13 06:32] LABS: Anion Gap 9 (7-16); BUN/Creatinine Ratio 14 Ratio (12-20); Blood Urea Nitrogen 7 mg/dL (9-23); Calcium 7.9 mg/dL (8.3-10.6); Carbon Dioxide 25.9 mMol/L (20.0-31.0); Chloride 109 mMol/L (98-107); Creatinine (Component) 0.5 mg/dL (0.6-1.3); Estimated Creatinine Clearance 132.2 mL/min (>60); Glucose 93 mg/dL (74-106); Magnesium 1.5 mg/dL (1.6-2.6); Osmolality,Calculated 284 (275-295); Potassium 3.1 mMol/L (3.4-5.1); Sodium 144 mMol/L (136-145); eGFR > 60 See Note
[2024-12-13] MEDS: POTASSIUM CHL 10 mEq IVPB 10 MEQ/100 ML BAG 100 MEQ IV ×2 (08:29→09:49)
[2024-12-13] MEDS: CIPROFLOXACIN/D5w 400 MG IVPB 400 MG/200 ML BAG 200 MG IV ×2 (08:30→20:50)
[2024-12-13] MEDS: PANTOPRAZOLE/NS 80MG IV PREMIX 80 MG/100 ML BAG 10 MG IV ×2 (08:30→19:38)
[2024-12-13] MEDS: Magnesium Sulfate 4 GM Ivpb 4 GM/50 ML BAG IV (09:48)
--- NOTE | 2024-12-13 11:13 | ESPR_ITS ---
<Statement entered by Nola Fournier MD - 12/13/24 15:46> I discussed with and supervised my co-resident involved in the care of this patient. I agree with the assessment and plan as documented above. Patient downgraded from ICU overnight. Hemoglobin has been stable. Had 1 episode of bloody bowl movement yesterday. Today, patient is feeling a bit down and is eager to be transferred to [facility] for CTA embolization for the bleeding around the anastomosis site of the [id number] surgery. Patient has been accepted to [facility], just pending bed availability and insurance authorization. Patient to undergo repeat endoscopy. Nola Fournier MD PGY-3 Documentation for date of: 12/13/24 Subjective Subjective Interval history: Patient was seen at bedside this morning. No overnight events. Patient hemoglobin was stable today at 7.6. She was downgraded from the ICU yesterday after she would have been upgraded on 12/11/2024 due to close monitoring of hemoglobin requiring multiple PRBCs given that she was bleeding from her anastomosis site of her gastric bypass. Today patient stated she felt a little bit more overwhelmed and depressed due to the situation and she would like to be transferred as soon as possible. Will start patient's paroxetine back today and patient is accepted at [facility], but we are awaiting a bed availability. No other complaints at this time patient does not have any abdominal pain and her bowel movements have been decreasing as she has not passed a BM today, but last BM last night was bloody. Will do a repeat H&H at around noontime today. Will transfuse 1 PRBC along with 1 FFP if needed. Exam Vital Signs Temp Pulse Resp BP Pulse Ox O2 Del Method O2 Flow Rate 99.2 F 93 16 120/71 93 L Room Air 2 12/13/24 08:00 12/13/24 08:00 12/13/24 08:00 12/13/24 08:00 12/13/24 08:00 12/13/24 08:00 12/12/24 01:19 Narrative Exam General: A/O x3, no acute distress, well-nourished, well-developed Eyes: PERRL, EOMI. Anicteric, vision grossly intact. Ears: No ear pain, no ear discharge, Hearing grossly intact. Nose: No nasal discharge. Mouth/Throat: Moist mucous membranes, no redness, no lesions. Neck: Neck supple, non-tender, no cervical lymphadenopathy. Lungs: Clear KIM to auscultation and percussion, No accessory muscle use. Cardio: Normal S1/S2, regular rhythm, no murmurs, no JVD or carotid bruits. Abdomen: Soft, non-tender, no palpable masses, peristalsis present, no guarding or rebound. Extremities: Symmetrical, no significant deformities, no peripheral edema , non-tender, peripheral pulses presents. Skin: No rashes, no lesions, warm to touch. Neuro: No focal neurological deficits. motor and sensory intact. Psych: Cooperative, appropriate mood and effect. Objective Labs 12/13/24 12:45 12/13/24 04:40 Labs: Laboratory Results - last 24 hr 12/10/24 12/12/24 12/12/24 20:10 12:50 15:15 WBC RBC Hgb 7.8 L Hct 21.3 L* MCV MCH MCHC RDW Std Deviation Plt Count Neut % (Auto) Lymph % (Auto) [place] % (Auto) Eos % (Auto) Baso % (Auto) Neut # (Auto) Lymph # (Auto) [place] # (Auto) Eos # (Auto) Baso # (Auto) Immature Gran # (Auto) Absolute Nucleated RBC Immature Gran % Nucleated RBC % Sodium 143 Potassium 3.6 Chloride 111 H Carbon Dioxide 24.5 Anion Gap 8 BUN 11 Creatinine 0.6 Estim Creat Clear Calc 110.2 eGFR > 60 BUN/Creatinine Ratio 18 Glucose 96 Calculated Osmolality 284 Calcium 7.7 L Corrected Calcium 9.1 Magnesium Total Bilirubin 0.8 D AST 44 H ALT 53 H Alkaline Phosphatase 78 D Total Protein 3.6 L Albumin 2.3 L D Globulin 1.3 L Albumin/Globulin Ratio 1.8 Blood Type A Negative Antibody Screen NEGATIVE Crossmatch See Detail Blood Bank Wristband ID Yes 12/12/24 12/12/24 12/13/24 16:50 20:47 00:42 WBC RBC Hgb 7.5 L 7.7 L 7.2 L Hct 20.9 L* 21.3 L* 20.0 L* MCV MCH MCHC RDW Std Deviation Plt Count Neut % (Auto) Lymph % (Auto) [place] % (Auto) Eos % (Auto) Baso % (Auto) Neut # (Auto) Lymph # (Auto) [place] # (Auto) Eos # (Auto) Baso # (Auto) Immature Gran # (Auto) Absolute Nucleated RBC Immature Gran % Nucleated RBC % Sodium Potassium Chloride Carbon Dioxide Anion Gap BUN Creatinine Estim Creat Clear Calc eGFR BUN/Creatinine Ratio Glucose Calculated Osmolality Calcium Corrected Calcium Magnesium Total Bilirubin AST ALT Alkaline Phosphatase Total Protein Albumin Globulin Albumin/Globulin Ratio Blood Type Antibody Screen Crossmatch Blood Bank Wristband ID 12/13/24 04:40 WBC 20.2 H D RBC 2.57 L Hgb 7.6 L Hct 21.6 L* MCV 84 MCH 29.6 MCHC 35.2 RDW Std Deviation 44.2 Plt Count 92 L Neut % (Auto) 84 H Lymph % (Auto) 10 [place] % (Auto) 4 Eos % (Auto) 0 Baso % (Auto) 0 Neut # (Auto) 17.1 H Lymph # (Auto) 2.1 [place] # (Auto) 0.8 Eos # (Auto) 0.1 Baso # (Auto) 0.0 Immature Gran # (Auto) 0.19 H Absolute Nucleated RBC 0.02 H Immature Gran % 1 H Nucleated RBC % 0 Sodium 144 Potassium 3.1 L D Chloride 109 H Carbon Dioxide 25.9 Anion Gap 9 BUN 7 L Creatinine 0.5 L Estim Creat Clear Calc 132.2 eGFR > 60 BUN/Creatinine Ratio 14 Glucose 93 Calculated Osmolality 284 Calcium 7.9 L Corrected Calcium Magnesium 1.5 L Total Bilirubin AST ALT Alkaline Phosphatase Total Protein Albumin Globulin Albumin/Globulin Ratio Blood Type Antibody Screen Crossmatch Blood Bank Wristband ID Quality Measures Quality Measures VTE prophylaxis Assessment & Plan Assessment Current Active Medications: Generic Name Dose Route Start Last Admin Trade Name Kaya PRN Reason Stop Dose Admin Acetaminophen 650 mg 12/10/24 21:35 Acetaminophen 325 Mg Tablet PO 01/09/25 21:34 Q6H PRN Fever >101.5 Alprazolam 1 mg 12/10/24 21:38 12/12/24 21:38 Alprazolam 0.25 Mg Tablet PO 12/16/24 08:59 1 mg BID PRN Administration ANXIETY Balsam Check/Bliss Oil 0 gm 12/11/24 21:00 12/13/24 10:32 Balsam Check/Bliss Oil (Venelex) 60 Gm Tube TOP 01/10/25 20:59 Not Given BID DWAYNE Metronidazole 500 mg in 100 mls @ 200 mls/hr 12/10/24 22:00 12/13/24 05:45 Flagyl 500 Mg Iv IV 12/17/24 21:59 200 mls/hr Q8HR DWANYE Administration Ciprofloxacin/Dextrose 400 mg in 200 mls @ 200 mls/hr 12/11/24 09:00 12/13/24 08:30 Cipro Ivpb IV 12/18/24 08:59 200 mls/hr Q12HR DWAYNE Administration Pantoprazole Sodium 80 mg in 100 mls @ 10 mls/hr 12/12/24 02:43 12/13/24 08:30 Protonix/Ns 80mg Iv Premix IV 12/15/24 00:42 10 mls/hr Q10H DWAYNE Administration Lactated Ringer's 1,000 mls @ 70 mls/hr 12/13/24 03:11 12/13/24 05:44 Lactated Ringers IV 01/12/25 03:10 70 mls/hr .[id number] DWAYNE Administration Magnesium Sulfate 4 gm in 50 mls @ 12.5 mls/hr 12/13/24 07:46 12/13/24 09:48 Magnesium Sulfate Ivpb IV 12/13/24 11:45 12.5 mls/hr X1 ONE Administration Paroxetine HCl 10 mg 12/13/24 10:45 Paroxetine Hcl 10 Mg Tablet PO 01/12/25 10:44 QDAY DWAYNE Plan 49-year-old female with past medical history of breast cancer status post neoadjuvant chemotherapy (first section on November 29, 2024), hypertension, and anxiety was admitted to the hospital on 12/10/2024 due to a syncopal episode likely in the setting of acute blood loss anemia secondary to GI bleed with hematochezia and hematemesis. #Syncopal episodes #Acute blood loss anemia #GI bleed, gastric bypass anastomosis site #Hematochezia #Hematemesis #Leukocytosis #Esophagitis #Colitis #Breast cancer, on chemotherapy (first chemo on 11/29/2024) ? Patient came in with complaints of bloody diarrhea as well as his bloody emesis since Tuesday. Has been having about 20 bowel movements per day ?Patient got her first dose of chemotherapy on November 29, 2024 and then experienced some diarrhea, but these were nonbloody initially. ?CT abdomen/pelvis showed colitis nonspecific pattern ? Patient got 3 units of PRBC and 3 L of LR in the ED. ?Patient had EGD done on 12/11/2024 which showed esophagitis and bleeding from gastric bypass anastomosis site. ? Hemoglobin 7.6 today ? WBC 20.2 today ? Blood cultures negative along with C diff and stool cultures Plan: -Pending transfer ? Continue Flagyl and ciprofloxacin [12/10/2024-] ?Continue IV fluids ?IV Protonix ? GI consulted, appreciate recommendations ? Continue to monitor #QTc prolongation ? Patient was noted to have continued prolongation on 12/11/2024 ? EKG yesterday on 12/12/2024 did not show any QTc prolongation. Plan: ? Will repeat EKG today #Electrolyte imbalance #Hypokalemia, resolved #Hx of hypertension #Hx of anxiety ? Continue Xanax and paroxetine ? Patient's blood pressure has been on the softer end therefore we will hold all antihypertensive medication for now Disposition: Patient admitted to telemetry, pending bed availability. Diet: NPO GI prophylaxis: not indicated DVT prophylaxis: SCDs Code:Full Case disclosed with Attending Dr. Garcia and My senior Dr. Fournier PGY3. Joe Valentine PGY1 Attending Provider Attestation/Addendum I reviewed labs, imaging, EKG, home medications and prior available records. Face to face evaluation was performed by me. I have personally examined the patient and discussed assessment and plan with the IM team. I reviewed the resident note and agree with the plan with exceptions as below. Acute blood loss anemia Upper GI bleed History of gastric bypass surgery Breast cancer on chemotherapy Status post multiple PRBC transfusions Status post EGD that showed the bleeding ulcer from the anastomosis site of the bypass. Discussed with GI: Recommended evaluation for transfer for embolization versus revision of the anastomosis site. Continue Protonix drip. Discussed with transfer center and surgery at [facility]: Given that her hemoglobin is stable and no more bloody bowel movements, recommended conservative management and elective reversion of the anastomosis site. Discussed again with GI: Will plan for repeat EGD on 12/14 Continue ciprofloxacin/Flagyl Monitor H&H: Stable
--- NOTE | 2024-12-13 11:39 | EKG_ITS ---
[facility] Test Date: 2024-12-13 Pat Name: ZAFAR MONSON Department: Room: S274A Gender: Female Utility Repairer: HAYLEE : 1975 Requested By: Joe Valentine Order Number: [id number] Reading MD: Joe Valentine Measurements Intervals [place] Rate: 99 P: 56 IL: 119 QRS: 41 QRSD: 86 T: 47 QT: 340 QTc: 437 Interpretive Statements SINUS RHYTHM WITH SHORT IL INTERVAL NONSPECIFIC T-WAVE ABNORMALITY Compared to ECG 12/10/2024 20:06:06 Short IL interval now present Sinus tachycardia no longer present T-wave abnormality still present /store/S0/[id number].pdf
[2024-12-13] MEDS: PARoxetine HCL 10 MG TABLET PO (12:08)
[2024-12-13 13:08] LABS: Hematocrit 21.2 % (36.0-46.0)
[2024-12-13 13:15] LABS: Hemoglobin 7.6 g/dL (12.0-16.0)
--- NOTE | 2024-12-13 15:37 | PC.CM ---
Addendum entered by Radha Cha RN 12/13/24 17:08: I received a call back from [facility] and they stated they will be canceling the request on their end. I called Dr. Garcia and he agreed that the transfer request could be canceled and not on hold. Addendum entered by Radha Cha RN 12/13/24 16:34: I spoke to [facility] and to Dr. Garcia. Patients transfer has been placed on hold for today. Dr. Garcia will reach out to our GI for consult. I will continue to follow to assist with residual needs. Original Note: [id number] I received a call from [facility] and they wanted to speak to the attending. I provided the number to Dr. Garcia. 1000 I spoke to [facility] and they stated we are still waiting for a bed at [facility].
[2024-12-13] MEDS: HYDROcodone/APAP 5/325 TABLET 1 TAB PO (18:32)
--- NOTE | 2024-12-13 19:28 | PD.IMPROG ---
Documentation for date of: 12/13/24 Subjective Subjective Interval history: Patient evaluated Hemoglobin hematocrit 7.6 and 21.2 As there is no active bleeding at the moment I got a call I think from the cancer center that the transfer has been canceled because patient is stable which I totally disagree with I will clarify that in the morning Keep patient n.p.o. midnight tonight and will endoscope the patient tomorrow morning under MAC The patient is still on the waiting list for a bed then but only for a repeat endoscopy Exam Vital Signs Temp Pulse Resp BP Pulse Ox O2 Del Method O2 Flow Rate 99.2 F 109 H 16 120/71 93 L Room Air 2 12/13/24 08:00 12/13/24 16:00 12/13/24 08:00 12/13/24 08:00 12/13/24 08:00 12/13/24 08:00 12/12/24 01:19 Objective Labs 12/13/24 12:45 12/13/24 04:40 Labs: Laboratory Results - last 24 hr 12/10/24 12/12/24 12/13/24 20:10 20:47 00:42 WBC RBC Hgb 7.7 L 7.2 L Hct 21.3 L* 20.0 L* MCV MCH MCHC RDW Std Deviation Plt Count Neut % (Auto) Lymph % (Auto) [place] % (Auto) Eos % (Auto) Baso % (Auto) Neut # (Auto) Lymph # (Auto) [place] # (Auto) Eos # (Auto) Baso # (Auto) Immature Gran # (Auto) Absolute Nucleated RBC Immature Gran % Nucleated RBC % Sodium Potassium Chloride Carbon Dioxide Anion Gap BUN Creatinine Estim Creat Clear Calc eGFR BUN/Creatinine Ratio Glucose Calculated Osmolality Calcium Magnesium Blood Type A Negative Antibody Screen NEGATIVE Crossmatch See Detail Blood Bank Wristband ID Yes 12/13/24 12/13/24 04:40 12:45 WBC 20.2 H D RBC 2.57 L Hgb 7.6 L 7.6 L Hct 21.6 L* 21.2 L* MCV 84 MCH 29.6 MCHC 35.2 RDW Std Deviation 44.2 Plt Count 92 L Neut % (Auto) 84 H Lymph % (Auto) 10 [place] % (Auto) 4 Eos % (Auto) 0 Baso % (Auto) 0 Neut # (Auto) 17.1 H Lymph # (Auto) 2.1 [place] # (Auto) 0.8 Eos # (Auto) 0.1 Baso # (Auto) 0.0 Immature Gran # (Auto) 0.19 H Absolute Nucleated RBC 0.02 H Immature Gran % 1 H Nucleated RBC % 0 Sodium 144 Potassium 3.1 L D Chloride 109 H Carbon Dioxide 25.9 Anion Gap 9 BUN 7 L Creatinine 0.5 L Estim Creat Clear Calc 132.2 eGFR > 60 BUN/Creatinine Ratio 14 Glucose 93 Calculated Osmolality 284 Calcium 7.9 L Magnesium 1.5 L Blood Type Antibody Screen Crossmatch Blood Bank Wristband ID Impressions Impression: # Anastomotic site ulcer as a cause of bleeding continue conservative management Assessment & Plan A&P Narrative # Hematemesis # Bloody diarrhea # Abnormal CT scan of the abdomen pelvis showing pancolitis Differential diagnosis include Infectious enterocolitis versus C. difficile enterocolitis Breast carcinoma undergoing roseanna adjuvant chemotherapy last dose November 29 Plan stool culture and sensitivity stool for C. difficile by PCR Stool for fecal calprotectin ANCA antibody Schedule fiberoptic esophagogastroduodenoscopy with possible therapeutic intervention possible biopsy under intravenous moderate sedation for evaluation of hematemesis I will wait for the stool culture and sensitivity as well as C. difficile before scheduling a colonoscopy for pancolitis Thank you once again for the opportunity to participate in the care of this patient Time Spent With Patient Time: Total time spent is greater than 50% in coordination of care (as documented) at patient's floor/unit and/or counseling patient:
[2024-12-13] MEDS: BALSAM PERU/CASTOR OIL (Venelex) 60 GM TUBE TOP (21:26)
[2024-12-13] MEDS: ALPRazoLAM 0.25 MG TABLET 1 MG PO (21:54)
[2024-12-14] VITALS (7 sets, daily range): BP systolic 116–129; BP diastolic 71–81; PULSE 85–110; RESP 15–20; TEMP 36.3–37.5; O2SAT 96–100; BMI 27.3
[2024-12-14] MEDS: PANTOPRAZOLE/NS 80MG IV PREMIX 80 MG/100 ML BAG 10 MG IV ×2 (04:51→14:19)
[2024-12-14] MEDS: metroNIDAZOLE/NS 500 MG IVPB 500 MG/100 ML BAG 200 MG IV ×3 (05:00→21:42)
[2024-12-14 05:23] LABS: Basophils % (Auto) 0 % (0-2.5); Eosinophils % (Auto) 0 % (0-10); Hemoglobin 7.4 g/dL (12.0-16.0); Immature Granulocytes % (Auto) 1 % (0-0); Immature Granulocytes Auto 0.11 Thou/mm3 (0.00-0.00); Lymphocytes # (Auto) 1.2 Thou/mm3 (1.0-4.8); Lymphocytes % (Auto) 8 % (10-50); Mean Corpuscular HGB Conc 35.2 g/dl (31.0-37.0); Mean Corpuscular Hemoglobin 29.5 pg (25.0-35.0); Mean Corpuscular Volume 84 fL (80-100); Monocytes # (Auto) 0.8 Thou/mm3 (0.0-0.8); Monocytes % (Auto) 5 % (0-12); Neutrophils # (Auto) 13.1 Thou/mm3 (1.8-7.7); Neutrophils % (Auto) 86 % (37-80); Nucleated Red Blood Cell # 0.02 Thou/mm3 (0.00-0.00); Nucleated Red Blood Cell % 0 /100 WBC (0); Platelet Count 138 Thou/mm3 (140-440); RDW Standard Deviation 42.5 fL (36.4-46.3); Red Blood Count 2.51 Miln/mm3 (4.00-5.20); White Blood Count 15.2 Thou/mm3 (3.6-11.0)
[2024-12-14 06:11] LABS: Anion Gap 10 (7-16); BUN/Creatinine Ratio 10 Ratio (12-20); Blood Urea Nitrogen 5 mg/dL (9-23); Carbon Dioxide 26.9 mMol/L (20.0-31.0); Chloride 106 mMol/L (98-107); Creatinine (Component) 0.5 mg/dL (0.6-1.3); Estimated Creatinine Clearance 129.3 mL/min (>60); Glucose 95 mg/dL (74-106); Magnesium 1.8 mg/dL (1.6-2.6); Osmolality,Calculated 282 (275-295); Potassium 3.4 mMol/L (3.4-5.1); Sodium 143 mMol/L (136-145); eGFR > 60 See Note
--- NOTE | 2024-12-14 09:34 | ESPR_ITS ---
Documentation for date of: 12/14/24 Subjective Subjective Interval history: Patient evaluated Dropping hemoglobin to 7.4 that means the patient is still bleeding I talked to Dr. Octavio Banda chief of surgery at [facility] He has accepted the patient As [facility] has no bed available I talked to case management Radha and she will contact [facility] and get the process started for transfer Exam Vital Signs Temp Pulse Resp BP Pulse Ox O2 Del Method O2 Flow Rate 98.8 F 103 H 20 124/71 99 Room Air 2 12/14/24 08:00 12/14/24 08:00 12/14/24 08:00 12/14/24 08:00 12/14/24 08:00 12/14/24 08:00 12/12/24 01:19 Objective Labs 12/14/24 04:49 12/14/24 04:49 Labs: Laboratory Results - last 24 hr 12/10/24 12/13/24 12/14/24 20:10 12:45 04:49 WBC 15.2 H D RBC 2.51 L Hgb 7.6 L 7.4 L Hct 21.2 L* 21.0 L* MCV 84 MCH 29.5 MCHC 35.2 RDW Std Deviation 42.5 Plt Count 138 L D Neut % (Auto) 86 H Lymph % (Auto) 8 L [place] % (Auto) 5 Eos % (Auto) 0 Baso % (Auto) 0 Neut # (Auto) 13.1 H Lymph # (Auto) 1.2 [place] # (Auto) 0.8 Eos # (Auto) 0.0 Baso # (Auto) 0.0 Immature Gran # (Auto) 0.11 H Absolute Nucleated RBC 0.02 H Immature Gran % 1 H Nucleated RBC % 0 Sodium 143 Potassium 3.4 Chloride 106 Carbon Dioxide 26.9 Anion Gap 10 BUN 5 L Creatinine 0.5 L Estim Creat Clear Calc 129.3 eGFR > 60 BUN/Creatinine Ratio 10 L Glucose 95 Calculated Osmolality 282 Calcium 8.0 L Magnesium 1.8 Crossmatch See Detail Impressions Impression: # Acute upper GI bleed with massive ulceration at the anastomotic site [id number] For higher level of care patient is to be transferred for possible surgical intervention if she opens up again Endoscopically she can be fixed Assessment & Plan A&P Narrative # Hematemesis # Bloody diarrhea # Abnormal CT scan of the abdomen pelvis showing pancolitis Differential diagnosis include Infectious enterocolitis versus C. difficile enterocolitis Breast carcinoma undergoing roseanna adjuvant chemotherapy last dose November 29 Plan stool culture and sensitivity stool for C. difficile by PCR Stool for fecal calprotectin ANCA antibody Schedule fiberoptic esophagogastroduodenoscopy with possible therapeutic intervention possible biopsy under intravenous moderate sedation for evaluation of hematemesis I will wait for the stool culture and sensitivity as well as C. difficile before scheduling a colonoscopy for pancolitis Thank you once again for the opportunity to participate in the care of this patient Time Spent With Patient Time: Total time spent is greater than 50% in coordination of care (as documented) at patient's floor/unit and/or counseling patient:
[2024-12-14] MEDS: CIPROFLOXACIN/D5w 400 MG IVPB 400 MG/200 ML BAG 200 MG IV ×2 (10:00→20:24)
[2024-12-14] MEDS: RINGERS LACTATED 1000 ML 1,000 ML 70 ML IV (10:01)
[2024-12-14] MEDS: BALSAM PERU/CASTOR OIL (Venelex) 60 GM TUBE TOP (10:01)
[2024-12-14] MEDS: PARoxetine HCL 10 MG TABLET PO (10:18)
--- NOTE | 2024-12-14 10:55 | PD.RESPRO ---
Documentation for date of: 12/14/24 Subjective Subjective Interval history: Patient was seen at bedside this morning. No overnight events. Patient has not had any bloody bowel movements today or yesterday. Patient will undergo an EGD today and as per GI specialist will try and transfer the patient to [facility]. Patient also states he had some right arm pain likely due to IV line infiltration, will start patient on [place] as needed for pain. No other complaints at this time. Will continue to monitor for any signs of bleeding or drop in hemoglobin. Exam Vital Signs Temp Pulse Resp BP Pulse Ox O2 Del Method O2 Flow Rate 98.8 F 103 H 20 124/71 99 Room Air 2 12/14/24 08:00 12/14/24 08:00 12/14/24 08:00 12/14/24 08:00 12/14/24 08:00 12/14/24 08:00 12/12/24 01:19 Narrative Exam General: A/O x3, no acute distress, well-nourished, well-developed Eyes: PERRL, EOMI. Anicteric, vision grossly intact. Ears: No ear pain, no ear discharge, Hearing grossly intact. Nose: No nasal discharge. Mouth/Throat: Moist mucous membranes, no redness, no lesions. Neck: Neck supple, non-tender, no cervical lymphadenopathy. Lungs: Clear KIM to auscultation and percussion, No accessory muscle use. Cardio: Normal S1/S2, regular rhythm, no murmurs, no JVD or carotid bruits. Abdomen: Soft, non-tender, no palpable masses, peristalsis present, no guarding or rebound. Extremities: Symmetrical, no significant deformities, no peripheral edema , non-tender, peripheral pulses presents. Skin: No rashes, no lesions, warm to touch. Neuro: No focal neurological deficits. motor and sensory intact. Psych: Cooperative, appropriate mood and effect. Objective Labs 12/14/24 04:49 12/14/24 04:49 Labs: Laboratory Results - last 24 hr 12/10/24 12/13/24 12/14/24 20:10 12:45 04:49 WBC 15.2 H D RBC 2.51 L Hgb 7.6 L 7.4 L Hct 21.2 L* 21.0 L* MCV 84 MCH 29.5 MCHC 35.2 RDW Std Deviation 42.5 Plt Count 138 L D Neut % (Auto) 86 H Lymph % (Auto) 8 L [place] % (Auto) 5 Eos % (Auto) 0 Baso % (Auto) 0 Neut # (Auto) 13.1 H Lymph # (Auto) 1.2 [place] # (Auto) 0.8 Eos # (Auto) 0.0 Baso # (Auto) 0.0 Immature Gran # (Auto) 0.11 H Absolute Nucleated RBC 0.02 H Immature Gran % 1 H Nucleated RBC % 0 Sodium 143 Potassium 3.4 Chloride 106 Carbon Dioxide 26.9 Anion Gap 10 BUN 5 L Creatinine 0.5 L Estim Creat Clear Calc 129.3 eGFR > 60 BUN/Creatinine Ratio 10 L Glucose 95 Calculated Osmolality 282 Calcium 8.0 L Magnesium 1.8 Crossmatch See Detail Quality Measures Quality Measures VTE prophylaxis Assessment & Plan Assessment Current Active Medications: Generic Name Dose Route Start Last Admin Trade Name Freq PRN Reason Stop Dose Admin Acetaminophen 650 mg 12/10/24 21:35 Acetaminophen 325 Mg Tablet PO 01/09/25 21:34 Q6H PRN Fever >101.5 Alprazolam 1 mg 12/10/24 21:38 12/13/24 21:54 Alprazolam 0.25 Mg Tablet PO 12/16/24 08:59 1 mg BID PRN Administration ANXIETY Balsam [place] Oil 0 gm 12/11/24 21:00 12/14/24 10:01 Balsam [place] Oil (Venelex) 60 Gm Tube TOP 01/10/25 20:59 1 applicatio BID DWAYNE Administration Metronidazole 500 mg in 100 mls @ 200 mls/hr 12/10/24 22:00 12/14/24 05:00 Flagyl 500 Mg Iv IV 12/17/24 21:59 200 mls/hr Q8HR DWAYNE Administration Ciprofloxacin/Dextrose 400 mg in 200 mls @ 200 mls/hr 12/11/24 09:00 12/14/24 10:00 Cipro Ivpb IV 12/18/24 08:59 200 mls/hr Q12HR DWAYNE Administration Pantoprazole Sodium 80 mg in 100 mls @ 10 mls/hr 12/12/24 02:43 12/14/24 04:51 Protonix/Ns 80mg Iv Premix IV 12/15/24 00:42 10 mls/hr Q10H DWAYNE Administration Lactated Ringer's 1,000 mls @ 70 mls/hr 12/13/24 03:11 12/14/24 10:01 Lactated Ringers IV 01/12/25 03:10 70 mls/hr .[id number] DWAYNE Administration Paroxetine HCl 10 mg 12/13/24 10:45 12/14/24 10:18 Paroxetine Hcl 10 Mg Tablet PO 01/12/25 10:44 10 mg QDAY DWAYNE Administration Plan 49-year-old female with past medical history of breast cancer status post neoadjuvant chemotherapy (first section on November 29, 2024), hypertension, and anxiety was admitted to the hospital on 12/10/2024 due to a syncopal episode likely in the setting of acute blood loss anemia secondary to GI bleed with hematochezia and hematemesis. #Syncopal episodes #Acute blood loss anemia #GI bleed, gastric bypass anastomosis site #Hematochezia #Hematemesis #Leukocytosis #Esophagitis #Colitis #Breast cancer, on chemotherapy (first chemo on 11/29/2024) ? Patient came in with complaints of bloody diarrhea as well as his bloody emesis since Tuesday. Has been having about 20 bowel movements per day ?Patient got her first dose of chemotherapy on November 29, 2024 and then experienced some diarrhea, but these were nonbloody initially. ?CT abdomen/pelvis showed colitis nonspecific pattern ? Patient got 3 units of PRBC and 3 L of LR in the ED. ?Patient had EGD done on 12/11/2024 which showed esophagitis and bleeding from gastric bypass anastomosis site. ? Hemoglobin 7.4 today, no bloody BM today ? WBC 20.2 today ? Blood cultures negative along with C diff and stool cultures Plan: -Pending EGD and possible transfer ? Continue Flagyl and ciprofloxacin [12/10/2024-] ?Continue IV fluids ?IV Protonix ? GI consulted, appreciate recommendations ? Continue to monitor #QTc prolongation ? Patient was noted to have continued prolongation on 12/11/2024 Plan: ? Will continue to monitor #Electrolyte imbalance #Hypokalemia, resolved #Hx of hypertension #Hx of anxiety ? Continue Xanax and paroxetine ? Patient's blood pressure has been on the softer end therefore we will hold all antihypertensive medication for now Disposition: Patient admitted to telemetry, pending EGD and possible transfer. Diet: NPO GI prophylaxis: not indicated DVT prophylaxis: SCDs Code:Full Case disclosed with Attending Dr. Radha Valentine PGY1 Attending Provider Attestation/Addendum I reviewed labs, imaging, EKG, home medications and prior available records. Face to face evaluation was performed by me. I have personally examined the patient and discussed assessment and plan with the IM team. I reviewed the resident note and agree with the plan with exceptions as below. Acute blood loss anemia Upper GI bleed History of gastric bypass surgery Breast cancer on chemotherapy Thrombocytopenia Status post multiple PRBC transfusions Status post EGD that showed the bleeding ulcer from the anastomosis site of the bypass. Discussed with GI: Recommended evaluation for transfer for embolization versus revision of the anastomosis site. Continue Protonix drip. Discussed with transfer center and [facility]: Given that her hemoglobin is stable and no more bloody bowel movements, recommended conservative management and elective reversion of the anastomosis site. Discussed again with GI: Initially planned for repeat EGD however given that the patient is high risk of rebleed, Dr. Bay contacted [facility] Dr. Garcia who accepted the patient for transfer. Transfer nurse was notified and is working on the case Continue ciprofloxacin/Flagyl Monitor H&H: Stable Monitor platelet level: Stable
[2024-12-14] MEDS: HYDROcodone/APAP 5/325 TABLET 1 TAB PO ×2 (11:27→19:18)
--- NOTE | 2024-12-14 15:45 | PC.CM ---
Addendum entered by Radha Cha RN 12/14/24 19:03: I initiated a transfer with [facility] and and I faxed over information. Packet with CD on transfer nurse desk. Charge nurse updated. Original Note: I received a call from Dr. Bay and I updated him on the fact that patient was decided for tranfer at [facility]. Dr. Bay called his colleague at [facility] Dr. Octavio Banda. He states Dr. Banda accepted patient and he want me to transfer patient to [facility]. I let him know that I would need to work with the transfer center at [facility] and more than likely patient will need authorization. pt needs to be transferred for GI bleed need GI services. Patient is bleeding from anastomotic site of the Rei-en-Y gastrojejunostomy.
[2024-12-14] MEDS: ALPRazoLAM 0.25 MG TABLET 1 MG PO (21:44)
[2024-12-15] VITALS (18 sets, daily range): BP systolic 112–129; BP diastolic 64–78; PULSE 76–106; RESP 13–22; TEMP 36.2–37.3; O2SAT 96–100; BMI 27.3
[2024-12-15] MEDS: RINGERS LACTATED 1000 ML 1,000 ML 70 ML IV ×2 (01:30→16:30)
[2024-12-15] MEDS: metroNIDAZOLE/NS 500 MG IVPB 500 MG/100 ML BAG 200 MG IV ×3 (05:34→22:40)
[2024-12-15 06:32] LABS: Basophils % (Auto) 0 % (0-2.5); Eosinophils # (Auto) 0.1 Thou/mm3 (0.0-0.5); Eosinophils % (Auto) 0 % (0-10); Immature Granulocytes % (Auto) 1 % (0-0); Immature Granulocytes Auto 0.07 Thou/mm3 (0.00-0.00); Lymphocytes % (Auto) 8 % (10-50); Mean Corpuscular Hemoglobin 29.3 pg (25.0-35.0); Mean Corpuscular Volume 86 fL (80-100); Monocytes # (Auto) 0.7 Thou/mm3 (0.0-0.8); Monocytes % (Auto) 6 % (0-12); Neutrophils # (Auto) 10.5 Thou/mm3 (1.8-7.7); Neutrophils % (Auto) 85 % (37-80); Nucleated Red Blood Cell % 0 /100 WBC (0); Platelet Count 180 Thou/mm3 (140-440); RDW Standard Deviation 43.1 fL (36.4-46.3); Red Blood Count 2.32 Miln/mm3 (4.00-5.20); White Blood Count 12.3 Thou/mm3 (3.6-11.0)
[2024-12-15 06:44] LABS: Hemoglobin 6.8 g/dL (12.0-16.0)
[2024-12-15 07:05] LABS: Anion Gap 9 (7-16); BUN/Creatinine Ratio 10 Ratio (12-20); Blood Urea Nitrogen < 5 mg/dL (9-23); Calcium 7.9 mg/dL (8.3-10.6); Carbon Dioxide 27.3 mMol/L (20.0-31.0); Chloride 107 mMol/L (98-107); Creatinine (Component) 0.5 mg/dL (0.6-1.3); Estimated Creatinine Clearance 131.5 mL/min (>60); Glucose 95 mg/dL (74-106); Magnesium 1.6 mg/dL (1.6-2.6); Osmolality,Calculated 282 (275-295); Potassium 3.4 mMol/L (3.4-5.1); Sodium 143 mMol/L (136-145); eGFR > 60 See Note
[2024-12-15] MEDS: HYDROcodone/APAP 5/325 TABLET 1 TAB PO ×3 (08:05→20:20)
[2024-12-15] MEDS: PARoxetine HCL 10 MG TABLET PO (08:55)
[2024-12-15] MEDS: CIPROFLOXACIN/D5w 400 MG IVPB 400 MG/200 ML BAG 200 MG IV ×2 (08:55→20:21)
--- NOTE | 2024-12-15 09:54 | PC.CC ---
Addendum entered by Lizzeth Conway RN 12/15/24 10:28: 1028 called Shantel with [employer] at [phone] to expedite the auth process and left VM. Addendum entered by Lizzeth Conway RN 12/15/24 10:26: 1026 I submitted request for insurance auth online at [employer] for [facility]. Addendum entered by Lizzeth Conway RN 12/15/24 10:03: Accepted by Dr. Octavio Banda. Transfer dx GI bleed, source of bleeding from anastomotic site of the Rei-en-Y gastrojejunostomy. Original Note: 0949 called [facility] TC, spoke to Mariely for transfer status. She informed me that pt is accepted but now pending financial clearance/ auth for transfer. I asked her for accepting info, NPI and Tax ID. She transferred me to her financial counselor. I spoke to Jesus. He stated pt is accepted at [facility] . Tax ID [id number], . Accepted by Dr. Banda, . He also gave me his direct number once auth is obtained which is [phone], [phone].
--- NOTE | 2024-12-15 13:14 | PD.RESPRO ---
Documentation for date of: 12/15/24 Subjective Subjective Interval history: Patient seen at bedside. No acute problems overnight. She is doing well this morning. Has some swelling from infiltrated IV on RUE, conservatively managed with elevation and compress. Low appetite due to cancer but is tolerating clear liquid diet. Hemoglobin this morning 6.8. Patient denies bloody bowel movement. 1 unit of PRBC ordered with 1 FFP and 1 platelet. Pending insurance auth for transfer to [facility]. Exam Vital Signs Temp Pulse Resp BP Pulse Ox O2 Del Method O2 Flow Rate 98.1 F 91 20 122/69 96 Room Air 2 12/15/24 08:00 12/15/24 08:00 12/15/24 08:00 12/15/24 08:00 12/15/24 08:00 12/15/24 08:00 12/12/24 01:19 Narrative Exam Constitutional: NAD. Pleasant, awake, alert. HEENT: NCAT. Vision grossly intact. Mucous membranes moist. Respiratory: CTAB bilaterally. Cardiac: RRR. Abdomen: Non-distended. MSK: RUE swelling Skin: Warm, dry, intact. No obvious lesions. Neuro: Motor and sensation grossly intact. Psychiatric: Appropriate mood and affect. Objective Labs 12/15/24 05:39 12/15/24 05:39 Labs: Laboratory Results - last 24 hr 12/15/24 12/15/24 05:39 11:12 WBC 12.3 H RBC 2.32 L Hgb 6.8 L* Hct 20.0 L* MCV 86 MCH 29.3 MCHC 34.0 RDW Std Deviation 43.1 Plt Count 180 D Neut % (Auto) 85 H Lymph % (Auto) 8 L [place] % (Auto) 6 Eos % (Auto) 0 Baso % (Auto) 0 Neut # (Auto) 10.5 H Lymph # (Auto) 1.0 [place] # (Auto) 0.7 Eos # (Auto) 0.1 Baso # (Auto) 0.0 Immature Gran # (Auto) 0.07 H Absolute Nucleated RBC 0.00 Immature Gran % 1 H Nucleated RBC % 0 Sodium 143 Potassium 3.4 Chloride 107 Carbon Dioxide 27.3 Anion Gap 9 BUN < 5 L Creatinine 0.5 L Estim Creat Clear Calc 131.5 eGFR > 60 BUN/Creatinine Ratio 10 L Glucose 95 Calculated Osmolality 282 Calcium 7.9 L Magnesium 1.6 Blood Type A Negative Antibody Screen NEGATIVE Crossmatch See Detail Blood Bank Wristband ID Yes Blood Bank Comment FFP Ready Quality Measures Quality Measures VTE prophylaxis Assessment & Plan Assessment Current Active Medications: Generic Name Dose Route Start Last Admin Trade Name Freq PRN Reason Stop Dose Admin Acetaminophen 650 mg 12/10/24 21:35 Acetaminophen 325 Mg Tablet PO 01/09/25 21:34 Q6H PRN Fever >101.5 Hydrocodone Bitart/Acetaminophen 1 tab 12/14/24 11:12 12/15/24 08:05 Hydrocodone/Apap 5/325 Tablet PO 12/19/24 11:11 1 tab Q4HR PRN Administration PAIN Alprazolam 1 mg 12/10/24 21:38 12/14/24 21:44 Alprazolam 0.25 Mg Tablet PO 12/16/24 08:59 1 mg BID PRN Administration ANXIETY Balsam [place] Oil 0 gm 12/11/24 21:00 12/15/24 08:57 Balsam [place] Oil (Venelex) 60 Gm Tube TOP 01/10/25 20:59 Not Given BID DWAYNE Metronidazole 500 mg in 100 mls @ 200 mls/hr 12/10/24 22:00 12/15/24 05:34 Flagyl 500 Mg Iv IV 12/17/24 21:59 200 mls/hr Q8HR DWAYNE Administration Ciprofloxacin/Dextrose 400 mg in 200 mls @ 200 mls/hr 12/11/24 09:00 12/15/24 08:55 Cipro Ivpb IV 12/18/24 08:59 200 mls/hr Q12HR DWAYNE Administration Lactated Ringer's 1,000 mls @ 70 mls/hr 12/13/24 03:11 12/15/24 01:30 Lactated Ringers IV 01/12/25 03:10 70 mls/hr .[id number] DWAYNE Administration Pantoprazole Sodium 40 mg 12/15/24 21:00 Pantoprazole Inj 40 Mg Vial IV 01/14/25 20:59 BID DWAYNE Paroxetine HCl 10 mg 12/13/24 10:45 12/15/24 08:55 Paroxetine Hcl 10 Mg Tablet PO 01/12/25 10:44 10 mg QDAY DWAYNE Administration Sucralfate 1 gm 12/15/24 11:30 Sucralfate 1 Gm Tablet PO 01/14/25 11:29 AC DWAYNE Plan 49-year-old female with past medical history of breast cancer status post neoadjuvant chemotherapy (first section on November 29, 2024), gastric bypass 15 years ago, hypertension, and anxiety was admitted to the hospital on 12/10/2024 due to a syncopal episode and admitted for symptomatic acute blood loss anemia due to gastric ulcer around the gastric bypass anastomosis siste. #Acute blood loss anemia due to acute upper GIB #GI bleed, gastric bypass anastomosis site Patient present syncope, progressive bloody diarrhea, hematochezia and hematemsis. Hb on admission was 5.7. CT abdomen/pelvis showed colitis nonspecific pattern, so patient was empirically started on Flagyl and Cipro for coli. EGD done on 12/11/2024 which showed esophagitis and bleeding from ulcer at gastric bypass anastomosis site. Patient was briefly upgraded to ICU for closer monitoring. Hemoglobin held steady so patient was downgraded. Transfer was initiated for possible CTA embolization and gastric repair. Patient accepted at [facility] with original bariatric surgeons however facility at capacity. Patient accepted at [facility], pending insurance authorization. She hemoglobin continues to drop slowly. She has recieved a total of 5 units of PRBC Plan - Transfuse 1 unit PRBC + 1 FFP + 1 platelet - Follow up post-transfusion H/H - Transfer in process - GI following - Sucralfate - Protonix 40 BID #Breast cancer, on chemotherapy (first chemo on 11/29/2024) - Follow up outpatient #Hx of anxiety ? Continue Xanax and paroxetine #Hx of hypertension Holding home meds due to soft BP #QTc prolongation Patient was noted to have continued prolongation on 12/11/2024 - Avoid QT proloning agents #Electrolyte imbalance Health Maintenance Disposition: Patient admit for UGIB, pending transfer Diet: CLD GI prophylaxis: protonix DVT prophylaxis: SCDs Code:Full I have reviewed and discussed the patient's care with my attending, Dr. Zachery Fournier MD PGY-3
[2024-12-15] MEDS: SUCRALFATE 1 GM TABLET PO ×2 (13:49→16:31)
--- NOTE | 2024-12-15 16:06 | PC.NURSE ---
Patient complaining of (R) upper arm pain. Pt previously had an IV to the (R) AC which infiltrated and was removed. Warm and cold compresses applied to arm but per patient have not helped relieve the pain. MD Bernardo made aware
--- NOTE | 2024-12-15 18:14 | ESPR_ITS ---
Documentation for date of: 12/15/24 Subjective Subjective Interval history: Patient evaluated Hemoglobin hematocrit 6.8 and 20.0 Repeat hemoglobin hematocrit is pending No hematemesis at the moment Exam Vital Signs Temp Pulse Resp BP Pulse Ox O2 Del Method O2 Flow Rate 98.3 F 88 13 118/73 99 Room Air 2 12/15/24 16:57 12/15/24 16:57 12/15/24 16:57 12/15/24 16:57 12/15/24 16:57 12/15/24 16:00 12/12/24 01:19 Objective Labs 12/15/24 05:39 12/15/24 05:39 Labs: Laboratory Results - last 24 hr 12/15/24 12/15/24 05:39 11:12 WBC 12.3 H RBC 2.32 L Hgb 6.8 L* Hct 20.0 L* MCV 86 MCH 29.3 MCHC 34.0 RDW Std Deviation 43.1 Plt Count 180 D Neut % (Auto) 85 H Lymph % (Auto) 8 L [place] % (Auto) 6 Eos % (Auto) 0 Baso % (Auto) 0 Neut # (Auto) 10.5 H Lymph # (Auto) 1.0 [place] # (Auto) 0.7 Eos # (Auto) 0.1 Baso # (Auto) 0.0 Immature Gran # (Auto) 0.07 H Absolute Nucleated RBC 0.00 Immature Gran % 1 H Nucleated RBC % 0 Sodium 143 Potassium 3.4 Chloride 107 Carbon Dioxide 27.3 Anion Gap 9 BUN < 5 L Creatinine 0.5 L Estim Creat Clear Calc 131.5 eGFR > 60 BUN/Creatinine Ratio 10 L Glucose 95 Calculated Osmolality 282 Calcium 7.9 L Magnesium 1.6 Blood Type A Negative Antibody Screen NEGATIVE Crossmatch See Detail Blood Bank Wristband ID Yes Blood Bank Comment PLATP Ready Impressions Impression: # Hematemesis # Melena # Acute posthemorrhagic anemia with endoscopic intervention most likely the anastomotic site ulceration Underlying lesion fully cannot be fully asserted as there was a brisk bleeding during the endoscopy Awaiting transfer to [facility] Assessment & Plan A&P Narrative # Hematemesis # Bloody diarrhea # Abnormal CT scan of the abdomen pelvis showing pancolitis Differential diagnosis include Infectious enterocolitis versus C. difficile enterocolitis Breast carcinoma undergoing roseanna adjuvant chemotherapy last dose November 29 Plan stool culture and sensitivity stool for C. difficile by PCR Stool for fecal calprotectin ANCA antibody Schedule fiberoptic esophagogastroduodenoscopy with possible therapeutic intervention possible biopsy under intravenous moderate sedation for evaluation of hematemesis I will wait for the stool culture and sensitivity as well as C. difficile before scheduling a colonoscopy for pancolitis Thank you once again for the opportunity to participate in the care of this patient Time Spent With Patient Time: Total time spent is greater than 50% in coordination of care (as documented) at patient's floor/unit and/or counseling patient:
[2024-12-15 19:17] LABS: Hematocrit 23.2 % (36.0-46.0)
[2024-12-15] MEDS: PANTOPRAZOLE 40 MG TABLET PO (20:21)
[2024-12-15] MEDS: ALPRazoLAM 0.25 MG TABLET 1 MG PO (22:38)
[2024-12-16] VITALS: BP 112/71; PULSE 86; PULSE 90; RESP 17; TEMP 36.3; O2SAT 95
--- NOTE | 2024-12-16 | XR_ITS ---
Examination: Duplex scan of the upper extremity, unilateral right Date and time of exam: December 16, 2024 0109 hrs. Indications: Right arm swelling beginning 2 days ago Technique: Duplex scan of the extremity veins using B-mode/grayscale imaging and Doppler spectral analysis and color flow Attention is directed to internal echogenicity, compression and augmentation involving these veins, color flow assessment, spectral analysis Findings: Positive for nonocclusive thrombus in the right basilic vein as well as the superficial right cephalic vein Impression: Positive for nonocclusive thrombus in the right basilic vein as well as the superficial right cephalic vein The jugular, subclavian, axillary, brachial, radial and ulnar veins are open
[2024-12-16] MEDS: HYDROcodone/APAP 5/325 TABLET 1 TAB PO ×4 (01:54→20:31)
--- NOTE | 2024-12-16 03:02 | PC.NURSE ---
received call from tele-IR with results from pt. ultraosund of right arm thrombus in right cephalic and basilic veins, notified md BARRETORESH he will review pt's chart. radiologist AISHWARYA BUENROSTRO [phone]
--- NOTE | 2024-12-16 03:04 | PRELIM_ITS ---
Right upper extremity venous Doppler ultrasound. December 16, 2024 0109 hours Clinical history: Suspicious for DVT, swelling. Technique: Duplex scan of the right arm performed utilizing, 2D grayscale imaging, Doppler spectral analysis and color flow Doppler with compression. Comparison: No prior study is available for comparison. Findings: Nonocclusive thrombus in the right cephalic vein and occlusive thrombus in the basilic vein. The internal jugular, subclavian, axillary, brachial, radial and ulnar veins are patent with normal compressibility and Doppler flow. Impression: Thrombosis of the right cephalic and basilic veins. Discussion Details: Results were verbally communicated to Gayle Rodas RN at 05.58 AM ET on 16/12/2023 a call back number is provided to facilitate direct Physician to Physician communication. Report Electronically Signed By: Chidi Cheng 12/16/2024 3:03:33 AM [EST]
--- NOTE | 2024-12-16 03:38 | PD.RESEVENT ---
Documentation for date of: 12/16/24 Event Note Event Note: RN called for updated radiology report, upper extremity venous Doppler ultrasound reported as nonocclusive thrombus in Right cephalic vein and occlusive thrombus in the right basilic vein, normal internal jugular, subclavian, and deep veins of the upper extremity. Likely thrombo-phlebitis following iv lines. The pt is admitted for GI bleed and received blood transfusions for acute blood loss anemia, not an ideal candidate for Anticoagulation, Plan: - Conservative measures, cold/warm compresses , limb elevation , removal of iv lines on the affected limb.
[2024-12-16 04:00] VITALS: BP 119/71; PULSE 85; PULSE 88; RESP 15; TEMP 37.7; O2SAT 92
[2024-12-16] MEDS: RINGERS LACTATED 1000 ML 1,000 ML 70 ML IV ×2 (05:43→22:13)
[2024-12-16] MEDS: metroNIDAZOLE/NS 500 MG IVPB 500 MG/100 ML BAG 200 MG IV (05:44)
[2024-12-16] MEDS: SUCRALFATE 1 GM TABLET PO ×3 (07:14→16:45)
[2024-12-16 08:00] VITALS: BP 113/73; PULSE 84; RESP 21; TEMP 36.8; O2SAT 99
[2024-12-16] MEDS: PARoxetine HCL 10 MG TABLET PO (08:33)
[2024-12-16] MEDS: PANTOPRAZOLE 40 MG TABLET PO ×2 (08:34→20:31)
--- NOTE | 2024-12-16 09:24 | PC.CC ---
Addendum entered by Lizzeth Conway RN 12/16/24 09:28: 0927 Unable to speak to [employer] insurance representatives due to weekend. Original Note: 919 I submitted request for auth yesterday at [employer]. Today I called Sanam again with [employer] at [phone] (for [facility]) to expedite the auth process and left VM.
[2024-12-16 10:17] LABS: Basophils % (Auto) 0 % (0-2.5); Eosinophils % (Auto) 0 % (0-10); Hematocrit 21.6 % (36.0-46.0); Immature Granulocytes % (Auto) 0 % (0-0); Immature Granulocytes Auto 0.03 Thou/mm3 (0.00-0.00); Lymphocytes # (Auto) 1.1 Thou/mm3 (1.0-4.8); Lymphocytes % (Auto) 11 % (10-50); Mean Corpuscular HGB Conc 33.8 g/dl (31.0-37.0); Mean Corpuscular Hemoglobin 29.4 pg (25.0-35.0); Mean Corpuscular Volume 87 fL (80-100); Monocytes # (Auto) 0.7 Thou/mm3 (0.0-0.8); Monocytes % (Auto) 8 % (0-12); Neutrophils # (Auto) 7.4 Thou/mm3 (1.8-7.7); Neutrophils % (Auto) 80 % (37-80); Nucleated Red Blood Cell % 0 /100 WBC (0); Platelet Count 245 Thou/mm3 (140-440); RDW Standard Deviation 44.8 fL (36.4-46.3); Red Blood Count 2.48 Miln/mm3 (4.00-5.20); White Blood Count 9.3 Thou/mm3 (3.6-11.0)
[2024-12-16 10:21] LABS: Hemoglobin 7.3 g/dL (12.0-16.0)
[2024-12-16 10:33] LABS: Alanine Aminotransferase 26 U/L (10-49); Albumin, Serum 2.8 gm/dL (3.5-5.0); Albumin/Globulin Ratio 1.8 (1.2-2.2); Alkaline Phosphatase 69 U/L (46-116); Anion Gap 7 (7-16); Aspartate Amino Transferase 15 U/L (0-34); BUN/Creatinine Ratio 10 Ratio (12-20); Bilirubin,Total 0.4 mg/dL (0.3-1.2); Blood Urea Nitrogen < 5 mg/dL (9-23); Carbon Dioxide 30.9 mMol/L (20.0-31.0); Chloride 105 mMol/L (98-107); Creatinine (Component) 0.5 mg/dL (0.6-1.3); Estimated Creatinine Clearance 130.9 mL/min (>60); Globulin 1.6 gm/dL (2.3-3.5); Glucose 113 mg/dL (74-106); Magnesium 1.6 mg/dL (1.6-2.6); Osmolality,Calculated 283 (275-295); Sodium 143 mMol/L (136-145); Total Protein 4.4 gm/dL (5.7-8.2); eGFR > 60 See Note
[2024-12-16 12:00] VITALS: BP 147/96; PULSE 80; PULSE 83; RESP 17; TEMP 36.4; O2SAT 98
[2024-12-16] MEDS: POTASSIUM CHLORIDE 20 mEq TABCR 40 MEQ PO (12:12)
--- NOTE | 2024-12-16 12:41 | PD.RESPRO ---
Documentation for date of: 12/16/24 Subjective Subjective Interval history: Patient was seen at bedside this morning. No overnight events. Patient's hemoglobin today was 7.3 which was a drop from the 8 last night. Will repeat hemoglobin today in the afternoon. Patient was found to have superficial vein thrombosis of the right cephalic vein, will continue with warm compresses for now as chemical anticoagulation is contraindicated at this time due to bleeding. Discontinue patient's antibiotics as there is no concern for infection at this time.. No other complaints at this time still pending insurance authorization for possible transfer. Exam Vital Signs Temp Pulse Resp BP Pulse Ox O2 Del Method O2 Flow Rate 97.6 F 80 17 147/96 H 98 Room Air 2 12/16/24 12:00 12/16/24 12:00 12/16/24 12:00 12/16/24 12:00 12/16/24 12:12/16/24 12:12/12/24 01:19 Narrative Exam General: A/O x3, no acute distress, well-nourished, well-developed Eyes: PERRL, EOMI. Anicteric, vision grossly intact. Ears: No ear pain, no ear discharge, Hearing grossly intact. Nose: No nasal discharge. Mouth/Throat: Moist mucous membranes, no redness, no lesions. Neck: Neck supple, non-tender, no cervical lymphadenopathy. Lungs: Clear KIM to auscultation and percussion, No accessory muscle use. Cardio: Normal S1/S2, regular rhythm, no murmurs, no JVD or carotid bruits. Abdomen: Soft, non-tender, no palpable masses, peristalsis present, no guarding or rebound. Extremities: Symmetrical, no significant deformities, no peripheral edema , non-tender, peripheral pulses presents. R UE swelling, improving Skin: No rashes, no lesions, warm to touch. Neuro: No focal neurological deficits. motor and sensory intact. Psych: Cooperative, appropriate mood and effect. Objective Labs 12/16/24 09:48 12/16/24 09:48 Labs: Laboratory Results - last 24 hr 12/15/24 12/15/24 12/16/24 11:12 19:03 09:48 WBC 9.3 RBC 2.48 L Hgb 8.0 L 7.3 L Hct 23.2 L 21.6 L* MCV 87 MCH 29.4 MCHC 33.8 RDW Std Deviation 44.8 Plt Count 245 D Neut % (Auto) 80 Lymph % (Auto) 11 [place] % (Auto) 8 Eos % (Auto) 0 Baso % (Auto) 0 Neut # (Auto) 7.4 Lymph # (Auto) 1.1 [place] # (Auto) 0.7 Eos # (Auto) 0.0 Baso # (Auto) 0.0 Immature Gran # (Auto) 0.03 H Absolute Nucleated RBC 0.00 Immature Gran % 0 Nucleated RBC % 0 Sodium 143 Potassium 3.0 L Chloride 105 Carbon Dioxide 30.9 Anion Gap 7 BUN < 5 L Creatinine 0.5 L Estim Creat Clear Calc 130.9 eGFR > 60 BUN/Creatinine Ratio 10 L Glucose 113 H Calculated Osmolality 283 Calcium 8.0 L Corrected Calcium 9.0 Magnesium 1.6 Total Bilirubin 0.4 AST 15 ALT 26 Alkaline Phosphatase 69 Total Protein 4.4 L Albumin 2.8 L Globulin 1.6 L Albumin/Globulin Ratio 1.8 Blood Type A Negative Antibody Screen NEGATIVE Crossmatch See Detail Blood Bank Wristband ID Yes Blood Bank Comment PLATP Ready Quality Measures Quality Measures VTE prophylaxis Assessment & Plan Assessment Current Active Medications: Generic Name Dose Route Start Last Admin Trade Name Freq PRN Reason Stop Dose Admin Acetaminophen 650 mg 12/10/24 21:35 Acetaminophen 325 Mg Tablet PO 01/09/25 21:34 Q6H PRN Fever >101.5 Hydrocodone Bitart/Acetaminophen 1 tab 12/14/24 11:12 12/16/24 07:13 Hydrocodone/Apap 5/325 Tablet PO 12/19/24 11:11 1 tab Q4HR PRN Administration PAIN Alprazolam 1 mg 12/15/24 23:43 Alprazolam 0.25 Mg Tablet PO 12/21/24 08:59 BID PRN anxiety Balsam Cholo/Palmetto Oil 0 gm 12/11/24 21:00 12/16/24 08:34 Balsam Cholo/Palmetto Oil (Venelex) 60 Gm Tube TOP 01/10/25 20:59 Not Given BID DWAYNE Lactated Ringer's 1,000 mls @ 70 mls/hr 12/13/24 03:11 12/16/24 05:43 Lactated Ringers IV 01/12/25 03:10 70 mls/hr .[id number] DWAYNE Administration Pantoprazole Sodium 40 mg 12/15/24 21:00 12/16/24 08:34 Pantoprazole 40 Mg Tablet PO 01/14/25 20:59 40 mg BID DWAYNE Administration Paroxetine HCl 10 mg 12/13/24 10:45 12/16/24 08:33 Paroxetine Hcl 10 Mg Tablet PO 01/12/25 10:44 10 mg QDAY DWAYNE Administration Sucralfate 1 gm 12/15/24 11:30 12/16/24 12:12 Sucralfate 1 Gm Tablet PO 01/14/25 11:29 1 gm AC DWAYNE Administration Plan 49-year-old female with past medical history of breast cancer status post neoadjuvant chemotherapy (first section on November 29, 2024), hypertension, and anxiety was admitted to the hospital on 12/10/2024 due to a syncopal episode likely in the setting of acute blood loss anemia secondary to GI bleed with hematochezia and hematemesis. #Syncopal episodes #Acute blood loss anemia #GI bleed, gastric bypass anastomosis site #Hematochezia #Hematemesis, resolved #Leukocytosis, resolved #Esophagitis #Colitis #Breast cancer, on chemotherapy (first chemo on 11/29/2024) ? Patient came in with complaints of bloody diarrhea as well as his bloody emesis since Tuesday. Has been having about 20 bowel movements per day ?Patient got her first dose of chemotherapy on November 29, 2024 and then experienced some diarrhea, but these were nonbloody initially. ?CT abdomen/pelvis showed colitis nonspecific pattern ? Patient got 6 units of PRBC, 1 FFP, 1 platelets during hospital stay ?Patient had EGD done on 12/11/2024 which showed esophagitis and bleeding from gastric bypass anastomosis site. ? Hemoglobin 7.3 today, no bloody BM today ? WBC 9.3 today ? Blood cultures negative along with C diff and stool cultures Plan: -Repeat H/H in afternoon. -Pending possible transfer ? Discontinue Flagyl and ciprofloxacin [12/10/2024-12/16/2024] ?Continue IV fluids ?IV Protonix ? GI consulted, appreciate recommendations ? Continue to monitor #Right superficial vein thrombosis ?Ultrasound Doppler of right upper extremity that showed right superficial cephalic vein nonocclusive thrombus as well as right basilic vein. Plan: ? Continue warm compress ? Chemical anticoagulation contraindicated due to GI bleed. #QTc prolongation ? Patient was noted to have continued prolongation on 12/11/2024 Plan: ? Will continue to monitor #Electrolyte imbalance #Hypokalemia, resolved #Hx of hypertension #Hx of anxiety ? Continue Xanax and paroxetine ? Patient's blood pressure has been on the softer end therefore we will hold all antihypertensive medication for now Disposition: Patient admitted to telemetry, pending possible transfer. Diet: Clear liquid diet GI prophylaxis: not indicated DVT prophylaxis: SCDs Code:Full Case disclosed with Attending Dr. Zachery Valentine PGY1
[2024-12-16 16:00] VITALS: BP 134/82; PULSE 81; RESP 18; TEMP 36.8; O2SAT 97
--- NOTE | 2024-12-16 18:55 | ESPR_ITS ---
Documentation for date of: 12/16/24 Subjective Subjective Interval history: Patient evaluated hemoglobin hematocrit 7.3 and 21.6 waiting insurance carrier Exam Vital Signs Temp Pulse Resp BP Pulse Ox O2 Del Method O2 Flow Rate 98.3 F 81 18 134/82 H 97 Room Air 2 12/16/24 16:00 12/16/24 16:00 12/16/24 16:00 12/16/24 16:00 12/16/24 16:00 12/16/24 16:00 12/12/24 01:19 Objective Labs 12/16/24 09:48 12/16/24 09:48 Labs: Laboratory Results - last 24 hr 12/15/24 12/15/24 12/16/24 11:12 19:03 09:48 WBC 9.3 RBC 2.48 L Hgb 8.0 L 7.3 L Hct 23.2 L 21.6 L* MCV 87 MCH 29.4 MCHC 33.8 RDW Std Deviation 44.8 Plt Count 245 D Neut % (Auto) 80 Lymph % (Auto) 11 [place] % (Auto) 8 Eos % (Auto) 0 Baso % (Auto) 0 Neut # (Auto) 7.4 Lymph # (Auto) 1.1 [place] # (Auto) 0.7 Eos # (Auto) 0.0 Baso # (Auto) 0.0 Immature Gran # (Auto) 0.03 H Absolute Nucleated RBC 0.00 Immature Gran % 0 Nucleated RBC % 0 Sodium 143 Potassium 3.0 L Chloride 105 Carbon Dioxide 30.9 Anion Gap 7 BUN < 5 L Creatinine 0.5 L Estim Creat Clear Calc 130.9 eGFR > 60 BUN/Creatinine Ratio 10 L Glucose 113 H Calculated Osmolality 283 Calcium 8.0 L Corrected Calcium 9.0 Magnesium 1.6 Total Bilirubin 0.4 AST 15 ALT 26 Alkaline Phosphatase 69 Total Protein 4.4 L Albumin 2.8 L Globulin 1.6 L Albumin/Globulin Ratio 1.8 Blood Type A Negative Antibody Screen NEGATIVE Crossmatch See Detail Blood Bank Wristband ID Yes Blood Bank Comment PLATP Ready Impressions Impression: Upper GI bleed secondary to anastomotic site ulceration requiring endoscopic intervention Patient continues to drop hemoglobin hematocrit requiring blood transfusion Waiting for insurance cleared for transfer to [facility] Assessment & Plan A&P Narrative # Hematemesis # Bloody diarrhea # Abnormal CT scan of the abdomen pelvis showing pancolitis Differential diagnosis include Infectious enterocolitis versus C. difficile enterocolitis Breast carcinoma undergoing roseanna adjuvant chemotherapy last dose November 29 Plan stool culture and sensitivity stool for C. difficile by PCR Stool for fecal calprotectin ANCA antibody Schedule fiberoptic esophagogastroduodenoscopy with possible therapeutic intervention possible biopsy under intravenous moderate sedation for evaluation of hematemesis I will wait for the stool culture and sensitivity as well as C. difficile before scheduling a colonoscopy for pancolitis Thank you once again for the opportunity to participate in the care of this patient Time Spent With Patient Time: Total time spent is greater than 50% in coordination of care (as documented) at patient's floor/unit and/or counseling patient:
[2024-12-16 19:01] LABS: Hematocrit 23.7 % (36.0-46.0)
[2024-12-16 20:00] VITALS: BP 123/77; PULSE 68; PULSE 79; RESP 12; TEMP 37.1; O2SAT 99
[2024-12-16] MEDS: ALPRazoLAM 0.25 MG TABLET 1 MG PO (22:13)
[2024-12-17] VITALS: PULSE 82
[2024-12-17 04:00] VITALS: PULSE 87
[2024-12-17] MEDS: HYDROcodone/APAP 5/325 TABLET 1 TAB PO ×4 (04:05→18:39)
[2024-12-17 05:58] VITALS: BMI 27.0
[2024-12-17 06:10] LABS: Basophils % (Auto) 0 % (0-2.5); Eosinophils # (Auto) 0.1 Thou/mm3 (0.0-0.5); Eosinophils % (Auto) 1 % (0-10); Hematocrit 20.8 % (36.0-46.0); Immature Granulocytes % (Auto) 1 % (0-0); Immature Granulocytes Auto 0.04 Thou/mm3 (0.00-0.00); Lymphocytes # (Auto) 1.3 Thou/mm3 (1.0-4.8); Lymphocytes % (Auto) 15 % (10-50); Mean Corpuscular HGB Conc 34.1 g/dl (31.0-37.0); Mean Corpuscular Volume 88 fL (80-100); Monocytes # (Auto) 0.8 Thou/mm3 (0.0-0.8); Monocytes % (Auto) 9 % (0-12); Neutrophils # (Auto) 6.4 Thou/mm3 (1.8-7.7); Neutrophils % (Auto) 74 % (37-80); Nucleated Red Blood Cell % 0 /100 WBC (0); Platelet Count 260 Thou/mm3 (140-440); RDW Standard Deviation 44.5 fL (36.4-46.3); Red Blood Count 2.37 Miln/mm3 (4.00-5.20); White Blood Count 8.6 Thou/mm3 (3.6-11.0)
[2024-12-17 06:19] LABS: Hemoglobin 7.1 g/dL (12.0-16.0)
[2024-12-17 06:33] LABS: Alanine Aminotransferase 20 U/L (10-49); Albumin, Serum 2.6 gm/dL (3.5-5.0); Albumin/Globulin Ratio 1.7 (1.2-2.2); Alkaline Phosphatase 59 U/L (46-116); Anion Gap 7 (7-16); Aspartate Amino Transferase 18 U/L (0-34); BUN/Creatinine Ratio 10 Ratio (12-20); Bilirubin,Total 0.3 mg/dL (0.3-1.2); Blood Urea Nitrogen < 5 mg/dL (9-23); Calcium (Corrected) 9.1 mg/dL (8.5-10.1); Carbon Dioxide 31.7 mMol/L (20.0-31.0); Chloride 105 mMol/L (98-107); Creatinine (Component) 0.5 mg/dL (0.6-1.3); Estimated Creatinine Clearance 130.9 mL/min (>60); Globulin 1.5 gm/dL (2.3-3.5); Glucose 94 mg/dL (74-106); Magnesium 1.7 mg/dL (1.6-2.6); Osmolality,Calculated 284 (275-295); Potassium 3.1 mMol/L (3.4-5.1); Sodium 144 mMol/L (136-145); Total Protein 4.1 gm/dL (5.7-8.2); eGFR > 60 See Note
[2024-12-17] MEDS: POTASSIUM CHLORIDE 20 mEq TABCR 40 MEQ PO (07:47)
[2024-12-17] MEDS: SUCRALFATE 1 GM TABLET PO ×3 (07:47→17:03)
[2024-12-17 08:00] VITALS: BP 121/66; PULSE 73; PULSE 89; RESP 16; TEMP 36.1; O2SAT 93
--- NOTE | 2024-12-17 08:27 | PC.CC ---
Addendum entered by Rhona Cardoso RN 12/17/24 14:51: DC bill faxed at this time Addendum entered by Rhona Cardoso RN 12/17/24 11:04: Tali from [facility] pt placement called at this time for updated clinicals, she states they are hoping to bring the patient today, she is requesting a dc summary to be faxed to [phone]. She also gave her office number as [phone]. Dr. Champion called about dc summary he states he will work on it now. Addendum entered by Rhona Cardoso RN 12/17/24 10:16: Authorization received at this time, spoke to Teresa from [facility] who requested the authorization to be faxed to her at [phone], auth faxed Addendum entered by Rhona Cardoso RN 12/17/24 08:55: Teresa from [facility] called at [facility] asking for update on insurance auth she states pt is medically accepted just waiting on auth. Updated her on speaking with Sanam. She requested call back at [phone] ext [phone] she leaves at 1830. Addendum entered by Rhona Cardoso RN 12/17/24 08:46: Sanam called back at this time, states she will look for the patients paperwork on the portal and will call back Addendum entered by Rhona Cardoso RN 12/17/24 08:39: Shantel from [facility] called back and gave Rich phone number which is [phone] called the number, no answer unable to leave VM will try again Original Note: RN called Sanam at [employer] to get auth for transfer, no answer voicemail left will follow up.
[2024-12-17] MEDS: PANTOPRAZOLE 40 MG TABLET PO ×2 (09:10→20:17)
[2024-12-17] MEDS: PARoxetine HCL 10 MG TABLET PO (09:10)
--- NOTE | 2024-12-17 10:55 | ESPR_ITS ---
<Statement entered by Nola Fournier MD - 12/17/24 11:12> I discussed with and supervised my co-resident involved in the care of this patient. I agree with the assessment and plan as documented above. No acute problems overnight. Patient awake, alert, in good spirits this morning. Hb at 7.1 this morning. No bloody BM noted. Conservative management of RUE superficial thrombus due to GIB. Pending transfer to [facility]. Nola Fournier MD PGY-3 Documentation for date of: 12/17/24 Subjective Subjective Interval history: Patient was seen at bedside this morning. No overnight events. Patient is hemoglobin today was 7 point 1 in the morning, no active signs of bleeding. Patient stated she would like to take a shower therefore we will place an order for patient to be able to take a shower with assistance. No other complaints at this time. Still pending authorization for possible transfer. Exam Vital Signs Temp Pulse Resp BP Pulse Ox O2 Del Method O2 Flow Rate 97.0 F 73 16 121/66 93 L Room Air 2 12/17/24 08:00 12/17/24 08:00 12/17/24 08:00 12/17/24 08:00 12/17/24 08:00 12/17/24 08:00 12/12/24 01:19 Narrative Exam General: A/O x3, no acute distress, well-nourished, well-developed Eyes: PERRL, EOMI. Anicteric, vision grossly intact. Ears: No ear pain, no ear discharge, Hearing grossly intact. Nose: No nasal discharge. Mouth/Throat: Moist mucous membranes, no redness, no lesions. Neck: Neck supple, non-tender, no cervical lymphadenopathy. Lungs: Clear KIM to auscultation and percussion, No accessory muscle use. Cardio: Normal S1/S2, regular rhythm, no murmurs, no JVD or carotid bruits. Abdomen: Soft, non-tender, no palpable masses, peristalsis present, no guarding or rebound. Extremities: Symmetrical, no significant deformities, no peripheral edema , non-tender, peripheral pulses presents. R UE swelling, continues to improve Skin: No rashes, no lesions, warm to touch. Neuro: No focal neurological deficits. motor and sensory intact. Psych: Cooperative, appropriate mood and effect. Objective Labs 12/17/24 05:34 12/17/24 05:34 Labs: Laboratory Results - last 24 hr 12/16/24 12/17/24 18:30 05:34 WBC 8.6 RBC 2.37 L Hgb 8.0 L 7.1 L Hct 23.7 L 20.8 L* MCV 88 MCH 30.0 MCHC 34.1 RDW Std Deviation 44.5 Plt Count 260 Neut % (Auto) 74 Lymph % (Auto) 15 [place] % (Auto) 9 Eos % (Auto) 1 Baso % (Auto) 0 Neut # (Auto) 6.4 Lymph # (Auto) 1.3 [place] # (Auto) 0.8 Eos # (Auto) 0.1 Baso # (Auto) 0.0 Immature Gran # (Auto) 0.04 H Absolute Nucleated RBC 0.00 Immature Gran % 1 H Nucleated RBC % 0 Sodium 144 Potassium 3.1 L Chloride 105 Carbon Dioxide 31.7 H Anion Gap 7 BUN < 5 L Creatinine 0.5 L Estim Creat Clear Calc 130.9 eGFR > 60 BUN/Creatinine Ratio 10 L Glucose 94 Calculated Osmolality 284 Calcium 8.0 L Corrected Calcium 9.1 Magnesium 1.7 Total Bilirubin 0.3 AST 18 ALT 20 Alkaline Phosphatase 59 Total Protein 4.1 L Albumin 2.6 L Globulin 1.5 L Albumin/Globulin Ratio 1.7 Quality Measures Quality Measures VTE prophylaxis Assessment & Plan Assessment Current Active Medications: Generic Name Dose Route Start Last Admin Trade Name Freq PRN Reason Stop Dose Admin Acetaminophen 650 mg 12/10/24 21:35 Acetaminophen 325 Mg Tablet PO 01/09/25 21:34 Q6H PRN Fever >101.5 Hydrocodone Bitart/Acetaminophen 1 tab 12/14/24 11:12 12/17/24 07:47 Hydrocodone/Apap 5/325 Tablet PO 12/19/24 11:11 1 tab Q4HR PRN Administration PAIN Alprazolam 1 mg 12/15/24 23:43 12/16/24 22:13 Alprazolam 0.25 Mg Tablet PO 12/21/24 08:59 1 mg BID PRN Administration anxiety Balsam Cholo/[place] Oil 0 gm 12/11/24 21:00 12/17/24 09:12 Balsam Cholo/[place] Oil (Venelex) 60 Gm Tube TOP 01/10/25 20:59 Not Given BID DWAYNE Pantoprazole Sodium 40 mg 12/15/24 21:00 12/17/24 09:10 Pantoprazole 40 Mg Tablet PO 01/14/25 20:59 40 mg BID DWAYNE Administration Paroxetine HCl 10 mg 12/13/24 10:45 12/17/24 09:10 Paroxetine Hcl 10 Mg Tablet PO 01/12/25 10:44 10 mg QDAY DWAYNE Administration Sucralfate 1 gm 12/15/24 11:30 12/17/24 07:47 Sucralfate 1 Gm Tablet PO 01/14/25 11:29 1 gm AC DWAYNE Administration Plan 49-year-old female with past medical history of breast cancer status post neoadjuvant chemotherapy (first section on November 29, 2024), hypertension, and anxiety was admitted to the hospital on 12/10/2024 due to a syncopal episode likely in the setting of acute blood loss anemia secondary to GI bleed with hematochezia and hematemesis. #Syncopal episodes #Acute blood loss anemia #GI bleed, gastric bypass anastomosis site #Hematochezia #Hematemesis, resolved #Leukocytosis, resolved #Esophagitis #Colitis #Breast cancer, on chemotherapy (first chemo on 11/29/2024) ? Patient came in with complaints of bloody diarrhea as well as his bloody emesis since Tuesday. Has been having about 20 bowel movements per day ?Patient got her first dose of chemotherapy on November 29, 2024 and then experienced some diarrhea, but these were nonbloody initially. ?CT abdomen/pelvis showed colitis nonspecific pattern ? Patient got 6 units of PRBC, 1 FFP, 1 platelets during hospital stay ?Patient had EGD done on 12/11/2024 which showed esophagitis and bleeding from gastric bypass anastomosis site. ? Hemoglobin 7.1 today, no bloody BM today ? WBC 8.6 today ? Blood cultures negative along with C diff and stool cultures ? Discontinue Flagyl and ciprofloxacin [12/10/2024-12/16/2024] Plan: -Pending possible transfer ?Discontinue IV fluids ?IV Protonix ? GI consulted, appreciate recommendations ? Continue to monitor #Right superficial vein thrombosis ?Ultrasound Doppler of right upper extremity that showed right superficial cephalic vein nonocclusive thrombus as well as right basilic vein. Plan: ? Continue warm compress ? Chemical anticoagulation contraindicated due to GI bleed. #QTc prolongation ? Patient was noted to have continued prolongation on 12/11/2024 Plan: ? Will continue to monitor #Electrolyte imbalance #Hypokalemia, resolved #Hx of hypertension #Hx of anxiety ? Continue Xanax and paroxetine ? Patient's blood pressure has been on the softer end therefore we will hold all antihypertensive medication for now Disposition: Patient admitted to telemetry, pending possible transfer after insurance auth. Diet: Clear liquid diet GI prophylaxis: not indicated DVT prophylaxis: SCDs Code:Full Case disclosed with Attending Dr. Bingham and my senior Dr. Shantanu Valentine PGY1
--- NOTE | 2024-12-17 11:08 | PD.RESDS ---
Planned Discharge Date 12/17/24 DS: Providers Provider Date of admission: 12/10/24 21:36 Primary care physician: Hilda Meza MD Admitting Provider: Tony Seo MD Attending Provider on Admission: Kojo Bingham MD Consults: 12/10/24 21:20 Consult to Gastroenterology Stat Comment: Consulting Provider: Jae Bay 12/11/24 14:44 Referral Wound Care Routine Comment: suspicious area to right sacrum, pt. reports pain Attending Provider on DC: Kojo Bingham MD Discharging Provider: Kojo Bingham MD DS: Diagnosis Problem List Completed Was Problem List Reviewed/Reconciled?: Yes Hospital Course Hospital Course Hospital course: 49-year-old female with past medical history of breast cancer status post neoadjuvant chemotherapy (first section on November 29, 2024), hypertension, gastric bypass, and anxiety was admitted to the hospital on 12/10/2024 due to a syncopal episode likely in the setting of acute blood loss anemia secondary to GI bleed with hematochezia and hematemesis. Came into the ED with complaints of bloody diarrhea, syncopal episode, and episode of bloody emesis. GI was consulted at this time given that patient had acute blood loss anemia and did a EGD the next day of admission and it showed that the patient had esophagitis and bleeding from anastomosis site of gastric bypass. During the EGD epinephrine was injected around anastomosis site and 1 Endo Clip was placed. Given this patient was upgraded to the ICU for closer monitoring of patient's hemoglobin in the setting of active bleeding from anastomosis site. Throughout the patient's hospital stay she required a total of 6 units of PRBC, 1 FFP, 1 platelets given that she was continuously anemic with a hemoglobin below 7. Patient had around 1-2 more bowel movements that were bloody after the EGD was done, but afterwards she continued to have bowel movements that were nonbloody. Patient had slightly prolonged QTc while she was in the ICU and since she was on ciprofloxacin which could have prolonged QTc frequent EKGs were ordered, but patient's QTc was not prolonged and following EKGs done. She received IV antibiotics for some colitis that was initially seen in the CT scan, but these were discontinued on 12/16/2024. Patient was found to have a superficial vein thrombosis after she had IV line infiltrated in her right upper extremity, but given that patient was actively bleeding chemical anticoagulation was contraindicated at this time therefore only place warm compresses for this time. Patient's last PRBC transfusion was on 12/15/2024. Throughout the hospital stay she denied any dizziness, weakness, or further episodes of emesis. At the time of transfer patient was stable enough to be transferred to a tertiary care facility for further management. Discharge plan: ? Transferred to a tertiary care center Problem list: #Syncopal episodes #Acute blood loss anemia #GI bleed, gastric bypass anastomosis site #Hematochezia #Hematemesis, resolved #Leukocytosis, resolved #Esophagitis #Colitis #Breast cancer, on chemotherapy (first chemo on 11/29/2024) #Right superficial vein thrombosis #QTc prolongation #Electrolyte imbalance #Hypokalemia, resolved #Hx of hypertension #Hx of anxiety Case disclosed with Attending Dr. Bingham and my senior Dr. Shantanu Valentine PGY1 Time Spent with Patient Time attestation: Total time spent providing and/or coordinating discharge services:>35 min Exam Vital Signs Temp Pulse Resp BP Pulse Ox O2 Del Method O2 Flow Rate 97.0 F 73 16 121/66 93 L Room Air 2 12/17/24 08:00 12/17/24 08:00 12/17/24 08:00 12/17/24 08:00 12/17/24 08:00 12/17/24 08:00 12/12/24 01:19 Narrative Exam General: A/O x3, no acute distress, well-nourished, well-developed Eyes: PERRL, EOMI. Anicteric, vision grossly intact. Ears: No ear pain, no ear discharge, Hearing grossly intact. Nose: No nasal discharge. Mouth/Throat: Moist mucous membranes, no redness, no lesions. Neck: Neck supple, non-tender, no cervical lymphadenopathy. Lungs: Clear KIM to auscultation and percussion, No accessory muscle use. Cardio: Normal S1/S2, regular rhythm, no murmurs, no JVD or carotid bruits. Abdomen: Soft, non-tender, no palpable masses, peristalsis present, no guarding or rebound. Extremities: Symmetrical, no significant deformities, no peripheral edema , non-tender, peripheral pulses presents. R UE swelling, continues to improve Skin: No rashes, no lesions, warm to touch. Neuro: No focal neurological deficits. motor and sensory intact. Psych: Cooperative, appropriate mood and effect. Discharge Plan Plan Patient Disposition: Xfer Other Patient condition on transfer: Stable Prescriptions/Referrals Prescriptions/Med Rec: No Action paroxetine HCl [Paxil] 10 mg Tablet 10 mg PO QDAY amlodipine 5 mg Tablet 5 mg PO QDAY norethindrone (contraceptive) [Kalani] 0.35 mg Tablet 0.35 mg PO QDAY alprazolam [Xanax] 1 mg tablet 1 mg PO BID PRN (Reason: anxiety) Qty: 14 0RF ciprofloxacin HCl [Cipro] 500 mg tablet 500 mg PO BID Qty: 14 0RF prochlorperazine maleate [Compazine] 10 mg tablet 10 mg PO Q8H PRN (Reason: nausea and vomiting) diphenoxylate-atropine [Lomotil] 2.5-0.025 mg tablet 1 tab PO QID PRN (Reason: diarrhea) Rx Instructions: 1 to 2 tabs. Max 8 tabs per day acetaminophen 650 mg tablet extended release 650 mg PO Q8H PRN (Reason: pain) Referrals: Hilda Meza MD [Primary Care Provider] - Patient/Caregiver Discharge Instructions Print Language: Georgian Stand Alone Forms: Randee Award Info., Patient Portal Info Letter Discharge Order Discharge Orders: Discharge (Routine); Ordered 12/12/24 Ordered By: Stan Jackson Quality Discharge Quality Measures VTE prophylaxis
[2024-12-17 12:00] VITALS: PULSE 104
[2024-12-17 16:00] VITALS: BP 107/66; PULSE 75; PULSE 78; RESP 17; TEMP 36.6; O2SAT 98
--- NOTE | 2024-12-17 19:56 | PD.IMPROG ---
Documentation for date of: 12/17/24 Subjective Subjective Interval history: Hemoglobin hematocrit to 7.1 and 20.8 awaiting insurance authorization for the transfer to [facility] placement Exam Vital Signs Temp Pulse Resp BP Pulse Ox O2 Del Method O2 Flow Rate 97.8 F 78 17 107/66 98 Room Air 2 12/17/24 16:00 12/17/24 16:00 12/17/24 16:00 12/17/24 16:00 12/17/24 16:00 12/17/24 16:00 12/12/24 01:19 Objective Labs 12/17/24 05:34 12/17/24 05:34 Labs: Laboratory Results - last 24 hr 12/17/24 05:34 WBC 8.6 RBC 2.37 L Hgb 7.1 L Hct 20.8 L* MCV 88 MCH 30.0 MCHC 34.1 RDW Std Deviation 44.5 Plt Count 260 Neut % (Auto) 74 Lymph % (Auto) 15 [place] % (Auto) 9 Eos % (Auto) 1 Baso % (Auto) 0 Neut # (Auto) 6.4 Lymph # (Auto) 1.3 [place] # (Auto) 0.8 Eos # (Auto) 0.1 Baso # (Auto) 0.0 Immature Gran # (Auto) 0.04 H Absolute Nucleated RBC 0.00 Immature Gran % 1 H Nucleated RBC % 0 Sodium 144 Potassium 3.1 L Chloride 105 Carbon Dioxide 31.7 H Anion Gap 7 BUN < 5 L Creatinine 0.5 L Estim Creat Clear Calc 130.9 eGFR > 60 BUN/Creatinine Ratio 10 L Glucose 94 Calculated Osmolality 284 Calcium 8.0 L Corrected Calcium 9.1 Magnesium 1.7 Total Bilirubin 0.3 AST 18 ALT 20 Alkaline Phosphatase 59 Total Protein 4.1 L Albumin 2.6 L Globulin 1.5 L Albumin/Globulin Ratio 1.7 Impressions Impression: # Ongoing upper GI bleeding in the setting of bariatric procedure with anastomotic site ulceration in spite of endoscopic intervention still needs to be transferred for further evaluation management at a tertiary center Assessment & Plan A&P Narrative # Hematemesis # Bloody diarrhea # Abnormal CT scan of the abdomen pelvis showing pancolitis Differential diagnosis include Infectious enterocolitis versus C. difficile enterocolitis Breast carcinoma undergoing roseanna adjuvant chemotherapy last dose November 29 Plan stool culture and sensitivity stool for C. difficile by PCR Stool for fecal calprotectin ANCA antibody Schedule fiberoptic esophagogastroduodenoscopy with possible therapeutic intervention possible biopsy under intravenous moderate sedation for evaluation of hematemesis I will wait for the stool culture and sensitivity as well as C. difficile before scheduling a colonoscopy for pancolitis Thank you once again for the opportunity to participate in the care of this patient Time Spent With Patient Time: Total time spent is greater than 50% in coordination of care (as documented) at patient's floor/unit and/or counseling patient:
[2024-12-17 20:00] VITALS: BP 123/77; PULSE 76; PULSE 99; RESP 14; TEMP 36.9; O2SAT 97
[2024-12-17] MEDS: ALPRazoLAM 0.25 MG TABLET 1 MG PO (22:37)
[2024-12-18] VITALS (7 sets, daily range): BP systolic 112–127; BP diastolic 71–73; PULSE 69–96; RESP 14–18; TEMP 36.1–37.1; O2SAT 96–98; BMI 27.1
[2024-12-18 05:39] LABS: Basophils % (Auto) 1 % (0-2.5); Eosinophils # (Auto) 0.1 Thou/mm3 (0.0-0.5); Eosinophils % (Auto) 1 % (0-10); Immature Granulocytes % (Auto) 0 % (0-0); Immature Granulocytes Auto 0.02 Thou/mm3 (0.00-0.00); Lymphocytes # (Auto) 1.3 Thou/mm3 (1.0-4.8); Lymphocytes % (Auto) 18 % (10-50); Mean Corpuscular HGB Conc 34.1 g/dl (31.0-37.0); Mean Corpuscular Hemoglobin 30.2 pg (25.0-35.0); Mean Corpuscular Volume 89 fL (80-100); Monocytes # (Auto) 0.6 Thou/mm3 (0.0-0.8); Monocytes % (Auto) 9 % (0-12); Neutrophils % (Auto) 71 % (37-80); Nucleated Red Blood Cell % 0 /100 WBC (0); Platelet Count 270 Thou/mm3 (140-440); RDW Standard Deviation 45.1 fL (36.4-46.3); Red Blood Count 2.35 Miln/mm3 (4.00-5.20); White Blood Count 7.1 Thou/mm3 (3.6-11.0)
[2024-12-18 05:47] LABS: Hematocrit 20.8 % (36.0-46.0); Hemoglobin 7.1 g/dL (12.0-16.0)
[2024-12-18 06:29] LABS: ANCA Screen NEGATIVE (NEGATIVE); Myeloperoxidase Ab <1.0 AI (<1.0); Proteinase-3 Ab <1.0 AI (<1.0)
[2024-12-18 07:18] LABS: Alanine Aminotransferase 26 U/L (10-49); Albumin, Serum 2.7 gm/dL (3.5-5.0); Albumin/Globulin Ratio 1.7 (1.2-2.2); Alkaline Phosphatase 61 U/L (46-116); Anion Gap 7 (7-16); Aspartate Amino Transferase 41 U/L (0-34); BUN/Creatinine Ratio 8 Ratio (12-20); Bilirubin,Total 0.3 mg/dL (0.3-1.2); Blood Urea Nitrogen < 5 mg/dL (9-23); Calcium 8.3 mg/dL (8.3-10.6); Calcium (Corrected) 9.3 mg/dL (8.5-10.1); Carbon Dioxide 32.1 mMol/L (20.0-31.0); Chloride 105 mMol/L (98-107); Creatinine (Component) 0.6 mg/dL (0.6-1.3); Estimated Creatinine Clearance 109.4 mL/min (>60); Globulin 1.6 gm/dL (2.3-3.5); Glucose 90 mg/dL (74-106); Magnesium 1.8 mg/dL (1.6-2.6); Osmolality,Calculated 284 (275-295); Potassium 3.4 mMol/L (3.4-5.1); Sodium 144 mMol/L (136-145); Total Protein 4.3 gm/dL (5.7-8.2); eGFR > 60 See Note
[2024-12-18] MEDS: SUCRALFATE 1 GM TABLET PO ×3 (07:22→17:13)
[2024-12-18] MEDS: PANTOPRAZOLE 40 MG TABLET PO ×2 (08:39→20:02)
[2024-12-18] MEDS: PARoxetine HCL 10 MG TABLET PO (08:39)
[2024-12-18] MEDS: HYDROcodone/APAP 5/325 TABLET 1 TAB PO ×3 (08:39→22:13)
--- NOTE | 2024-12-18 11:51 | ESPR_ITS ---
<Statement entered by Nola Fournier MD - 12/18/24 13:39> I discussed with and supervised my co-resident involved in the care of this patient. I agree with the assessment and plan as documented above. No acute events overnight. RUE swelling improving. Hemoglobin stable. Pending transfer to [facility]. Noal Fournier MD PGY-3 Documentation for date of: 12/18/24 Subjective Subjective Interval history: Patient was seen at bedside this morning. No overnight events. Patient is hemoglobin was stable today as she has not had any bloody bowel movements today. Still pending transfer at this time. Exam Vital Signs Temp Pulse Resp BP Pulse Ox O2 Del Method O2 Flow Rate 98.7 F 96 14 114/71 97 Room Air 2 12/18/24 07:57 12/18/24 08:00 12/18/24 07:57 12/18/24 07:57 12/18/24 07:57 12/18/24 07:57 12/12/24 01:19 Narrative Exam General: A/O x3, no acute distress, well-nourished, well-developed Eyes: PERRL, EOMI. Anicteric, vision grossly intact. Ears: No ear pain, no ear discharge, Hearing grossly intact. Nose: No nasal discharge. Mouth/Throat: Moist mucous membranes, no redness, no lesions. Neck: Neck supple, non-tender, no cervical lymphadenopathy. Lungs: Clear KIM to auscultation and percussion, No accessory muscle use. Cardio: Normal S1/S2, regular rhythm, no murmurs, no JVD or carotid bruits. Abdomen: Soft, non-tender, no palpable masses, peristalsis present, no guarding or rebound. Extremities: Symmetrical, no significant deformities, no peripheral edema , non-tender, peripheral pulses presents. R UE swelling, continues to improve Skin: No rashes, no lesions, warm to touch. Neuro: No focal neurological deficits. motor and sensory intact. Psych: Cooperative, appropriate mood and effect. Objective Labs 12/18/24 05:10 12/18/24 05:10 Labs: Laboratory Results - last 24 hr 12/12/24 12/18/24 05:13 05:10 WBC 7.1 RBC 2.35 L Hgb 7.1 L Hct 20.8 L* MCV 89 MCH 30.2 MCHC 34.1 RDW Std Deviation 45.1 Plt Count 270 Neut % (Auto) 71 Lymph % (Auto) 18 [place] % (Auto) 9 Eos % (Auto) 1 Baso % (Auto) 1 Neut # (Auto) 5.0 Lymph # (Auto) 1.3 [place] # (Auto) 0.6 Eos # (Auto) 0.1 Baso # (Auto) 0.0 Immature Gran # (Auto) 0.02 H Absolute Nucleated RBC 0.00 Immature Gran % 0 Nucleated RBC % 0 Sodium 144 Potassium 3.4 Chloride 105 Carbon Dioxide 32.1 H Anion Gap 7 BUN < 5 L Creatinine 0.6 Estim Creat Clear Calc 109.4 eGFR > 60 BUN/Creatinine Ratio 8 L Glucose 90 Calculated Osmolality 284 Calcium 8.3 Corrected Calcium 9.3 Magnesium 1.8 Total Bilirubin 0.3 AST 41 H ALT 26 Alkaline Phosphatase 61 Total Protein 4.3 L Albumin 2.7 L Globulin 1.6 L Albumin/Globulin Ratio 1.7 ANCA Screen NEGATIVE c-ANCA Titer TNP Anti-Proteinase 3 <1.0 p-ANCA Titer TNP Atypical p-ANCA Titer TNP Anti-Myeloperoxidase <1.0 Quality Measures Quality Measures VTE prophylaxis Assessment & Plan Assessment Current Active Medications: Generic Name Dose Route Start Last Admin Trade Name Freq PRN Reason Stop Dose Admin Acetaminophen 650 mg 12/10/24 21:35 Acetaminophen 325 Mg Tablet PO 01/09/25 21:34 Q6H PRN Fever >101.5 Hydrocodone Bitart/Acetaminophen 1 tab 12/14/24 11:12 12/18/24 08:39 Hydrocodone/Apap 5/325 Tablet PO 12/19/24 11:11 1 tab Q4HR PRN Administration PAIN Alprazolam 1 mg 12/15/24 23:43 12/17/24 22:37 Alprazolam 0.25 Mg Tablet PO 12/21/24 08:59 1 mg BID PRN Administration anxiety Pantoprazole Sodium 40 mg 12/15/24 21:00 12/18/24 08:39 Pantoprazole 40 Mg Tablet PO 01/14/25 20:59 40 mg BID DWAYNE Administration Paroxetine HCl 10 mg 12/13/24 10:45 12/18/24 08:39 Paroxetine Hcl 10 Mg Tablet PO 01/12/25 10:44 10 mg QDAY DWAYNE Administration Sucralfate 1 gm 12/15/24 11:30 12/18/24 11:23 Sucralfate 1 Gm Tablet PO 01/14/25 11:29 1 gm AC DWAYNE Administration Plan 49-year-old female with past medical history of breast cancer status post neoadjuvant chemotherapy (first section on November 29, 2024), hypertension, and anxiety was admitted to the hospital on 12/10/2024 due to a syncopal episode likely in the setting of acute blood loss anemia secondary to GI bleed with hematochezia and hematemesis. #Syncopal episodes #Acute blood loss anemia #GI bleed, gastric bypass anastomosis site #Hematochezia #Hematemesis, resolved #Leukocytosis, resolved #Esophagitis #Colitis #Breast cancer, on chemotherapy (first chemo on 11/29/2024) ? Patient came in with complaints of bloody diarrhea as well as his bloody emesis since Tuesday. Has been having about 20 bowel movements per day ?Patient got her first dose of chemotherapy on November 29, 2024 and then experienced some diarrhea, but these were nonbloody initially. ?CT abdomen/pelvis showed colitis nonspecific pattern ? Patient got 6 units of PRBC, 1 FFP, 1 platelets during hospital stay ?Patient had EGD done on 12/11/2024 which showed esophagitis and bleeding from gastric bypass anastomosis site. ? Hemoglobin 7.1 today, no bloody BM today ? WBC 8.6 today ? Blood cultures negative along with C diff and stool cultures ? Discontinue Flagyl and ciprofloxacin [12/10/2024-12/16/2024] Plan: -Pending possible transfer ?IV Protonix and sucralfate ? GI consulted, appreciate recommendations ? Continue to monitor #Right superficial vein thrombosis ?Ultrasound Doppler of right upper extremity that showed right superficial cephalic vein nonocclusive thrombus as well as right basilic vein. Plan: ? Continue warm compress ? Chemical anticoagulation contraindicated due to GI bleed. #QTc prolongation ? Patient was noted to have continued prolongation on 12/11/2024 Plan: ? Will continue to monitor #Electrolyte imbalance #Hypokalemia, resolved #Hx of hypertension #Hx of anxiety ? Continue Xanax and paroxetine ? Patient's blood pressure has been on the softer end therefore we will hold all antihypertensive medication for now Disposition: Patient pending transfer Diet: Clear liquid diet GI prophylaxis: protonix DVT prophylaxis: SCDs Code:Full Case disclosed with Attending Dr. Bingham and my senior Dr. Shantanu Valentine PGY1
--- NOTE | 2024-12-18 14:21 | PC.CM ---
Addendum entered by Radha Cha RN 12/19/24 12:28: I called [facility] for an update on transfer. I spoke to Transfer nurse Alicja and she states patient has been medically accepted to [facility] but they do not have any beds at this time. She states they should be having discharges throughout the day, so hopefully, a bed might open up. She asked that I fax over a discharge summary. I called Dr. Fournier and requested she compete a discharge summary. Number to call for follow up [phone]. Packet ready with CD. Addendum entered by Radha Cha RN 12/18/24 17:28: 1600 I updated the packet and got a CD for transfer. I had Dr. Bingham sign pink form. I called [facility] patient placement and I was on hold for 10 min. I was not able to speak to a live person, but I was able to leave a message. Original Note: I spoke to [facility] Patient placement and I spoke to Bert. She states they have accepted patient medically but we are still waiting for an open bed. I updated the charge nurse.
--- NOTE | 2024-12-18 20:02 | ESPR_ITS ---
Documentation for date of: 12/18/24 Subjective Subjective Interval history: Patient evaluated hemoglobin hematocrit 7.1 and 20.[address] with [address] Banda at [facility] for the availability of the bed Advance to full liquid diet Exam Vital Signs Temp Pulse Resp BP Pulse Ox O2 Del Method O2 Flow Rate 97.0 F 75 18 112/73 97 Room Air 2 12/18/24 16:00 12/18/24 16:00 12/18/24 16:00 12/18/24 16:00 12/18/24 16:00 12/18/24 16:00 12/12/24 01:19 Objective Labs 12/18/24 05:10 12/18/24 05:10 Labs: Laboratory Results - last 24 hr 12/12/24 12/18/24 05:13 05:10 WBC 7.1 RBC 2.35 L Hgb 7.1 L Hct 20.8 L* MCV 89 MCH 30.2 MCHC 34.1 RDW Std Deviation 45.1 Plt Count 270 Neut % (Auto) 71 Lymph % (Auto) 18 [place] % (Auto) 9 Eos % (Auto) 1 Baso % (Auto) 1 Neut # (Auto) 5.0 Lymph # (Auto) 1.3 [place] # (Auto) 0.6 Eos # (Auto) 0.1 Baso # (Auto) 0.0 Immature Gran # (Auto) 0.02 H Absolute Nucleated RBC 0.00 Immature Gran % 0 Nucleated RBC % 0 Sodium 144 Potassium 3.4 Chloride 105 Carbon Dioxide 32.1 H Anion Gap 7 BUN < 5 L Creatinine 0.6 Estim Creat Clear Calc 109.4 eGFR > 60 BUN/Creatinine Ratio 8 L Glucose 90 Calculated Osmolality 284 Calcium 8.3 Corrected Calcium 9.3 Magnesium 1.8 Total Bilirubin 0.3 AST 41 H ALT 26 Alkaline Phosphatase 61 Total Protein 4.3 L Albumin 2.7 L Globulin 1.6 L Albumin/Globulin Ratio 1.7 ANCA Screen NEGATIVE c-ANCA Titer TNP Anti-Proteinase 3 <1.0 p-ANCA Titer TNP Atypical p-ANCA Titer TNP Anti-Myeloperoxidase <1.0 Impressions Impression: Anastomotic site ulceration as a cause of bleeding in the setting of gastric bypass procedure Advance to full liquid diet Waiting for a bed at [facility] Assessment & Plan A&P Narrative # Hematemesis # Bloody diarrhea # Abnormal CT scan of the abdomen pelvis showing pancolitis Differential diagnosis include Infectious enterocolitis versus C. difficile enterocolitis Breast carcinoma undergoing roseanna adjuvant chemotherapy last dose November 29 Plan stool culture and sensitivity stool for C. difficile by PCR Stool for fecal calprotectin ANCA antibody Schedule fiberoptic esophagogastroduodenoscopy with possible therapeutic intervention possible biopsy under intravenous moderate sedation for evaluation of hematemesis I will wait for the stool culture and sensitivity as well as C. difficile before scheduling a colonoscopy for pancolitis Thank you once again for the opportunity to participate in the care of this patient Time Spent With Patient Time: Total time spent is greater than 50% in coordination of care (as documented) at patient's floor/unit and/or counseling patient:
[2024-12-18] MEDS: ALPRazoLAM 0.25 MG TABLET 1 MG PO (22:13)
[2024-12-19] VITALS (57 sets, daily range): BP systolic 107–179; BP diastolic 45–76; PULSE 68–110; RESP 0–54; TEMP 36.4–37.3; O2SAT 93–99; BMI 26.9
[2024-12-19 05:50] LABS: Basophils % (Auto) 0 % (0-2.5); Eosinophils % (Auto) 1 % (0-10); Immature Granulocytes % (Auto) 0 % (0-0); Immature Granulocytes Auto 0.01 Thou/mm3 (0.00-0.00); Lymphocytes # (Auto) 1.6 Thou/mm3 (1.0-4.8); Lymphocytes % (Auto) 23 % (10-50); Mean Corpuscular HGB Conc 32.7 g/dl (31.0-37.0); Mean Corpuscular Hemoglobin 29.6 pg (25.0-35.0); Mean Corpuscular Volume 91 fL (80-100); Monocytes # (Auto) 0.6 Thou/mm3 (0.0-0.8); Monocytes % (Auto) 8 % (0-12); Neutrophils # (Auto) 4.7 Thou/mm3 (1.8-7.7); Neutrophils % (Auto) 68 % (37-80); Nucleated Red Blood Cell % 0 /100 WBC (0); Platelet Count 339 Thou/mm3 (140-440); RDW Standard Deviation 46.5 fL (36.4-46.3); Red Blood Count 2.33 Miln/mm3 (4.00-5.20); White Blood Count 6.9 Thou/mm3 (3.6-11.0)
[2024-12-19 05:56] LABS: Hematocrit 21.1 % (36.0-46.0); Hemoglobin 6.9 g/dL (12.0-16.0)
[2024-12-19 06:20] LABS: Alanine Aminotransferase 32 U/L (10-49); Albumin, Serum 2.8 gm/dL (3.5-5.0); Albumin/Globulin Ratio 1.6 (1.2-2.2); Alkaline Phosphatase 60 U/L (46-116); Anion Gap 7 (7-16); Aspartate Amino Transferase 46 U/L (0-34); BUN/Creatinine Ratio 8 Ratio (12-20); Bilirubin,Total 0.2 mg/dL (0.3-1.2); Blood Urea Nitrogen < 5 mg/dL (9-23); Calcium 8.3 mg/dL (8.3-10.6); Calcium (Corrected) 9.3 mg/dL (8.5-10.1); Carbon Dioxide 32.4 mMol/L (20.0-31.0); Chloride 106 mMol/L (98-107); Creatinine (Component) 0.6 mg/dL (0.6-1.3); Estimated Creatinine Clearance 108.8 mL/min (>60); Globulin 1.7 gm/dL (2.3-3.5); Glucose 87 mg/dL (74-106); Osmolality,Calculated 284 (275-295); Potassium 3.6 mMol/L (3.4-5.1); Sodium 145 mMol/L (136-145); Total Protein 4.5 gm/dL (5.7-8.2); eGFR > 60 See Note
[2024-12-19] MEDS: SUCRALFATE 1 GM TABLET PO ×3 (07:49→16:44)
[2024-12-19] MEDS: PANTOPRAZOLE 40 MG TABLET PO ×2 (09:34→21:21)
[2024-12-19] MEDS: PARoxetine HCL 10 MG TABLET PO (09:34)
--- NOTE | 2024-12-19 11:31 | ESPR_ITS ---
<Statement entered by Nola Fournier MD - 12/19/24 11:41> I discussed with and supervised my co-resident involved in the care of this patient. I agree with the assessment and plan as documented above. No acute problems overnight. Hb this morning 6.9, ordered 1 unit PRBC. Denies melena, hematochezia. Pending bed at [facility]. Will follow up with transfer nurse if other facilities are available for transfer as well. Nola Fournier MD PGY-3 Documentation for date of: 12/19/24 Subjective Subjective Interval history: Patient was seen at bedside this morning. No overnight events. Patient's hemoglobin this morning was 6.9 therefore will transfuse 1 more PRBC. Otherwise no other complaints. Patient was frustrated as she still has not been transferred, but it was explained to her that we got authorization and that usually accepted her but were pending bed availability. Transfer nurse spoke with the patient and she was understanding. Exam Vital Signs Temp Pulse Resp BP Pulse Ox O2 Del Method O2 Flow Rate 98 F 80 14 110/73 97 Room Air 2 12/19/24 11:11 12/19/24 11:11 12/19/24 11:11 12/19/24 11:11 12/19/24 11:11 12/19/24 07:46 12/12/24 01:19 Narrative Exam General: A/O x3, no acute distress, sentimental Eyes: PERRL, EOMI. Anicteric, vision grossly intact. Ears: No ear pain, no ear discharge, Hearing grossly intact. Nose: No nasal discharge. Mouth/Throat: Moist mucous membranes, no redness, no lesions. Neck: Neck supple, non-tender, no cervical lymphadenopathy. Lungs: Clear KIM to auscultation and percussion, No accessory muscle use. Cardio: Normal S1/S2, regular rhythm, no murmurs, no JVD or carotid bruits. Abdomen: Soft, non-tender, no palpable masses, peristalsis present, no guarding or rebound. Extremities: Symmetrical, no significant deformities, no peripheral edema , non-tender, peripheral pulses presents. R UE swelling, continues to improve Skin: No rashes, no lesions, warm to touch. Neuro: No focal neurological deficits. motor and sensory intact. Psych: sentimental Objective Labs 12/19/24 04:54 12/19/24 04:54 Labs: Laboratory Results - last 24 hr 12/19/24 12/19/24 04:54 06:41 WBC 6.9 RBC 2.33 L Hgb 6.9 L* Hct 21.1 L* MCV 91 MCH 29.6 MCHC 32.7 RDW Std Deviation 46.5 H Plt Count 339 D Neut % (Auto) 68 Lymph % (Auto) 23 [place] % (Auto) 8 Eos % (Auto) 1 Baso % (Auto) 0 Neut # (Auto) 4.7 Lymph # (Auto) 1.6 [place] # (Auto) 0.6 Eos # (Auto) 0.0 Baso # (Auto) 0.0 Immature Gran # (Auto) 0.01 H Absolute Nucleated RBC 0.00 Immature Gran % 0 Nucleated RBC % 0 Sodium 145 Potassium 3.6 Chloride 106 Carbon Dioxide 32.4 H Anion Gap 7 BUN < 5 L Creatinine 0.6 Estim Creat Clear Calc 108.8 eGFR > 60 BUN/Creatinine Ratio 8 L Glucose 87 Calculated Osmolality 284 Calcium 8.3 Corrected Calcium 9.3 Magnesium 2.0 Total Bilirubin 0.2 L AST 46 H ALT 32 Alkaline Phosphatase 60 Total Protein 4.5 L Albumin 2.8 L Globulin 1.7 L Albumin/Globulin Ratio 1.6 Blood Type A Negative Antibody Screen NEGATIVE Crossmatch See Detail Blood Bank Wristband ID Yes Quality Measures Quality Measures VTE prophylaxis Assessment & Plan Assessment Current Active Medications: Generic Name Dose Route Start Last Admin Trade Name Freq PRN Reason Stop Dose Admin Acetaminophen 650 mg 12/10/24 21:35 Acetaminophen 325 Mg Tablet PO 01/09/25 21:34 Q6H PRN Fever >101.5 Alprazolam 1 mg 12/15/24 23:43 12/18/24 22:13 Alprazolam 0.25 Mg Tablet PO 12/21/24 08:59 1 mg BID PRN Administration anxiety Pantoprazole Sodium 40 mg 12/15/24 21:00 12/19/24 09:34 Pantoprazole 40 Mg Tablet PO 01/14/25 20:59 40 mg BID DWAYNE Administration Paroxetine HCl 10 mg 12/13/24 10:45 12/19/24 09:34 Paroxetine Hcl 10 Mg Tablet PO 01/12/25 10:44 10 mg QDAY DWAYNE Administration Sucralfate 1 gm 12/15/24 11:30 12/19/24 07:49 Sucralfate 1 Gm Tablet PO 01/14/25 11:29 1 gm AC DWAYNE Administration Plan 49-year-old female with past medical history of breast cancer status post neoadjuvant chemotherapy (first section on November 29, 2024), hypertension, and anxiety was admitted to the hospital on 12/10/2024 due to a syncopal episode likely in the setting of acute blood loss anemia secondary to GI bleed with hematochezia and hematemesis. #Syncopal episodes #Acute blood loss anemia #GI bleed, gastric bypass anastomosis site #Hematochezia #Hematemesis, resolved #Leukocytosis, resolved #Esophagitis #Colitis #Breast cancer, on chemotherapy (first chemo on 11/29/2024) ? Patient came in with complaints of bloody diarrhea as well as his bloody emesis since Tuesday. Has been having about 20 bowel movements per day ?Patient got her first dose of chemotherapy on November 29, 2024 and then experienced some diarrhea, but these were nonbloody initially. ?CT abdomen/pelvis showed colitis nonspecific pattern ? Patient got 6 units of PRBC, 1 FFP, 1 platelets during hospital stay ?Patient had EGD done on 12/11/2024 which showed esophagitis and bleeding from gastric bypass anastomosis site. ? Hemoglobin 6.9 today, no bloody BM today ? Blood cultures negative along with C diff and stool cultures ? Discontinue Flagyl and ciprofloxacin [12/10/2024-12/16/2024] Plan: -Pending possible transfer -1 PRBC and post H/H today ?IV Protonix and sucralfate ? GI consulted, appreciate recommendations ? Continue to monitor #Right superficial vein thrombosis ?Ultrasound Doppler of right upper extremity that showed right superficial cephalic vein nonocclusive thrombus as well as right basilic vein. Plan: ? Continue warm compress ? Chemical anticoagulation contraindicated due to GI bleed. #QTc prolongation ? Patient was noted to have continued prolongation on 12/11/2024 Plan: ? Will continue to monitor #Electrolyte imbalance #Hypokalemia, resolved #Hx of hypertension #Hx of anxiety ? Continue Xanax and paroxetine ? Will hold all antihypertensive medication for now Disposition: Patient pending transfer, getting 1 PRBC today Diet: Full liquid diet GI prophylaxis: protonix DVT prophylaxis: SCDs Code:Full Case disclosed with Attending Dr. Bingham and my senior Dr. Shantanu Valentine PGY1
--- NOTE | 2024-12-19 12:16 | PC.CM ---
Addendum entered by Radha Cha RN 12/19/24 19:01: Patient accepted at [facility]. Number to call for follow up is [phone]. number for [facility] . Thu with the transfer center states? she is hoping to have a bed open tonight.? I took packet with CD to ICU charge nurse and I gave hand off report. Addendum entered by Radha Cha RN 12/19/24 15:05: I faxed discharge summary to [facility] and I placed copy in chart. Original Note: 1100 Dr. Bingham asked me to speak patient because she was getting frustrated and wanted an update on transfer. I met with patient in her room with her nurse Marina. I let patient know that we were just able to get authorization from her insurance on Tuesday, so she has been financially cleared. I let her know that she was already medically accepted because Dr. Bay called his colleague and got him to accept patient. I let her know we are waiting for a bed to open up and she will be transferred once they have one available. I let her know most facilities are very busy and are not even accepting patients for transfer. Patient verbalized understanding. I let patient know she can ask for me at any time.
[2024-12-19 14:51] LABS: Path Review Blood Smear Sent to Pathologist
--- NOTE | 2024-12-19 14:56 | ESDS_ITS ---
Planned Discharge Date 12/19/24 DS: Providers Provider Date of admission: 12/10/24 21:36 Primary care physician: Hilda Meza MD Admitting Provider: Tony Seo MD Attending Provider on Admission: Kojo Bingham MD Consults: 12/10/24 21:20 Consult to Gastroenterology Stat Comment: Consulting Provider: Jae Bay 12/11/24 14:44 Referral Wound Care Routine Comment: suspicious area to right sacrum, pt. reports pain Attending Provider on DC: Kojo Bingham MD Discharging Provider: Kojo Bingham MD DS: Diagnosis Problem List Completed Was Problem List Reviewed/Reconciled?: Yes Hospital Course Hospital Course Hospital course: 49-year-old female with past medical history of breast cancer status post neoadjuvant chemotherapy (first section on November 29, 2024), hypertension, gastric bypass, and anxiety was admitted to the hospital on 12/10/2024 due to a syncopal episode likely in the setting of acute blood loss anemia secondary to GI bleed with hematochezia and hematemesis. Came into the ED with complaints of bloody diarrhea, syncopal episode, and episode of bloody emesis. GI was consulted at this time given that patient had acute blood loss anemia and did a EGD the next day of admission and it showed that the patient had esophagitis and bleeding from anastomosis site of gastric bypass. During the EGD epinephrine was injected around anastomosis site and 1 Endo Clip was placed. Given this patient was upgraded to the ICU for closer monitoring of patient's hemoglobin in the setting of active bleeding from anastomosis site. Throughout the patient's hospital stay she required a total of 6 units of PRBC, 1 FFP, 1 platelets given that she was continuously anemic with a hemoglobin below 7. Patient had around 1-2 more bowel movements that were bloody after the EGD was done, but afterwards she continued to have bowel movements that were nonbloody. Patient had slightly prolonged QTc while she was in the ICU and since she was on ciprofloxacin which could have prolonged QTc frequent EKGs were ordered, but patient's QTc was not prolonged and following EKGs done. She received IV antibiotics for some colitis that was initially seen in the CT scan, but these were discontinued on 12/16/2024. Patient was found to have a superficial vein thrombosis after she had IV line infiltrated in her right upper extremity, but given that patient was actively bleeding chemical anticoagulation was contraindicated at this time therefore only place warm compresses for this time. Patient's last PRBC transfusion was on 12/15/2024. Throughout the hospital stay she denied any dizziness, weakness, or further episodes of emesis. At the time of transfer patient was stable enough to be transferred to a tertiary care facility for further management. Discharge plan: ? Transferred to a tertiary care center Problem list: #Syncopal episodes #Acute blood loss anemia #GI bleed, gastric bypass anastomosis site #Hematochezia #Hematemesis, resolved #Leukocytosis, resolved #Esophagitis #Colitis #Breast cancer, on chemotherapy (first chemo on 11/29/2024) #Right superficial vein thrombosis #QTc prolongation #Electrolyte imbalance #Hypokalemia, resolved #Hx of hypertension #Hx of anxiety Case disclosed with Attending Dr. Bingham and my senior Dr. Shantanu Valentine PGY1 Time Spent with Patient Time attestation: Total time spent providing and/or coordinating discharge services: Exam Vital Signs Temp Pulse Resp BP Pulse Ox O2 Del Method O2 Flow Rate 97.9 F 78 16 117/72 97 Room Air 2 12/19/24 13:56 12/19/24 13:56 12/19/24 13:56 12/19/24 13:56 12/19/24 13:56 12/19/24 12:00 12/12/24 01:19 Narrative Exam General: A/O x3, no acute distress, sentimental Eyes: PERRL, EOMI. Anicteric, vision grossly intact. Ears: No ear pain, no ear discharge, Hearing grossly intact. Nose: No nasal discharge. Mouth/Throat: Moist mucous membranes, no redness, no lesions. Neck: Neck supple, non-tender, no cervical lymphadenopathy. Lungs: Clear KIM to auscultation and percussion, No accessory muscle use. Cardio: Normal S1/S2, regular rhythm, no murmurs, no JVD or carotid bruits. Abdomen: Soft, non-tender, no palpable masses, peristalsis present, no guarding or rebound. Extremities: Symmetrical, no significant deformities, no peripheral edema , non-tender, peripheral pulses presents. R UE swelling, continues to improve Skin: No rashes, no lesions, warm to touch. Neuro: No focal neurological deficits. motor and sensory intact. Psych: sentimental Discharge Plan Plan Patient Disposition: Xfer Other Patient condition on transfer: Stable Prescriptions/Referrals Prescriptions/Med Rec: No Action paroxetine HCl [Paxil] 10 mg Tablet 10 mg PO QDAY amlodipine 5 mg Tablet 5 mg PO QDAY norethindrone (contraceptive) [Kalani] 0.35 mg Tablet 0.35 mg PO QDAY alprazolam [Xanax] 1 mg tablet 1 mg PO BID PRN (Reason: anxiety) Qty: 14 0RF ciprofloxacin HCl [Cipro] 500 mg tablet 500 mg PO BID Qty: 14 0RF prochlorperazine maleate [Compazine] 10 mg tablet 10 mg PO Q8H PRN (Reason: nausea and vomiting) diphenoxylate-atropine [Lomotil] 2.5-0.025 mg tablet 1 tab PO QID PRN (Reason: diarrhea) Rx Instructions: 1 to 2 tabs. Max 8 tabs per day acetaminophen 650 mg tablet extended release 650 mg PO Q8H PRN (Reason: pain) Referrals: Hilda Meza MD [Primary Care Provider] - Patient/Caregiver Discharge Instructions Print Language: Cymraes Stand Alone Forms: Randee Award Info., Patient Portal Info Letter Discharge Order Discharge Orders: Discharge (Routine); Ordered 12/12/24 Ordered By: Stan Jackson Quality Discharge Quality Measures VTE prophylaxis
[2024-12-19 16:25] LABS: Hematocrit 21.8 % (36.0-46.0)
[2024-12-19 16:32] LABS: Hemoglobin 7.2 g/dL (12.0-16.0)
--- NOTE | 2024-12-19 17:57 | PD.RESEVENT ---
Documentation for date of: 12/19/24 Event Note Event Note: RIB PULLER called. Patient had a bright red bloody bowel movement and felt light headed and called RN. RIB PULLER was called and patient was slowly helped to the bed to lie down. BP was soft but MAP 80. Patient endorses feeling dizzy but improved while lying down. Patient had 1 unit PRBC transfused earlier today, post-transfusion hemoglobin only improved from 6.9 to 7.2 which was not enough given the unit of blood. 1L of LR was given. A stat CBC was ordered. I called GI Dr. Bay to let him know patient is actively bleeding, and he recommended to go ahead and transfuse 2 PRBC. Patient to be NPO and to use bedpan for now. With the ordered 2 units of blood, patient will have recieved 9 units of blood total + 1 FFP and 1 platelet. Will also order another 1 FFP and 1 platelet to maintain 4:1 ratio. If patient becomes short of breath or fluid overloaded, may consider Lasix in between infusions. RN called transfer nurse to see if any update on [facility] bed availability. No new updates. Nola Fournier MD PGY-3
[2024-12-19 18:16] LABS: Basophils % (Auto) 0 % (0-2.5); Eosinophils % (Auto) 0 % (0-10); Immature Granulocytes % (Auto) 0 % (0-0); Immature Granulocytes Auto 0.04 Thou/mm3 (0.00-0.00); Lymphocytes # (Auto) 1.7 Thou/mm3 (1.0-4.8); Lymphocytes % (Auto) 18 % (10-50); Mean Corpuscular HGB Conc 32.7 g/dl (31.0-37.0); Mean Corpuscular Volume 92 fL (80-100); Monocytes # (Auto) 0.8 Thou/mm3 (0.0-0.8); Monocytes % (Auto) 8 % (0-12); Neutrophils % (Auto) 74 % (37-80); Nucleated Red Blood Cell % 0 /100 WBC (0); Platelet Count 356 Thou/mm3 (140-440); RDW Standard Deviation 46.5 fL (36.4-46.3); Red Blood Count 2.17 Miln/mm3 (4.00-5.20); White Blood Count 9.5 Thou/mm3 (3.6-11.0)
[2024-12-19 18:25] LABS: Hematocrit 19.9 % (36.0-46.0); Hemoglobin 6.5 g/dL (12.0-16.0)
--- NOTE | 2024-12-19 19:05 | ESDS_ITS ---
Planned Discharge Date 12/19/24 DS: Providers Provider Date of admission: 12/10/24 21:36 Primary care physician: Hilda Meza MD Admitting Provider: Tony Seo MD Attending Provider on Admission: Kojo Bingham MD Consults: 12/10/24 21:20 Consult to Gastroenterology Stat Comment: Consulting Provider: Jae Bay 12/11/24 14:44 Referral Wound Care Routine Comment: suspicious area to right sacrum, pt. reports pain Attending Provider on DC: Nola Fournier MD Discharging Provider: Nola Fournier MD DS: Diagnosis Problem List Completed Was Problem List Reviewed/Reconciled?: Yes Hospital Course Hospital Course Hospital course: 49-year-old female with past medical history of triple positive breast cancer on neoadjuvant chemotherapy (first section on November 29, 2024), hypertension, gastric bypass 15 years ago, and anxiety who presented to the ED on 12/10 for syncope and hematochezia and hematemesis. Hemoglobin was 5.7, however the day prior was 10.5. CT of the abdomen showed colitis. Patient was thus admitted for acute symptomatic GI bleed. GI was consulted for EGD, which showed esophagitis and bleeding from an ulcer at the anastomosis site of gastric bypass. During the EGD epinephrine was injected around anastomosis site and 1 Endo Clip was placed. Given this patient was upgraded to the ICU for closer monitoring of patient's hemoglobin in the setting of active bleeding from anastomosis site. She was downgraded shortly after to Tele as her vitals and Hb level were stable, and she did not require pressors. Patient had around 1-2 more bowel movements that were bloody after the EGD was done, but afterwards she continued to have bowel movements that were nonbloody. Of note, patient had slightly prolonged QTc while she was in the ICU and since she was on ciprofloxacin which could have prolonged QTc frequent EKGs were ordered, but patient's QTc was not prolonged and following EKGs done. She received IV antibiotics for the colitis that was initially seen in the CT scan, but these were discontinued on 12/16/2024. Patient was found to have a superficial vein thrombosis after she had IV line infiltrated in her right upper extremity, but given that patient was actively bleeding chemical anticoagulation was contraindicated at this time therefore only place warm compresses for this time. Due to her continuous bleed, GI recommended for the patient to be transferred for surgical evaluation and repair of the actively bleeding gastric ulcer around the anastamosis site of her gastric bypass. Attempts have been made to transfer the patient. During this hospital stay, she received a total of 7 PRBC, 1 platelet, and 1 platelet. At the time of this document being written, another 2 units of PRBC, 1 unit FFP, and 1 unit of platelets are ordered to be transfused. Her vitals remain stable. Discharge plan: ? Transferred to a tertiary care center Problem list: #Acute symptomatic blood loss anemia secondary to #GI bleed, gastric bypass anastomosis site #Hematochezia #Hematemesis, resolved #Leukocytosis, resolved #Esophagitis #Colitis #Breast cancer, on chemotherapy (first chemo on 11/29/2024) #Right superficial vein thrombosis #QTc prolongation, resolved #Electrolyte imbalance #Hypokalemia, resolved #Hx of hypertension #Hx of anxiety I have reviewed and discussed the patient's care with my attending, Dr. Zachery Fournier MD PGY-3 Time Spent with Patient Time attestation: Total time spent providing and/or coordinating discharge services: 35 min Time spent: Greater than 30 minutes Exam Vital Signs Temp Pulse Resp BP Pulse Ox O2 Del Method O2 Flow Rate 98.7 F 77 17 116/68 97 Room Air 2 12/19/24 18:19 12/19/24 18:19 12/19/24 18:19 12/19/24 18:19 12/19/24 18:19 12/19/24 16:00 12/12/24 01:19 Narrative Exam Constitutional: AAO x 3, awake, mildly diaphoretic HEENT: NCAT. Vision grossly intact. Respiratory: CTAB bilaterally. Cardiac: RRR. Abdomen: Soft, non-distended, non-tender. MSK: RUE swelling with mild edema Skin: Warm, dry, intact. Tattoos noted. Neuro: Motor and sensation grossly intact. Psychiatric: Appropriate mood and affect. Discharge Plan Plan Patient Disposition: Xfer Other Patient condition on transfer: Stable Prescriptions/Referrals Prescriptions/Med Rec: No Action paroxetine HCl [Paxil] 10 mg Tablet 10 mg PO QDAY amlodipine 5 mg Tablet 5 mg PO QDAY norethindrone (contraceptive) [Kalani] 0.35 mg Tablet 0.35 mg PO QDAY alprazolam [Xanax] 1 mg tablet 1 mg PO BID PRN (Reason: anxiety) Qty: 14 0RF ciprofloxacin HCl [Cipro] 500 mg tablet 500 mg PO BID Qty: 14 0RF prochlorperazine maleate [Compazine] 10 mg tablet 10 mg PO Q8H PRN (Reason: nausea and vomiting) diphenoxylate-atropine [Lomotil] 2.5-0.025 mg tablet 1 tab PO QID PRN (Reason: diarrhea) Rx Instructions: 1 to 2 tabs. Max 8 tabs per day acetaminophen 650 mg tablet extended release 650 mg PO Q8H PRN (Reason: pain) Referrals: Hilda Meza MD [Primary Care Provider] - Patient/Caregiver Discharge Instructions Print Language: [place] Island[place] Stand Alone Forms: Randee Award Info., Patient Portal Info Letter Discharge Order Discharge Orders: Discharge (Routine); Ordered 12/12/24 Ordered By: Stan Jackson Quality Discharge Quality Measures VTE prophylaxis
[2024-12-19 19:42] LABS: Basophils % (Auto) 0 % (0-2.5); Eosinophils % (Auto) 0 % (0-10); Immature Granulocytes % (Auto) 1 % (0-0); Immature Granulocytes Auto 0.05 Thou/mm3 (0.00-0.00); Lymphocytes # (Auto) 1.1 Thou/mm3 (1.0-4.8); Lymphocytes % (Auto) 11 % (10-50); Mean Corpuscular HGB Conc 33.2 g/dl (31.0-37.0); Mean Corpuscular Hemoglobin 29.9 pg (25.0-35.0); Mean Corpuscular Volume 90 fL (80-100); Monocytes # (Auto) 0.6 Thou/mm3 (0.0-0.8); Monocytes % (Auto) 6 % (0-12); Neutrophils % (Auto) 83 % (37-80); Nucleated Red Blood Cell % 0 /100 WBC (0); Platelet Count 357 Thou/mm3 (140-440); RDW Standard Deviation 45.6 fL (36.4-46.3); Red Blood Count 2.21 Miln/mm3 (4.00-5.20); White Blood Count 10.9 Thou/mm3 (3.6-11.0)
[2024-12-19 19:46] LABS: Hematocrit 19.9 % (36.0-46.0); Hemoglobin 6.6 g/dL (12.0-16.0)
[2024-12-19] MEDS: Calcium Chloride 10% Inj 10 ML in DEXTROSE 5%-WATER 100 ML 110 ML IV (19:50)
[2024-12-19 19:53] LABS: D-Dimer 1680 ng/mL (<600)
[2024-12-19 19:57] LABS: Fibrinogen 372 mg/dL (175-375); INR 1.1 (0.9-1.3); Partial Thromboplastin Time 25.1 Seconds (22.0-36.0); Prothrombin Time 12.3 Seconds (9.0-12.2)
--- NOTE | 2024-12-19 21:46 | PD.IMPROG ---
Documentation for date of: 12/19/24 Subjective Subjective Interval history: Patient had bloody bowel movement and drop in hemoglobin to 6.6 It appears that she has restarted to bleed Call [facility] accepting physician no response Since active bleeding is going on would recommend to call [facility] and see if they will accept the patient Exam Vital Signs Temp Pulse Resp BP Pulse Ox O2 Del Method O2 Flow Rate 98.9 F 85 13 124/69 98 Room Air 2 12/19/24 20:23 12/19/24 21:00 12/19/24 21:00 12/19/24 21:00 12/19/24 21:00 12/19/24 16:00 12/12/24 01:19 Objective Labs 12/19/24 19:31 12/19/24 04:54 Labs: Laboratory Results - last 24 hr 12/19/24 12/19/24 12/19/24 04:54 06:41 16:11 WBC 6.9 RBC 2.33 L Hgb 6.9 L* 7.2 L Hct 21.1 L* 21.8 L* MCV 91 MCH 29.6 MCHC 32.7 RDW Std Deviation 46.5 H Plt Count 339 D Neut % (Auto) 68 Lymph % (Auto) 23 [place] % (Auto) 8 Eos % (Auto) 1 Baso % (Auto) 0 Neut # (Auto) 4.7 Lymph # (Auto) 1.6 [place] # (Auto) 0.6 Eos # (Auto) 0.0 Baso # (Auto) 0.0 Immature Gran # (Auto) 0.01 H Absolute Nucleated RBC 0.00 Immature Gran % 0 Nucleated RBC % 0 Smear Path Review Sent to Pathologist PT INR APTT Fibrinogen D-Dimer Sodium 145 Potassium 3.6 Chloride 106 Carbon Dioxide 32.4 H Anion Gap 7 BUN < 5 L Creatinine 0.6 Estim Creat Clear Calc 108.8 eGFR > 60 BUN/Creatinine Ratio 8 L Glucose 87 Calculated Osmolality 284 Calcium 8.3 Corrected Calcium 9.3 Magnesium 2.0 Total Bilirubin 0.2 L AST 46 H ALT 32 Alkaline Phosphatase 60 Total Protein 4.5 L Albumin 2.8 L Globulin 1.7 L Albumin/Globulin Ratio 1.6 Blood Type A Negative Antibody Screen NEGATIVE Crossmatch See Detail Blood Bank Wristband ID Yes 12/19/24 12/19/24 18:02 19:31 WBC 9.5 10.9 RBC 2.17 L 2.21 L Hgb 6.5 L* 6.6 L* Hct 19.9 L* 19.9 L* MCV 92 90 MCH 30.0 29.9 MCHC 32.7 33.2 RDW Std Deviation 46.5 H 45.6 Plt Count 356 357 Neut % (Auto) 74 83 H Lymph % (Auto) 18 11 [place] % (Auto) 8 6 Eos % (Auto) 0 0 Baso % (Auto) 0 0 Neut # (Auto) 7.0 9.0 H Lymph # (Auto) 1.7 1.1 [place] # (Auto) 0.8 0.6 Eos # (Auto) 0.0 0.0 Baso # (Auto) 0.0 0.0 Immature Gran # (Auto) 0.04 H 0.05 H Absolute Nucleated RBC 0.00 0.00 Immature Gran % 0 1 H Nucleated RBC % 0 0 Smear Path Review PT 12.3 H INR 1.1 APTT 25.1 Fibrinogen 372 D-Dimer 1680 H Sodium Potassium Chloride Carbon Dioxide Anion Gap BUN Creatinine Estim Creat Clear Calc eGFR BUN/Creatinine Ratio Glucose Calculated Osmolality Calcium Corrected Calcium Magnesium Total Bilirubin AST ALT Alkaline Phosphatase Total Protein Albumin Globulin Albumin/Globulin Ratio Blood Type Antibody Screen Crossmatch Blood Bank Wristband ID Impressions Impression: # Upper GI bleed secondary to anastomotic site ulceration most likely the cause Please have the transfer center and internal medicine try to transfer the patient to [facility] if they will accept her As there is no bed available at [facility] Repeat endoscopy will not be much helpful Assessment & Plan A&P Narrative # Hematemesis # Bloody diarrhea # Abnormal CT scan of the abdomen pelvis showing pancolitis Differential diagnosis include Infectious enterocolitis versus C. difficile enterocolitis Breast carcinoma undergoing roseanna adjuvant chemotherapy last dose November 29 Plan stool culture and sensitivity stool for C. difficile by PCR Stool for fecal calprotectin ANCA antibody Schedule fiberoptic esophagogastroduodenoscopy with possible therapeutic intervention possible biopsy under intravenous moderate sedation for evaluation of hematemesis I will wait for the stool culture and sensitivity as well as C. difficile before scheduling a colonoscopy for pancolitis Thank you once again for the opportunity to participate in the care of this patient Time Spent With Patient Time: Total time spent is greater than 50% in coordination of care (as documented) at patient's floor/unit and/or counseling patient:
[2024-12-19] MEDS: ALPRazoLAM 0.25 MG TABLET 1 MG PO (22:33)
--- NOTE | 2024-12-19 23:13 | PD.EVENT ---
Documentation for date of: 12/19/24 Event Note Event Note: Spoke with Dr. Octavio Banda MD mine exploration engineer at [facility] Patient had already been asked 72 hours ago I told him the patient is bleeding and she will need surgical intervention and she can be fixed endoscopically He was kind enough to arrange a emergency bed and patient will be going via air ambulance and not by road as she is actively bleeding I am extremely thankful to Dr. Banda for helping my patient
[2024-12-20] VITALS (9 sets, daily range): BP systolic 108–146; BP diastolic 53–67; PULSE 74–101; RESP 2–18; TEMP 37–37.4; O2SAT 92–99
[2024-12-20] MEDS: OCTREOTIDE ACET INJ 1,000 MCG in SODIUM CHLORIDE 0.9% 100 ML 5.1 MCG IV (01:11)
[2024-12-20 02:13] LABS: Hematocrit 23.7 % (36.0-46.0)
[2024-12-20 02:20] LABS: Hemoglobin 7.9 g/dL (12.0-16.0)
== END 2024-12-20 01:17 | disposition other institution (70) | DRG 377 ==
LOC: SERX 22:35 → SERHOLD 22:38 → S2NX 12-11 11:43 → S2SX 12-12 → S2NX 12-14 09:54 → S2SX 12-14 09:55 → S2NX 12-19 09:23 → S2SX 12-19 19:04
PROVIDERS: Internal Medicine; Registered Nurse General Practice; Specialist; Student in an Organized Health Care Education/Training Program; Admitting Provider Internal Medicine; Emergency Provider Emergency Medicine; PCP Internal Medicine Hematology & Oncology; Visit Provider Internal Medicine
PROC: (CPT 43239; principal; 2024-12-11 19:00)
DX: K25.4 Chronic or unspecified gastric ulcer with hemorrhage (principal); K20.91 Esophagitis, unspecified with bleeding; R57.8 Other shock; D62 Acute posthemorrhagic anemia; I82.611 Acute embolism and thrombosis of superficial veins of right upper extremity; K92.0 Hematemesis; R74.01 Elevation of levels of liver transaminase levels; C50.919 Malignant neoplasm of unspecified site of unspecified female breast; I10 Essential (primary) hypertension; K52.9 Noninfective gastroenteritis and colitis, unspecified; F41.9 Anxiety disorder, unspecified; E87.6 Hypokalemia; Z98.84 Bariatric surgery status; R94.31 Abnormal electrocardiogram [ECG] [EKG]; Z98.0 Intestinal bypass and anastomosis status; Z41.1 Encounter for cosmetic surgery; Z90.13 Acquired absence of bilateral breasts and nipples; Z90.49 Acquired absence of other specified parts of digestive tract; Z92.21 Personal history of antineoplastic chemotherapy; D69.6 Thrombocytopenia, unspecified; E83.51 Hypocalcemia; E86.0 Dehydration; M79.601 Pain in right arm
CPT/HCPCS: 36415; 36430; 80048; 80053; 80307; 81001; 83605; 83615; 83690; 83735; 83880; 84100; 84145; 84484; 85007; 85014; 85018; 85025; 85027; 85379; 85384; 85610; 85652; 85730; 86021; 86036; 86140; 86850; 86900; 86901; 86923; 86927; 86965; 87015; 87040; 87045; 87046; 87205; 87493; 87899; 93005; 93225; 93971; 96361; 96365; 96367; 96368; 99285; A4217; A4649; J0131; J0171; J0613; J0744; J1200; J2250; J2354; J3010; J3475; J3480; J3490; J7050; J7120; P9016; P9035; P9060; A9270; J1836